=== PATIENT | female | born 1980 ===

== ENCOUNTER 2018-02-05 11:28 | Emergency (ER) | payer OTHER ==
[~2018-02-05] VITALS: Ht 170.2 cm; Wt 129.3 kg
[~2018-02-05 11:28] MED LIST: AMOX500 PO; Advil200 M1 PO; Augmentin 875-1 EACH PO; BACL10 PO; Bactrim Ds Tab1 EACH PO; CEPH500 PO; DOCU100 PO; FAMO20 PO; GABA100 PO; GABA300 PO; GLIP2.5ER PO; HEARTBURN RELI150 M1 PO; HYDR1TAB94 PO; Humalog100 UNIT/1 SC; IBUP800; IBUP800 PO; INSLI100I; INSUASPI SC; INSULANPEN SC; LORA.5 PO; Lantus100 UNIT/1 SC; METF500C PO; MORP60ER PO; NICO14TP TOP; NITR100 PO; NYSTATIN1 EAC1 TOP; OXYC5 PO; PAROEX473 ML MM; PRAV20 PO; ROXICODONE5 MG PO; SULTRIDS PO; TRAM50 PO; TYLECOD3 PO; Tylenol325 MG PO
[2018-02-05] MEDS ORDERED: ELIQUIS5 MG PO (12:13)
== END 2018-02-05 12:43 | disposition home or self-care (01) ==
LOC: ER 11:28
DX: I10 Essential (primary) hypertension (principal); Z86.73 Personal history of transient ischemic attack (TIA), and cerebral infarction without residual deficits; Z91.018 Allergy to other foods; Z79.899 Other long term (current) drug therapy; Z79.84 Long term (current) use of oral hypoglycemic drugs; Z79.4 Long term (current) use of insulin; E11.9 Type 2 diabetes mellitus without complications; K21.9 Gastro-esophageal reflux disease without esophagitis
CPT/HCPCS: 99283

== ENCOUNTER 2018-02-11 14:29 | Emergency (ER) | payer OTHER ==
[~2018-02-11] VITALS: Ht 167.6 cm; Wt 136.1 kg
[~2018-02-11 14:29] MED LIST changes: +ELIQUIS5 MG PO
[2018-02-11 15:47] LABS: BASOPHILS ABSOLUTE AUTO 0.03 K/mm3 (0.00-0.23); BASOPHILS PERCENT AUTO 0 % (0-2); EOSINOPHILS ABSOLUTE AUTO 0.18 K/mm3 (0.00-0.68); EOSINOPHILS PERCENT AUTO 2 % (0-6); Hematocrit 40.5 % (33.0-51.0); Hemoglobin 13.9 g/dL (11.5-16.0); IMMATURE GRAN ABSOLUTE AUTO 0.01 K/mm3 (0.00-0.10); IMMATURE GRAN PERCENT AUTO 0 % (0-1); LYMPHOCYTES ABSOLUTE AUTO 3.16 K/mm3 (0.84-5.20); LYMPHOCYTES PERCENT AUTO 39 % (21-46); MONOCYTES ABSOLUTE AUTO 0.48 K/mm3 (0.16-1.47); MONOCYTES PERCENT AUTO 6 % (4-13); Mean Corpuscular HGB 31.2 pg (26.0-34.0); Mean Corpuscular HGB Conc 34.3 g/dL (31.5-36.5); Mean Corpuscular Volume 91 fL (80-100); Mean Platelet Volume 11.1 fL (9.1-12.4); NEUTROPHILS ABSOLUTE AUTO 4.23 K/mm3 (1.96-9.15); NEUTROPHILS PERCENT AUTO 52 % (41-73); Platelet Count 276 K/mm3 (150-400); RDW Standard Deviation 39.5 fL (35.1-46.3); Red Blood Cell Count 4.45 M/mm3 (3.80-5.20); White Blood Cell Count 8.09 K/mm3 (4.00-11.30)
[2018-02-11 16:00] LABS: International Normalized Ratio 0.95; Prothrombin Time Results 9.8 Sec (9.7-11.5)
[2018-02-11 16:06] LABS: Alanine Aminotransfer (ALT/SGP 66 U/L (12-78); Albumin, Blood 3.2 g/dL (3.4-5.0); Albumin/Globulin Ratio 0.7 (0.8-1.8); Alk Phos 165 U/L (50-136); Anion Gap 8 mmol/L (6-16); Aspartate Aminotrans (AST/SGOT 44 U/L (12-37); Bilirubin, Total 0.3 mg/dL (0.1-1.0); Blood Urea Nitrogen 21 mg/dL (8-24); Bun/Creatinine Ratio 37.2 (12.0-20.0); CO2, Blood 27 mmol/L (21-32); Calcium, Blood 8.6 mg/dL (8.5-10.1); Chloride, Blood 101 mmol/L (98-108); Creatinine, Blood 0.57 mg/dL (0.40-1.00); Globulin, Blood 4.6 g/dL (2.2-4.0); Glomerular Filtration Rate >60 (60-); Glucose, Blood 278 mg/dL (70-99); Potassium, Blood 4.4 mmol/L (3.5-5.5); Sodium, Blood 136 mmol/L (136-145); Total Protein, Blood 7.8 g/dL (6.4-8.2)
== END 2018-02-11 17:28 | disposition home or self-care (01) ==
LOC: ER 14:29
PROVIDERS: Physician Assistant
DX: H53.9 Unspecified visual disturbance (principal); E11.9 Type 2 diabetes mellitus without complications; K21.9 Gastro-esophageal reflux disease without esophagitis; Z91.018 Allergy to other foods; Z79.899 Other long term (current) drug therapy; Z79.4 Long term (current) use of insulin; Z79.01 Long term (current) use of anticoagulants; Z87.891 Personal history of nicotine dependence; Z86.73 Personal history of transient ischemic attack (TIA), and cerebral infarction without residual deficits
CPT/HCPCS: 70450; 80053; 82947; 85025; 85610; 93005; 93010; 99284-25

== ENCOUNTER 2018-02-21 22:11 | Inpatient (IN) | payer OTHER ==
[~2018-02-21] VITALS: Ht 167.6 cm; Wt 136.1 kg
[2018-02-21 22:49] LABS: BASOPHILS ABSOLUTE AUTO 0.02 K/mm3 (0.00-0.23); BASOPHILS PERCENT AUTO 0 % (0-2); EOSINOPHILS ABSOLUTE AUTO 0.19 K/mm3 (0.00-0.68); EOSINOPHILS PERCENT AUTO 2 % (0-6); Hematocrit 43.5 % (33.0-51.0); Hemoglobin 14.4 g/dL (11.5-16.0); IMMATURE GRAN ABSOLUTE AUTO 0.02 K/mm3 (0.00-0.10); IMMATURE GRAN PERCENT AUTO 0 % (0-1); LYMPHOCYTES ABSOLUTE AUTO 3.05 K/mm3 (0.84-5.20); LYMPHOCYTES PERCENT AUTO 32 % (21-46); MONOCYTES ABSOLUTE AUTO 0.56 K/mm3 (0.16-1.47); MONOCYTES PERCENT AUTO 6 % (4-13); Mean Corpuscular HGB 31.2 pg (26.0-34.0); Mean Corpuscular HGB Conc 33.1 g/dL (31.5-36.5); Mean Platelet Volume 10.5 fL (9.1-12.4); NEUTROPHILS ABSOLUTE AUTO 5.81 K/mm3 (1.96-9.15); NEUTROPHILS PERCENT AUTO 60 % (41-73); Platelet Count 211 K/mm3 (150-400); RDW Coefficient Variation 12.2 % (11.7-14.2); RDW Standard Deviation 42.2 fL (35.1-46.3); Red Blood Cell Count 4.62 M/mm3 (3.80-5.20); White Blood Cell Count 9.65 K/mm3 (4.00-11.30)
[2018-02-21 22:50] LABS: Mean Corpuscular Volume 94 fL (80-100)
[2018-02-21 23:06] LABS: Alanine Aminotransfer (ALT/SGP 46 U/L (12-78); Albumin, Blood 3.1 g/dL (3.4-5.0); Albumin/Globulin Ratio 0.7 (0.8-1.8); Alk Phos 141 U/L (50-136); Anion Gap 8 mmol/L (6-16); Aspartate Aminotrans (AST/SGOT 26 U/L (12-37); Bilirubin, Total 0.3 mg/dL (0.1-1.0); Blood Urea Nitrogen 18 mg/dL (8-24); Bun/Creatinine Ratio 14.4 (12.0-20.0); CO2, Blood 26 mmol/L (21-32); Calcium, Blood 8.5 mg/dL (8.5-10.1); Chloride, Blood 102 mmol/L (98-108); Creatinine, Blood 1.25 mg/dL (0.40-1.00); Globulin, Blood 4.5 g/dL (2.2-4.0); Glomerular Filtration Rate 51 (60-); Glucose, Blood 198 mg/dL (70-99); Potassium, Blood 4.2 mmol/L (3.5-5.5); Sodium, Blood 136 mmol/L (136-145); Total Protein, Blood 7.6 g/dL (6.4-8.2); Troponin I <0.015 ng/mL (0.000-0.040)
[2018-02-21 23:14] LABS: Source, Urine Catheter
[2018-02-21 23:21] LABS: Bilirubin, Urine Neg (Neg); Blood, Urine Neg (Neg); Glucose Qualitative, Urine 2+ (Neg); Ketones, Urine Neg (Neg); Leukocyte Esterase, Urine 2+ (Neg); Nitrite, Urine Pos (Neg); Protein, Urine 1+ (Neg); Urobilinogen, Urine NORM (Normal)
[2018-02-21 23:21] LABS: International Normalized Ratio 0.92; Prothrombin Time Results 9.5 Sec (9.7-11.5)
[2018-02-21 23:26] LABS: Appearance, Urine Hazy (Clear); Color, Urine Yellow (P-Yellow)
[2018-02-21 23:27] LABS: Bacteria Many /hpf; Red Blood Cells, Urine Not Seen /hpf (0-2); Squamous Epithelial Cells Rare /hpf (Few)
[2018-02-21 23:36] LABS: U Amphetamine Screen Not Detected; U Barbituate Screen Not Detected; U Benzodiazapine Screen Not Detected; U Buprenorphine Screen Not Detected; U Cannabinoids Screen DETECTED; U Cocaine Screen Not Detected; U Methadone Screen Not Detected; U Methamphetamine Screen Not Detected; U Opiates Screen Not Detected; U Oxycodone Screen Not Detected; U Phencyclidine Screen Not Detected; U Propoxyphene Screen Not Detected
[2018-02-23] MEDS ORDERED: CEPH500 PO (12:33)
[2018-02-23] MEDS ORDERED: LEVE500 PO (12:35)
[2018-02-23] MEDS ORDERED: Prinivil10 MG PO (12:44)
[2018-02-23] MEDS ORDERED: METF500C PO (12:45)
[2018-02-25] MEDS ORDERED: GUAI600T33 PO (14:01)
[2018-02-25] MEDS ORDERED: FLONASE ALLERG9.9 ML (14:03)
[2018-02-25] MEDS ORDERED: NYSTATIN1 EAC1 TOP (14:04)
[2018-02-25] MEDS ORDERED: BISA10S PR (14:07)
[2018-02-25] MEDS ORDERED: DOCU100 PO (14:09)
[2018-03-02] MEDS ORDERED: ASPI325 PO (16:07)
[2018-03-02] MEDS ORDERED: INSULANPEN SC (16:08)
== END 2018-02-25 17:23 | disposition home or self-care (01) | DRG 690 ==
LOC: ER 22:11 → MEDS 22:12 → ICUE 02-22 09:51 → MEDS 02-23 14:59 → ENPENDDIS 02-25 13:30 → MEDS 02-25 17:23
PROVIDERS: Emergency Medicine
DX: N39.0 Urinary tract infection, site not specified (principal); G82.20 Paraplegia, unspecified; I69.354 Hemiplegia and hemiparesis following cerebral infarction affecting left non-dominant side; Z68.42 Body mass index [BMI] 45.0-49.9, adult; I11.9 Hypertensive heart disease without heart failure; Z79.01 Long term (current) use of anticoagulants; Z79.4 Long term (current) use of insulin; E66.01 Morbid (severe) obesity due to excess calories; I10 Essential (primary) hypertension; F15.10 Other stimulant abuse, uncomplicated; G40.909 Epilepsy, unspecified, not intractable, without status epilepticus; F31.9 Bipolar disorder, unspecified; B95.2 Enterococcus as the cause of diseases classified elsewhere; Z87.891 Personal history of nicotine dependence
CPT/HCPCS: 36415; 70450; 70496; 70498; 70551; 80053; 81001; 82947; 83036; 84484; 85025; 85610; 85730; 87077; 87086; 87186; 92610; 93005; 93010; 96361; 96365; 99285-25; G0378; G8996; G8997; G8998; J0696; J1815; J7030; J7050; P9612; Q9967

== ENCOUNTER 2018-03-27 12:56 | Emergency (ER) | payer OTHER ==
[~2018-03-27] VITALS: Ht 170.2 cm; Wt 143.3 kg
[~2018-03-27 12:56] MED LIST changes: +ALBU90OI6 INH; +ASPI325 PO; +BASAGLAR K100 UNIT/1 SC; +BISA10S PR; +Cyclobenzaprine5 MG PO; +FLONASE ALLERG9.9 ML; +GUAI600T33 PO; +LEVE500 PO; +Prinivil10 MG PO
[2018-03-27 14:38] LABS: BASOPHILS ABSOLUTE AUTO 0.02 K/mm3 (0.00-0.23); BASOPHILS PERCENT AUTO 0 % (0-2); EOSINOPHILS ABSOLUTE AUTO 0.11 K/mm3 (0.00-0.68); EOSINOPHILS PERCENT AUTO 1 % (0-6); Hematocrit 47.1 % (33.0-51.0); Hemoglobin 15.8 g/dL (11.5-16.0); IMMATURE GRAN ABSOLUTE AUTO 0.02 K/mm3 (0.00-0.10); IMMATURE GRAN PERCENT AUTO 0 % (0-1); LYMPHOCYTES ABSOLUTE AUTO 2.54 K/mm3 (0.84-5.20); LYMPHOCYTES PERCENT AUTO 26 % (21-46); MONOCYTES ABSOLUTE AUTO 0.52 K/mm3 (0.16-1.47); MONOCYTES PERCENT AUTO 5 % (4-13); Mean Corpuscular HGB 30.6 pg (26.0-34.0); Mean Corpuscular HGB Conc 33.5 g/dL (31.5-36.5); Mean Corpuscular Volume 91 fL (80-100); Mean Platelet Volume 10.8 fL (9.1-12.4); NEUTROPHILS ABSOLUTE AUTO 6.76 K/mm3 (1.96-9.15); NEUTROPHILS PERCENT AUTO 68 % (41-73); Platelet Count 253 K/mm3 (150-400); RDW Coefficient Variation 11.3 % (11.7-14.2); RDW Standard Deviation 38.2 fL (35.1-46.3); Red Blood Cell Count 5.16 M/mm3 (3.80-5.20); White Blood Cell Count 9.97 K/mm3 (4.00-11.30)
[2018-03-27 14:52] LABS: Alanine Aminotransfer (ALT/SGP 33 U/L (12-78); Albumin, Blood 3.5 g/dL (3.4-5.0); Albumin/Globulin Ratio 0.7 (0.8-1.8); Alk Phos 143 U/L (50-136); Anion Gap 9 mmol/L (6-16); Aspartate Aminotrans (AST/SGOT 21 U/L (12-37); Bilirubin, Total 0.4 mg/dL (0.1-1.0); Blood Urea Nitrogen 20 mg/dL (8-24); Bun/Creatinine Ratio 30.4 (12.0-20.0); CO2, Blood 26 mmol/L (21-32); Calcium, Blood 9.3 mg/dL (8.5-10.1); Chloride, Blood 100 mmol/L (98-108); Creatinine, Blood 0.66 mg/dL (0.40-1.00); Glomerular Filtration Rate >60 (60-); Glucose, Blood 246 mg/dL (70-99); Potassium, Blood 4.4 mmol/L (3.5-5.5); Sodium, Blood 135 mmol/L (136-145); Total Protein, Blood 8.5 g/dL (6.4-8.2)
[2018-03-27] MEDS ORDERED: Doxycycline Hy100 MG PO (16:59)
[2018-03-29] MEDS ORDERED: HYDR1TAB94 PO (15:48)
== END 2018-03-27 18:49 | disposition home or self-care (01) ==
LOC: ER 12:56
PROVIDERS: Emergency Medicine
DX: L03.115 Cellulitis of right lower limb (principal); Z91.018 Allergy to other foods; Z79.899 Other long term (current) drug therapy; Z88.8 Allergy status to other drugs, medicaments and biological substances; Z79.4 Long term (current) use of insulin; Z79.82 Long term (current) use of aspirin; E11.9 Type 2 diabetes mellitus without complications; K21.9 Gastro-esophageal reflux disease without esophagitis; Z87.891 Personal history of nicotine dependence
CPT/HCPCS: 36415; 73701; 80053; 85025; 96361; 96374; 99284-25; J2270; J7030; Q9967

== ENCOUNTER 2018-03-28 11:37 | Emergency (ER) | payer OTHER ==
[~2018-03-28] VITALS: Ht 170.2 cm; Wt 143.3 kg
[~2018-03-28 11:37] MED LIST changes: +Doxycycline Hy100 MG PO
[2018-03-29] MEDS ORDERED: HYDR1TAB94 PO (15:48)
== END 2018-03-28 13:25 | disposition home or self-care (01) ==
LOC: ER 11:37
DX: L03.115 Cellulitis of right lower limb (principal); E11.9 Type 2 diabetes mellitus without complications; K21.9 Gastro-esophageal reflux disease without esophagitis; Z91.018 Allergy to other foods; Z88.6 Allergy status to analgesic agent; Z79.899 Other long term (current) drug therapy; Z79.4 Long term (current) use of insulin; Z79.01 Long term (current) use of anticoagulants; Z79.82 Long term (current) use of aspirin; Z87.891 Personal history of nicotine dependence
CPT/HCPCS: 99282

== ENCOUNTER 2018-05-13 09:12 | Emergency (ER) | payer OTHER ==
[~2018-05-13] VITALS: Ht 167.6 cm; Wt 136.1 kg
[2018-05-13] MEDS ORDERED: INSULANPEN (09:24)
[2018-05-13] MEDS ORDERED: FAMO20 PO (09:25)
[2018-05-13] MEDS ORDERED: ADMELOG SO100 UNIT/1 SQ (09:26)
[2018-05-13 09:53] LABS: BASOPHILS ABSOLUTE AUTO 0.02 K/mm3 (0.00-0.23); BASOPHILS PERCENT AUTO 0 % (0-2); EOSINOPHILS PERCENT AUTO 1 % (0-6); Hematocrit 43.2 % (33.0-51.0); Hemoglobin 14.8 g/dL (11.5-16.0); IMMATURE GRAN ABSOLUTE AUTO 0.04 K/mm3 (0.00-0.10); IMMATURE GRAN PERCENT AUTO 1 % (0-1); LYMPHOCYTES ABSOLUTE AUTO 3.07 K/mm3 (0.84-5.20); LYMPHOCYTES PERCENT AUTO 40 % (21-46); MONOCYTES ABSOLUTE AUTO 0.59 K/mm3 (0.16-1.47); MONOCYTES PERCENT AUTO 8 % (4-13); Mean Corpuscular HGB 30.5 pg (26.0-34.0); Mean Corpuscular HGB Conc 34.3 g/dL (31.5-36.5); Mean Corpuscular Volume 89 fL (80-100); Mean Platelet Volume 10.5 fL (9.1-12.4); NEUTROPHILS ABSOLUTE AUTO 3.92 K/mm3 (1.96-9.15); NEUTROPHILS PERCENT AUTO 51 % (41-73); Platelet Count 223 K/mm3 (150-400); RDW Coefficient Variation 11.5 % (11.7-14.2); RDW Standard Deviation 36.8 fL (35.1-46.3); Red Blood Cell Count 4.86 M/mm3 (3.80-5.20); White Blood Cell Count 7.74 K/mm3 (4.00-11.30)
[2018-05-13 10:09] LABS: Alanine Aminotransfer (ALT/SGP 30 U/L (12-78); Albumin, Blood 3.3 g/dL (3.4-5.0); Albumin/Globulin Ratio 0.8 (0.8-1.8); Alk Phos 157 U/L (50-136); Anion Gap 7 mmol/L (6-16); Aspartate Aminotrans (AST/SGOT 16 U/L (12-37); Bilirubin, Total 0.3 mg/dL (0.1-1.0); Blood Urea Nitrogen 21 mg/dL (8-24); Bun/Creatinine Ratio 38.5 (12.0-20.0); CO2, Blood 24 mmol/L (21-32); Calcium, Blood 8.4 mg/dL (8.5-10.1); Chloride, Blood 104 mmol/L (98-108); Creatinine, Blood 0.55 mg/dL (0.40-1.00); Globulin, Blood 4.3 g/dL (2.2-4.0); Glomerular Filtration Rate >60 (60-); Glucose, Blood 278 mg/dL (70-99); Potassium, Blood 4.1 mmol/L (3.5-5.5); Sodium, Blood 135 mmol/L (136-145); Total Protein, Blood 7.6 g/dL (6.4-8.2); Troponin I <0.015 ng/mL (0.000-0.040)
== END 2018-05-13 14:43 | disposition home or self-care (01) ==
LOC: ER 09:12
PROVIDERS: Emergency Medicine
DX: R51 Headache (principal); R07.9 Chest pain, unspecified; E11.9 Type 2 diabetes mellitus without complications; K21.9 Gastro-esophageal reflux disease without esophagitis; Z91.018 Allergy to other foods; Z88.6 Allergy status to analgesic agent; Z79.899 Other long term (current) drug therapy; Z79.01 Long term (current) use of anticoagulants; Z79.4 Long term (current) use of insulin; Z79.82 Long term (current) use of aspirin
CPT/HCPCS: 36415; 70450; 80053; 84484; 85025; 93005; 93010; 96361; 96374; 96375; 99284-25; J1200; J1630; J2765; J7030

== ENCOUNTER 2018-06-03 16:55 | Observation (INO) | payer OTHER ==
[~2018-06-03] VITALS: Ht 170.2 cm; Wt 150.2 kg
[~2018-06-03 16:55] MED LIST changes: +ADMELOG SO100 UNIT/1 SQ; +INSULANPEN
[2018-06-03 17:55] LABS: BASOPHILS ABSOLUTE AUTO 0.02 K/mm3 (0.00-0.23); BASOPHILS PERCENT AUTO 0 % (0-2); EOSINOPHILS ABSOLUTE AUTO 0.12 K/mm3 (0.00-0.68); EOSINOPHILS PERCENT AUTO 1 % (0-6); Hematocrit 44.6 % (33.0-51.0); Hemoglobin 15.1 g/dL (11.5-16.0); IMMATURE GRAN ABSOLUTE AUTO 0.03 K/mm3 (0.00-0.10); IMMATURE GRAN PERCENT AUTO 0 % (0-1); LYMPHOCYTES ABSOLUTE AUTO 3.08 K/mm3 (0.84-5.20); LYMPHOCYTES PERCENT AUTO 32 % (21-46); MONOCYTES ABSOLUTE AUTO 0.58 K/mm3 (0.16-1.47); MONOCYTES PERCENT AUTO 6 % (4-13); Mean Corpuscular HGB 30.3 pg (26.0-34.0); Mean Corpuscular HGB Conc 33.9 g/dL (31.5-36.5); Mean Corpuscular Volume 89 fL (80-100); Mean Platelet Volume 10.4 fL (9.1-12.4); NEUTROPHILS ABSOLUTE AUTO 5.92 K/mm3 (1.96-9.15); NEUTROPHILS PERCENT AUTO 61 % (41-73); Platelet Count 278 K/mm3 (150-400); RDW Coefficient Variation 11.6 % (11.7-14.2); RDW Standard Deviation 37.5 fL (35.1-46.3); Red Blood Cell Count 4.99 M/mm3 (3.80-5.20); White Blood Cell Count 9.75 K/mm3 (4.00-11.30)
[2018-06-03 18:15] LABS: Alanine Aminotransfer (ALT/SGP 40 U/L (12-78); Albumin, Blood 3.5 g/dL (3.4-5.0); Albumin/Globulin Ratio 0.7 (0.8-1.8); Alk Phos 144 U/L (50-136); Anion Gap 6 mmol/L (6-16); Aspartate Aminotrans (AST/SGOT 14 U/L (12-37); Bilirubin, Total 0.4 mg/dL (0.1-1.0); Blood Urea Nitrogen 14 mg/dL (8-24); Bun/Creatinine Ratio 20.3 (12.0-20.0); CO2, Blood 26 mmol/L (21-32); Calcium, Blood 8.8 mg/dL (8.5-10.1); Chloride, Blood 103 mmol/L (98-108); Creatinine, Blood 0.69 mg/dL (0.40-1.00); Globulin, Blood 4.9 g/dL (2.2-4.0); Glomerular Filtration Rate >60 (60-); Glucose, Blood 233 mg/dL (70-99); Sodium, Blood 135 mmol/L (136-145); Total Protein, Blood 8.4 g/dL (6.4-8.2)
--- NOTE | 2018-06-04 04:11 | NUR ---
SHIFT SUMMARY 8991 RECEIVED PT TO 355 VIA W/C FROM ER. A&O, ABLE TO PIVOT TX SELF TO BED. RECEIVED REPORT FROM TANA NEGRETE, PT SENT TO ER FROM PODIATRY FOR I&D ON LATERAL R FOOT. PER REPORT, U/S DONE NOT SHOWING NEED FOR I&D AT THIS TIME. PT ADMITTED FOR CELLULITIS. IV ABX STARTED. PLACED IN CONTACT ISO FOR HX OF MRSA AND ESBL. PT RECEIVED IV DILAUDID IN ER. PER REPORT, PT SOON VOMITED AFTERWARD. ZOFRAN ADMIN AFTER COMING TO . PT WITH HX PARAPLEGIC, SEIZURES, TIAS, AND IDDM. CONSULT ORDERED FOR DR BARRERA. ATTEMPTED TO CALL, BUT DR BARRERA DOES NOT USE ANS. DAY RN WILL NEED TO COMPLETE CONSULT WHEN OFFICE IS OPEN. SCD'S ORDERED; PT REFUSED. INCONTINENT OF BOWEL AND BLADDER, PT REPORTED THAT SHE IS UNAWARE OF WHEN SHE VOIDS OR HAS BM. PT CLEANED AND CHANGED. MEDICATED FOR C/O PAIN IN R FOOT; PER EMAR. DENIED FURTHER NEEDS. CALL LT IN REACH.
[2018-06-04 04:48] LABS: Hematocrit 39.7 % (33.0-51.0); Hemoglobin 13.2 g/dL (11.5-16.0); Mean Corpuscular HGB 30.2 pg (26.0-34.0); Mean Corpuscular HGB Conc 33.2 g/dL (31.5-36.5); Mean Corpuscular Volume 91 fL (80-100); Mean Platelet Volume 10.3 fL (9.1-12.4); Platelet Count 234 K/mm3 (150-400); RDW Coefficient Variation 11.6 % (11.7-14.2); RDW Standard Deviation 38.6 fL (35.1-46.3); Red Blood Cell Count 4.37 M/mm3 (3.80-5.20); White Blood Cell Count 11.74 K/mm3 (4.00-11.30)
[2018-06-04 05:11] LABS: International Normalized Ratio 0.97
--- NOTE | 2018-06-04 15:29 | NUR ---
SUMMARY PT IS A/O X4, PLEASANT AFFECT. SHE STATE NO FEELING BACK OF LEGS FROM TAILBONE DOWN R/T HX SPINAL CORD FX. STATE SHE DOES HAVE SOME FEELING FRONT OF LEGS & HAS BEEN HAVING ACUTE R FOOT PAIN & SPASMS. PODIATRY CONSULT CALLED THIS AM TO DR MARQUEZ, IN TO ASSESS R FOOT, NO OPEN AREAS, FOOT IS SOMEWHAT SWOLLEN. ORDER MRI & STATE NON WT BRG R FOOT UNTIL HE SEE RESULTS. IV ANTIBX CONTINUE. HER PERIPHERAL IV FAIL THIS AM, EMERGENCY DEPARTMENT AIDE PLACE RACIEL POWERGLIDE. BLOOD SUGARS 200'S, DR LUNA AWARE. PT STATE @ BASELINE SHE IS ABLE TO STAND-PIVOT TO W/C. STATE NO CONTORL OF URINE/BOWELS, INCONT. VSS.
[2018-06-04 22:34] LABS: Vancomycin, Trough 14.7 ug/mL (5.0-10.0)
--- NOTE | 2018-06-05 04:51 | NUR ---
SHIFT SUMMARY A/O X4, ABLE TO MAKE NEEDS KNOWN. COOPERATIVE WITH CARE. CALLS AND ANSWERS QUESTIONS APPROPRIATELY. C/O PAIN/DISCOMFORT T/O SHIFT RATED 8/10 TO RLE; MEDICATED PER EMAR. HYPERTENSIVE THIS AM; WILL RE-CHECK; AFEBRILE. DID NOT APPEAR TO REST MUCH OF SHIFT. IV ABX INFUSED WITHOUT COMPLICATION TO RACIEL POWERGLIDE. BLOOD GLUCOSE 284; COVERAGE PER EMAR. NO ACUTE CHANGES NOTED OVERNIGHT. BED IN LOWEST POSITION. CALL LIGHT AND BELONGINGS WITHIN REACH. WCTM. REPORT TO ONCOMING RN.
[2018-06-05] MEDS ORDERED: CEPH250A PO (13:58)
--- NOTE | 2018-06-05 15:41 | NUR ---
SHIFT SUMMARY. PT DISCHARGED HOME VIA [facility] VIA PERSONAL W/C. POWERGLIDE IV REMOVED. NEW RX FAXED TO [facility] PER PT REQUEST. D/C PAPERWORK REVIEWED WITH PT AND COPY PROVIDED. PT HAD NO C/O N/V, PAIN, SOB THIS SHIFT. RLE WITHOUT S/SX OF CELLULITIS. NO NEW CHANGES.
== END 2018-06-05 15:32 | disposition home or self-care (01) ==
LOC: DELPENDDIS → ER 16:55 → MEDS 16:56 → ENPENDDIS 06-04 14:31 → MEDS 06-05 15:32
PROVIDERS: Nurse Practitioner Acute Care; Physician Assistant; ADMIT Family Medicine
DX: L03.115 Cellulitis of right lower limb (principal); I10 Essential (primary) hypertension; E11.9 Type 2 diabetes mellitus without complications; I69.351 Hemiplegia and hemiparesis following cerebral infarction affecting right dominant side; E66.01 Morbid (severe) obesity due to excess calories; Z79.899 Other long term (current) drug therapy; Z88.8 Allergy status to other drugs, medicaments and biological substances; Z79.82 Long term (current) use of aspirin; Z87.891 Personal history of nicotine dependence; Z79.4 Long term (current) use of insulin; Z98.890 Other specified postprocedural states; Z68.43 Body mass index [BMI] 50.0-59.9, adult
CPT/HCPCS: 36415; 73630; 73720; 76882; 80053; 80202; 82947; 83605; 85025; 85027; 85610; 86140; 87040; 94760; 96360; 96361; 96365; 96366; 96367; 96375; 96376; 99285-25; A9577; G0378; J0690; J1170; J2405; J2543; J3370; J7050

== ENCOUNTER 2018-08-24 10:24 | Emergency (ER) | payer OTHER ==
[~2018-08-24] VITALS: Ht 167.6 cm; Wt 142.9 kg
[~2018-08-24 10:24] MED LIST changes: +CEPH250A PO
[2018-08-24 12:53] LABS: BASOPHILS ABSOLUTE AUTO 0.02 K/mm3 (0.00-0.23); BASOPHILS PERCENT AUTO 0 % (0-2); EOSINOPHILS ABSOLUTE AUTO 0.11 K/mm3 (0.00-0.68); EOSINOPHILS PERCENT AUTO 1 % (0-6); Hematocrit 45.5 % (33.0-51.0); IMMATURE GRAN ABSOLUTE AUTO 0.03 K/mm3 (0.00-0.10); IMMATURE GRAN PERCENT AUTO 0 % (0-1); LYMPHOCYTES ABSOLUTE AUTO 2.63 K/mm3 (0.84-5.20); LYMPHOCYTES PERCENT AUTO 34 % (21-46); MONOCYTES PERCENT AUTO 5 % (4-13); Mean Corpuscular HGB 30.8 pg (26.0-34.0); Mean Corpuscular HGB Conc 35.2 g/dL (31.5-36.5); Mean Corpuscular Volume 88 fL (80-100); Mean Platelet Volume 11.7 fL (9.1-12.4); NEUTROPHILS ABSOLUTE AUTO 4.59 K/mm3 (1.96-9.15); NEUTROPHILS PERCENT AUTO 59 % (41-73); Platelet Count 220 K/mm3 (150-400); RDW Coefficient Variation 11.5 % (11.7-14.2); RDW Standard Deviation 36.7 fL (35.1-46.3); White Blood Cell Count 7.78 K/mm3 (4.00-11.30)
[2018-08-24 13:07] LABS: International Normalized Ratio 0.94
== END 2018-08-24 11:34 | disposition home or self-care (01) ==
LOC: ER 10:24
PROVIDERS: Physician Assistant
DX: T80.89XA Other complications following infusion, transfusion and therapeutic injection, initial encounter (principal); S30.1XXA Contusion of abdominal wall, initial encounter; X58.XXXA Exposure to other specified factors, initial encounter; Z88.8 Allergy status to other drugs, medicaments and biological substances; Z91.018 Allergy to other foods; Z79.899 Other long term (current) drug therapy; Z79.82 Long term (current) use of aspirin; Z79.4 Long term (current) use of insulin; E11.9 Type 2 diabetes mellitus without complications; K21.9 Gastro-esophageal reflux disease without esophagitis; Z86.73 Personal history of transient ischemic attack (TIA), and cerebral infarction without residual deficits; Z87.891 Personal history of nicotine dependence
CPT/HCPCS: 36415; 85025; 85610; 85730; 99283

== ENCOUNTER 2018-12-12 19:16 | Observation (INO) | payer OTHER ==
[~2018-12-12] VITALS: Ht 162.5 cm; Wt 142.9 kg
[~2018-12-12 19:16] MED LIST changes: +ADMELOG SO100 UNIT/1 SC; -ADMELOG SO100 UNIT/1 SQ; -FLONASE ALLERG9.9 ML; +Flonase 0.05% N16 GM; -INSULANPEN
[2018-12-12 20:12] LABS: BASOPHILS ABSOLUTE AUTO 0.02 K/mm3 (0.00-0.23); BASOPHILS PERCENT AUTO 0 % (0-2); EOSINOPHILS ABSOLUTE AUTO 0.09 K/mm3 (0.00-0.68); EOSINOPHILS PERCENT AUTO 1 % (0-6); Hemoglobin 16.3 g/dL (11.5-16.0); IMMATURE GRAN ABSOLUTE AUTO 0.03 K/mm3 (0.00-0.10); IMMATURE GRAN PERCENT AUTO 0 % (0-1); LYMPHOCYTES ABSOLUTE AUTO 2.02 K/mm3 (0.84-5.20); LYMPHOCYTES PERCENT AUTO 25 % (21-46); MONOCYTES ABSOLUTE AUTO 0.41 K/mm3 (0.16-1.47); MONOCYTES PERCENT AUTO 5 % (4-13); Mean Corpuscular HGB 31.3 pg (26.0-34.0); Mean Corpuscular HGB Conc 34.7 g/dL (31.5-36.5); Mean Corpuscular Volume 90 fL (80-100); Mean Platelet Volume 10.9 fL (9.1-12.4); NEUTROPHILS ABSOLUTE AUTO 5.44 K/mm3 (1.96-9.15); NEUTROPHILS PERCENT AUTO 68 % (41-73); Platelet Count 248 K/mm3 (150-400); RDW Coefficient Variation 11.8 % (11.7-14.2); RDW Standard Deviation 38.8 fL (35.1-46.3); White Blood Cell Count 8.01 K/mm3 (4.00-11.30)
[2018-12-12 20:35] LABS: Alanine Aminotransfer (ALT/SGP 116 U/L (12-78); Albumin, Blood 3.5 g/dL (3.4-5.0); Albumin/Globulin Ratio 0.7 (0.8-1.8); Alk Phos 241 U/L (50-136); Anion Gap 10 mmol/L (6-16); Aspartate Aminotrans (AST/SGOT 65 U/L (12-37); Bilirubin, Total 0.6 mg/dL (0.1-1.0); Blood Urea Nitrogen 13 mg/dL (8-24); Bun/Creatinine Ratio 22.3 (12.0-20.0); CO2, Blood 25 mmol/L (21-32); Calcium, Blood 8.7 mg/dL (8.5-10.1); Chloride, Blood 100 mmol/L (98-108); Creatinine, Blood 0.58 mg/dL (0.40-1.00); Globulin, Blood 4.9 g/dL (2.2-4.0); Glomerular Filtration Rate >60 (60-); Glucose, Blood 367 mg/dL (70-99); Sodium, Blood 135 mmol/L (136-145); Total Protein, Blood 8.4 g/dL (6.4-8.2)
--- NOTE | 2018-12-12 23:31 | NUR ---
too report on this patient from DELORES Flores RN
[2018-12-13 05:02] LABS: Hematocrit 43.6 % (33.0-51.0); Hemoglobin 14.8 g/dL (11.5-16.0); Mean Corpuscular HGB Conc 33.9 g/dL (31.5-36.5); Mean Corpuscular Volume 91 fL (80-100); Mean Platelet Volume 10.8 fL (9.1-12.4); Platelet Count 221 K/mm3 (150-400); RDW Coefficient Variation 11.8 % (11.7-14.2); RDW Standard Deviation 39.6 fL (35.1-46.3); Red Blood Cell Count 4.77 M/mm3 (3.80-5.20); White Blood Cell Count 6.95 K/mm3 (4.00-11.30)
[2018-12-13 05:42] LABS: Alanine Aminotransfer (ALT/SGP 91 U/L (12-78); Albumin, Blood 3.1 g/dL (3.4-5.0); Albumin/Globulin Ratio 0.7 (0.8-1.8); Alk Phos 188 U/L (50-136); Anion Gap 8 mmol/L (6-16); Aspartate Aminotrans (AST/SGOT 43 U/L (12-37); Bilirubin, Total 0.5 mg/dL (0.1-1.0); Blood Urea Nitrogen 14 mg/dL (8-24); Bun/Creatinine Ratio 21.6 (12.0-20.0); CO2, Blood 25 mmol/L (21-32); Calcium, Blood 8.2 mg/dL (8.5-10.1); Chloride, Blood 103 mmol/L (98-108); Creatinine, Blood 0.65 mg/dL (0.40-1.00); Globulin, Blood 4.2 g/dL (2.2-4.0); Glomerular Filtration Rate >60 (60-); Glucose, Blood 378 mg/dL (70-99); Potassium, Blood 4.1 mmol/L (3.5-5.5); Sodium, Blood 136 mmol/L (136-145); Total Protein, Blood 7.3 g/dL (6.4-8.2)
--- NOTE | 2018-12-13 19:42 | NUR ---
SHIFT SUMMARY: NO ACUTE CHANGES TO REPORT THIS SHIFT. PT A&O; CALM AND COOPERATIVE WITH CARE. MEDICATED FOR R FOOT PAIN PER EMAR; PODIATRY CONSULT REQUESTED c DR MORRIS THIS SHIFT. PT WHEELCHAIR BOUND AT HOME; INCONTINENT OF BOWEL & BLADDER; ATTENDS IN PLACE. REPORT GIVEN TO ONCOMING RN.
--- NOTE | 2018-12-14 04:14 | NUR ---
12/14/18 0410 WATCHING TV AND C/O RT FOOT PAIN AT LEVEL "10". MEDICATED PER JUL.TAKING ORAL FLUIDS WELL. VITALS STABLE. NO OTHER S/S OR COMPLAINTS. INCONT. OF URINE AND CHANGED REGULARLY BY SENIOR REGULATORY AFFAIRS SPECIALIST.
[2018-12-14 04:43] LABS: BASOPHILS ABSOLUTE AUTO 0.02 K/mm3 (0.00-0.23); BASOPHILS PERCENT AUTO 0 % (0-2); EOSINOPHILS PERCENT AUTO 1 % (0-6); Hematocrit 41.3 % (33.0-51.0); Hemoglobin 13.8 g/dL (11.5-16.0); IMMATURE GRAN ABSOLUTE AUTO 0.03 K/mm3 (0.00-0.10); IMMATURE GRAN PERCENT AUTO 0 % (0-1); LYMPHOCYTES ABSOLUTE AUTO 2.24 K/mm3 (0.84-5.20); LYMPHOCYTES PERCENT AUTO 31 % (21-46); MONOCYTES PERCENT AUTO 7 % (4-13); Mean Corpuscular HGB 30.1 pg (26.0-34.0); Mean Corpuscular HGB Conc 33.4 g/dL (31.5-36.5); Mean Corpuscular Volume 90 fL (80-100); Mean Platelet Volume 10.9 fL (9.1-12.4); NEUTROPHILS ABSOLUTE AUTO 4.28 K/mm3 (1.96-9.15); NEUTROPHILS PERCENT AUTO 60 % (41-73); Platelet Count 202 K/mm3 (150-400); RDW Coefficient Variation 11.9 % (11.7-14.2); RDW Standard Deviation 38.5 fL (35.1-46.3); Red Blood Cell Count 4.59 M/mm3 (3.80-5.20); White Blood Cell Count 7.17 K/mm3 (4.00-11.30)
[2018-12-14 05:01] LABS: Alanine Aminotransfer (ALT/SGP 93 U/L (12-78); Albumin, Blood 3.1 g/dL (3.4-5.0); Albumin/Globulin Ratio 0.8 (0.8-1.8); Alk Phos 126 U/L (50-136); Anion Gap 6 mmol/L (6-16); Aspartate Aminotrans (AST/SGOT 47 U/L (12-37); Bilirubin, Total 0.6 mg/dL (0.1-1.0); Blood Urea Nitrogen 15 mg/dL (8-24); Bun/Creatinine Ratio 22.1 (12.0-20.0); CO2, Blood 28 mmol/L (21-32); Calcium, Blood 8.6 mg/dL (8.5-10.1); Chloride, Blood 102 mmol/L (98-108); Creatinine, Blood 0.68 mg/dL (0.40-1.00); Globulin, Blood 3.8 g/dL (2.2-4.0); Glomerular Filtration Rate >60 (60-); Glucose, Blood 308 mg/dL (70-99); Potassium, Blood 4.1 mmol/L (3.5-5.5); Sodium, Blood 136 mmol/L (136-145); Total Protein, Blood 6.9 g/dL (6.4-8.2)
--- NOTE | 2018-12-14 19:34 | NUR ---
SHIFT SUMMARY: NO ACUTE CHANGES TO REPORT THIS SHIFT. PT A&O; CALM AND COOPERATIVE WITH CARE. MEDICATED FOR R FOOT PAIN PER EMAR. PODIATRY (DR MORRIS) CONSULTED THIS SHIFT - AWAITING ASSESSMENT. IV ABX CONTINUING. REPORT GIVEN TO ONCOMING RN.
[2018-12-15 04:54] LABS: BASOPHILS ABSOLUTE AUTO 0.02 K/mm3 (0.00-0.23); BASOPHILS PERCENT AUTO 0 % (0-2); EOSINOPHILS ABSOLUTE AUTO 0.09 K/mm3 (0.00-0.68); EOSINOPHILS PERCENT AUTO 1 % (0-6); Hematocrit 44.5 % (33.0-51.0); IMMATURE GRAN ABSOLUTE AUTO 0.04 K/mm3 (0.00-0.10); IMMATURE GRAN PERCENT AUTO 1 % (0-1); LYMPHOCYTES ABSOLUTE AUTO 2.46 K/mm3 (0.84-5.20); LYMPHOCYTES PERCENT AUTO 36 % (21-46); MONOCYTES ABSOLUTE AUTO 0.48 K/mm3 (0.16-1.47); MONOCYTES PERCENT AUTO 7 % (4-13); Mean Corpuscular HGB 30.7 pg (26.0-34.0); Mean Corpuscular HGB Conc 33.7 g/dL (31.5-36.5); Mean Corpuscular Volume 91 fL (80-100); Mean Platelet Volume 10.8 fL (9.1-12.4); NEUTROPHILS ABSOLUTE AUTO 3.68 K/mm3 (1.96-9.15); NEUTROPHILS PERCENT AUTO 54 % (41-73); Platelet Count 201 K/mm3 (150-400); RDW Coefficient Variation 11.6 % (11.7-14.2); RDW Standard Deviation 38.7 fL (35.1-46.3); Red Blood Cell Count 4.89 M/mm3 (3.80-5.20); White Blood Cell Count 6.77 K/mm3 (4.00-11.30)
--- NOTE | 2018-12-15 06:55 | NUR ---
SHIFT SUMMARY PATEINT BEDFAST AND INCONTINENT. CHANGED MULTIPLE TIMES THROUGHOUT THE NIGHT. PATEINT REPEATEDLY REQUESTING PAIN MEDICATIONS FOR RIGHT FOOT PAIN. NO ACUTE EVENTS OVERNIGHT.
[2018-12-15] MEDS ORDERED: BASAGLAR K100 UNIT/1 SC (12:50)
[2018-12-15] MEDS ORDERED: ACET325 PO (12:52)
[2018-12-15] MEDS ORDERED: CLIN300 PO (12:58)
[2018-12-15] MEDS ORDERED: HYDR1TAB94 PO (12:59)
[2018-12-15] MEDS ORDERED: Florastor250 MG PO (13:01)
[2018-12-15] MEDS ORDERED: ONDA4ODT MM (13:01)
[2018-12-15] MEDS ORDERED: HYDR10 PO (13:01)
--- NOTE | 2018-12-15 13:35 | NUR ---
D/C INSTRUCTIONS PROVIDED AND EXPLAINED TO PT. MEDS FAXED TO [facility] ON [address] WRITTEN SCRIPT PROVIDED TO PT. IV REMOVED. PT D/C VIA WHEELCHAIR WITH FILM DEVELOPING MACHINE OPERATOR AND FAMILY AT 1330.
[2019-03-14] MEDS ORDERED: Prednisone20 MG PO (20:45)
== END 2018-12-15 13:33 | disposition home or self-care (01) ==
LOC: ER 19:16 → MEDS 19:18 → ER 22:36 → MEDS 23:50 → ER 12-13 00:06 → MEDS 12-13 00:06 → ENPENDDIS 12-15 11:58 → MEDS 12-15 13:33
PROVIDERS: Family Medicine; Physician Assistant; ADMIT Internal Medicine
DX: L03.115 Cellulitis of right lower limb (principal); R53.81 Other malaise; E66.01 Morbid (severe) obesity due to excess calories; K21.9 Gastro-esophageal reflux disease without esophagitis; F31.9 Bipolar disorder, unspecified; I10 Essential (primary) hypertension; E11.65 Type 2 diabetes mellitus with hyperglycemia; G40.909 Epilepsy, unspecified, not intractable, without status epilepticus; E78.5 Hyperlipidemia, unspecified; M62.838 Other muscle spasm; Z86.73 Personal history of transient ischemic attack (TIA), and cerebral infarction without residual deficits; Z88.6 Allergy status to analgesic agent; Z79.84 Long term (current) use of oral hypoglycemic drugs; Z68.43 Body mass index [BMI] 50.0-59.9, adult
CPT/HCPCS: 36415; 73700; 80053; 82947; 83036; 85025; 85027; 86140; 96365; 96366; 96372; 96375; 96376; 97165; 97530; 99284-25; G0378; J0360; J1650; J1815; J2270; J3010; J7050

== ENCOUNTER 2019-01-21 10:40 | Emergency (ER) | payer OTHER ==
[~2019-01-21] VITALS: Ht 167.6 cm; Wt 181.4 kg
[~2019-01-21 10:40] MED LIST changes: +ACET325 PO; +CLIN300 PO; +Florastor250 MG PO; +HYDR10 PO; +ONDA4ODT MM
[2019-01-21] MEDS ORDERED: INSULANPEN SC (11:49)
[2019-01-21 11:58] LABS: BASOPHILS ABSOLUTE AUTO 0.02 K/mm3 (0.00-0.23); BASOPHILS PERCENT AUTO 0 % (0-2); EOSINOPHILS ABSOLUTE AUTO 0.09 K/mm3 (0.00-0.68); EOSINOPHILS PERCENT AUTO 1 % (0-6); Hematocrit 44.2 % (33.0-51.0); Hemoglobin 14.9 g/dL (11.5-16.0); IMMATURE GRAN ABSOLUTE AUTO 0.03 K/mm3 (0.00-0.10); IMMATURE GRAN PERCENT AUTO 0 % (0-1); LYMPHOCYTES ABSOLUTE AUTO 1.88 K/mm3 (0.84-5.20); LYMPHOCYTES PERCENT AUTO 27 % (21-46); MONOCYTES ABSOLUTE AUTO 0.48 K/mm3 (0.16-1.47); MONOCYTES PERCENT AUTO 7 % (4-13); Mean Corpuscular HGB 30.7 pg (26.0-34.0); Mean Corpuscular HGB Conc 33.7 g/dL (31.5-36.5); Mean Corpuscular Volume 91 fL (80-100); Mean Platelet Volume 10.9 fL (9.1-12.4); NEUTROPHILS ABSOLUTE AUTO 4.37 K/mm3 (1.96-9.15); NEUTROPHILS PERCENT AUTO 64 % (41-73); Platelet Count 199 K/mm3 (150-400); RDW Coefficient Variation 11.5 % (11.7-14.2); RDW Standard Deviation 38.3 fL (35.1-46.3); Red Blood Cell Count 4.85 M/mm3 (3.80-5.20); White Blood Cell Count 6.87 K/mm3 (4.00-11.30)
[2019-01-21 12:14] LABS: Alanine Aminotransfer (ALT/SGP 109 U/L (12-78); Albumin, Blood 3.2 g/dL (3.4-5.0); Albumin/Globulin Ratio 0.7 (0.8-1.8); Alk Phos 199 U/L (50-136); Anion Gap 9 mmol/L (6-16); Aspartate Aminotrans (AST/SGOT 52 U/L (12-37); Bilirubin, Total 0.5 mg/dL (0.1-1.0); Blood Urea Nitrogen 14 mg/dL (8-24); Bun/Creatinine Ratio 28.7 (12.0-20.0); CO2, Blood 25 mmol/L (21-32); Chloride, Blood 103 mmol/L (98-108); Creatinine, Blood 0.49 mg/dL (0.40-1.00); Globulin, Blood 4.4 g/dL (2.2-4.0); Glomerular Filtration Rate >60 (60-); Glucose, Blood 345 mg/dL (70-99); Potassium, Blood 4.3 mmol/L (3.5-5.5); Sodium, Blood 137 mmol/L (136-145); Total Protein, Blood 7.6 g/dL (6.4-8.2)
[2019-01-21] MEDS ORDERED: Cleocin HCl300 MG PO (13:13)
[2019-03-14] MEDS ORDERED: Prednisone20 MG PO (20:45)
== END 2019-01-21 14:11 | disposition home or self-care (01) ==
LOC: ER 10:40
PROVIDERS: Physician Assistant
DX: M62.838 Other muscle spasm (principal); Z88.8 Allergy status to other drugs, medicaments and biological substances; Z91.018 Allergy to other foods; Z79.899 Other long term (current) drug therapy; Z79.4 Long term (current) use of insulin; E11.9 Type 2 diabetes mellitus without complications; K21.9 Gastro-esophageal reflux disease without esophagitis; Z86.73 Personal history of transient ischemic attack (TIA), and cerebral infarction without residual deficits; Z87.891 Personal history of nicotine dependence
CPT/HCPCS: 36415; 73620; 76882; 80053; 85025; 96365; 99284-25

== ENCOUNTER 2019-05-15 11:03 | Emergency (ER) | payer OTHER ==
[~2019-05-15] VITALS: Ht 167.6 cm; Wt 181.4 kg
[~2019-05-15 11:03] MED LIST changes: +Cleocin HCl300 MG PO; +Prednisone20 MG PO
[2019-05-15 13:55] LABS: Calcium, Ionized (POC) 1.12 mmol/L (1.10-1.46); Chloride (POC) 103 mmol/L (98-108); Creatinine (POC) 0.5 mg/dL (0.6-1.0); Glucose (ISTAT POC) 342 mg/dL (70-99); Hemoglobin (POC) 15.3 g/dL (12.0-16.0); Potassium (POC) 4.4 mmol/L (3.5-5.5); Sodium (POC) 135 mmol/L (135-148); Total CO2 (POC) 23 mmol/L (21-32)
== END 2019-05-15 14:25 | disposition home or self-care (01) ==
LOC: ER 11:03
PROVIDERS: Physician Assistant
DX: E11.42 Type 2 diabetes mellitus with diabetic polyneuropathy (principal); Z91.018 Allergy to other foods; Z88.8 Allergy status to other drugs, medicaments and biological substances; Z79.899 Other long term (current) drug therapy; Z79.4 Long term (current) use of insulin; Z79.52 Long term (current) use of systemic steroids; K21.9 Gastro-esophageal reflux disease without esophagitis; Z86.73 Personal history of transient ischemic attack (TIA), and cerebral infarction without residual deficits; Z87.891 Personal history of nicotine dependence
CPT/HCPCS: 36415; 80047; 85014; 93971; 99284-25

== ENCOUNTER 2019-07-18 19:31 | Observation (INO) | payer OTHER ==
[~2019-07-18] VITALS: Ht 167.6 cm; Wt 163.3 kg
[~2019-07-18 19:31] MED LIST changes: +BASAGLAR K100 UNIT/2 SC
[2019-07-18 23:38] LABS: BASOPHILS ABSOLUTE AUTO 0.01 K/mm3 (0.00-0.23); BASOPHILS PERCENT AUTO 0 % (0-2); EOSINOPHILS ABSOLUTE AUTO 0.03 K/mm3 (0.00-0.68); EOSINOPHILS PERCENT AUTO 1 % (0-6); Hematocrit 47.9 % (33.0-51.0); IMMATURE GRAN ABSOLUTE AUTO 0.01 K/mm3 (0.00-0.10); IMMATURE GRAN PERCENT AUTO 0 % (0-1); LYMPHOCYTES ABSOLUTE AUTO 1.53 K/mm3 (0.84-5.20); LYMPHOCYTES PERCENT AUTO 33 % (21-46); MONOCYTES ABSOLUTE AUTO 0.39 K/mm3 (0.16-1.47); MONOCYTES PERCENT AUTO 8 % (4-13); Mean Corpuscular HGB 30.1 pg (26.0-34.0); Mean Corpuscular HGB Conc 33.4 g/dL (31.5-36.5); Mean Corpuscular Volume 90 fL (80-100); Mean Platelet Volume 10.9 fL (9.1-12.4); NEUTROPHILS ABSOLUTE AUTO 2.66 K/mm3 (1.96-9.15); NEUTROPHILS PERCENT AUTO 58 % (41-73); Platelet Count 191 K/mm3 (150-400); RDW Coefficient Variation 11.7 % (11.7-14.2); RDW Standard Deviation 38.6 fL (35.1-46.3); Red Blood Cell Count 5.31 M/mm3 (3.80-5.20); White Blood Cell Count 4.63 K/mm3 (4.00-11.30)
[2019-07-19 00:02] LABS: Alanine Aminotransfer (ALT/SGP 218 U/L (12-78); Albumin, Blood 3.6 g/dL (3.4-5.0); Albumin/Globulin Ratio 0.7 (0.8-1.8); Alk Phos 202 U/L (50-136); Anion Gap 8 mmol/L (6-16); Aspartate Aminotrans (AST/SGOT 98 U/L (12-37); Bilirubin, Total 0.6 mg/dL (0.1-1.0); Blood Urea Nitrogen 21 mg/dL (8-24); Bun/Creatinine Ratio 27.7 (12.0-20.0); CO2, Blood 28 mmol/L (21-32); Calcium, Blood 9.4 mg/dL (8.5-10.1); Chloride, Blood 97 mmol/L (98-108); Creatinine, Blood 0.76 mg/dL (0.40-1.00); Globulin, Blood 4.9 g/dL (2.2-4.0); Glomerular Filtration Rate >60 (60-); Glucose, Blood 433 mg/dL (70-99); Potassium, Blood 4.2 mmol/L (3.5-5.5); Sodium, Blood 133 mmol/L (136-145); Total Protein, Blood 8.5 g/dL (6.4-8.2)
--- NOTE | 2019-07-19 05:16 | NUR ---
SHIFT SUMMARY: JUAN WAS ADMITTED TO THE FLOOR LAST NIGHT AROUND 3 AM FOR PNEUMONIA AND TACHYCARDIA. SHE ARRIVED TO THE ROOM VIA GURNEY, AND TRANSFERRED TO THE BED WITH 2 PERSON ASSIST. HAS HISTORY OF CVA WITH LEFT SIDED WEAKNESS, SOMETIMES USES WHEELCHAIR AT HOME, BUT HAS BEEN WORKING WITH PT TO REGAIN HER ABILITY TO WALK. SHE IS AOX3, BUT IS HAS A SLIGHT DELAY IN COGNITION. LUNG SOUNDS ARE DIMINISHED WITH EXPIRTORY WHEEZES. COUGH IS PRODUCTIVE WITH SMALL AMOUNT OF MABRY SECREATIONS. NO OXYGEN INDICATED. SATS IN THE 90'S. HR IS TACHYCARDIC RUNNING IN THE 110'S. BLOOD PRESSURE IS ELEVATED WELL WITH DIASTOLIC IN THE 110'S. MILD PAIN NOTED TO RIB CAGE AREA. IV TO THE RIGHT AC INFUSING NS AT 100ML/HR. NO SKIN BREAKDOWN, OTHER THEN DRY FLACKY SKIN TO BILATERAL FEET AREA. SETTLED PATIENT IN ROOM, GAVE HER A SNACK. SHE WATCHED TV FOR A SHORT PERIOD OF TIME THEN WENT TO SLEEP. WILL REPORT TO DAY SHIFT OF ANY CHANGES.
--- NOTE | 2019-07-19 06:30 | NUR ---
Patient gave this nursing informatics clinical analyst permission to take care of her today 07/19/2019.
--- NOTE | 2019-07-19 11:50 | NUR ---
NOTIFIED D SUGAR 457. MED SLIDING SCALE SAYS 12 UNITS FOR UP TO 400 AND CALL MD. NO NEW ORDERS.
[2019-07-19 12:49] LABS: Hematocrit 45.1 % (33.0-51.0); Hemoglobin 15.2 g/dL (11.5-16.0); Mean Corpuscular HGB 30.3 pg (26.0-34.0); Mean Corpuscular HGB Conc 33.7 g/dL (31.5-36.5); Mean Corpuscular Volume 90 fL (80-100); Mean Platelet Volume 10.9 fL (9.1-12.4); Platelet Count 187 K/mm3 (150-400); RDW Coefficient Variation 11.5 % (11.7-14.2); RDW Standard Deviation 37.2 fL (35.1-46.3); Red Blood Cell Count 5.02 M/mm3 (3.80-5.20); White Blood Cell Count 6.36 K/mm3 (4.00-11.30)
[2019-07-19 13:01] LABS: Alanine Aminotransfer (ALT/SGP 207 U/L (12-78); Albumin, Blood 3.3 g/dL (3.4-5.0); Albumin/Globulin Ratio 0.7 (0.8-1.8); Alk Phos 185 U/L (50-136); Anion Gap 13 mmol/L (6-16); Aspartate Aminotrans (AST/SGOT 92 U/L (12-37); Bilirubin, Total 0.5 mg/dL (0.1-1.0); Blood Urea Nitrogen 22 mg/dL (8-24); Bun/Creatinine Ratio 33.8 (12.0-20.0); CO2, Blood 18 mmol/L (21-32); Calcium, Blood 8.7 mg/dL (8.5-10.1); Chloride, Blood 102 mmol/L (98-108); Creatinine, Blood 0.65 mg/dL (0.40-1.00); Globulin, Blood 4.7 g/dL (2.2-4.0); Glomerular Filtration Rate >60 (60-); Glucose, Blood 462 mg/dL (70-99); Potassium, Blood 4.2 mmol/L (3.5-5.5); Sodium, Blood 133 mmol/L (136-145)
--- NOTE | 2019-07-19 15:16 | NUR ---
AWARE HEART RATE ST ONE TEENS TO ONE 20'S. NO NEW ORDERS.
[2019-07-19] MEDS ORDERED: CLOP75 PO (15:26)
[2019-07-19] MEDS ORDERED: ARIPIPRAZOLE5 MG PO (15:27)
[2019-07-19] MEDS ORDERED: KETO15TC TOP (15:29)
[2019-07-19] MEDS ORDERED: Clotrimazole15 GM TOP (15:32)
[2019-07-19] MEDS ORDERED: Humalog100 UNIT/1 SC (15:33)
[2019-07-19 15:59] LABS: Adenovirus Not Detected (NOT DETECT); Bordetella pertussis Not Detected (NOT DETECT); Chlamydophila pneumoniae Not Detected (NOT DETECT); Coronavirus 229E Not Detected (NOT DETECT); Coronavirus HKU1 Not Detected (NOT DETECT); Coronavirus NL63 Not Detected (NOT DETECT); Coronavirus OC43 Not Detected (NOT DETECT); Human Metapneumovirus Not Detected (NOT DETECT); Human Rhinovirus/Enterovirus Not Detected (NOT DETECT); Influenza A Not Detected (NOT DETECT); Influenza A/2009-H1 Not Detected (NOT DETECT); Influenza A/H1 Not Detected (NOT DETECT); Influenza A/H3 Not Detected (NOT DETECT); Influenza B Not Detected (NOT DETECT); Mycoplasma pneumoniae Not Detected (NOT DETECT); Parainfluenza Virus 1 Not Detected (NOT DETECT); Parainfluenza Virus 2 Not Detected (NOT DETECT); Parainfluenza Virus 3 Not Detected (NOT DETECT); Parainfluenza Virus 4 Not Detected (NOT DETECT); Respiratory Syncytial Virus Not Detected (NOT DETECT)
--- NOTE | 2019-07-19 16:42 | NUR ---
FAXED [facility] TWICE TO GET MED LIST. NOTIFIED MED LIST UPDATED. ADVISED TO CHECK. WILL WATCH FOR CHANGES.
--- NOTE | 2019-07-19 18:36 | NUR ---
ALERT. ORIENTED. APPEARS DELAYED COGNITION. PATIENT DOES STATE SHE CAN NOT READ OR WRITE. HEART RATE ST UP TO 120'S WITH MD AWARE. INDEPENDENT IN ROOM. AT TIMES INCONTINENT OF URINE. COOPERATIVE. IV PATENT. C/O PAIN TO RIB AREA DUE TO COUGHING. HAS NOT BEEN COUGHING THIS SHIFT, BUT MEDICATED FOR W/GOOD RESULTS. WCTM
--- NOTE | 2019-07-19 22:16 | NUR ---
BLOOD GLUCOSE BLOOD GLUCOSE THIS EVENING WAS 437. 62 UNITS OF LANTUS GIVEN AND 12 UNITS OF HUMALOG GIVEN PER ORDERS. AFTER INSULIN GIVEN NOTIFIED KAPIL FRENCH. NO FURTHER ORDERS AT THIS TIME.
[2019-07-20 05:05] LABS: Hematocrit 44.3 % (33.0-51.0); Hemoglobin 14.4 g/dL (11.5-16.0); Mean Corpuscular HGB 29.8 pg (26.0-34.0); Mean Corpuscular HGB Conc 32.5 g/dL (31.5-36.5); Mean Corpuscular Volume 92 fL (80-100); Mean Platelet Volume 11.1 fL (9.1-12.4); Platelet Count 198 K/mm3 (150-400); RDW Coefficient Variation 11.5 % (11.7-14.2); RDW Standard Deviation 38.7 fL (35.1-46.3); Red Blood Cell Count 4.84 M/mm3 (3.80-5.20); White Blood Cell Count 8.71 K/mm3 (4.00-11.30)
--- NOTE | 2019-07-20 05:06 | NUR ---
SHIFT SUMMARY PT PLEASANT AND COOPERATIVE THIS EVENING. PT HAS HX OF A STROKE WITH LEFT SIDED DEFICITS. PT STATES THAT PREVIOUSLY SHE WAS WHEELCHAIR OVIEDO DUE TO THIS. PT IS CURRENTLY WEAKER ON THE LEFT SIDE BUT AMBULATES WELL INDEPENDENTLY TO THE RESTROOM. PT DOES COMPLAIN OF RIB PAIN FROM COUGHING. 5 MG FLEXERIL GIVEN WITH GOOD EFFECT. HOWEVER, PT WAS RARELY HEARD COUGHING. CBG 437 AT BEDTIME. COVERED WITH 62 UNITS LANTUS AND 12 UNITS HUMALOG PER ORDERS. LABORER PULLET FARM HOSPITALIST KAPIL FRENCH NOTIFIED WHO DID NOT WISH TO ORDER ANY ADDITIONAL INSULIN THIS EVENING. PT DID CONTINUE TO BE TACHYCARDIC THIS EVENING BUT HAD IMPROVED FROM 120 TO 109 THROUGHOUT THE NIGHT. BLOOD PRESSURE IMPROVED SLIGHTLY THIS AM WELL TO 144/74. OTHERWISE, NO ACUTE CHANGES. PT SLEPT OFF AND ON THROUGHOUT THE NIGHT. WILL CONTINUE TO MONITOR. OTHERWISE NO ACUTE CHANGES.
[2019-07-20 05:47] LABS: Alanine Aminotransfer (ALT/SGP 171 U/L (12-78); Albumin, Blood 3.2 g/dL (3.4-5.0); Albumin/Globulin Ratio 0.7 (0.8-1.8); Alk Phos 123 U/L (50-136); Anion Gap 14 mmol/L (6-16); Aspartate Aminotrans (AST/SGOT 55 U/L (12-37); Bilirubin, Total 0.6 mg/dL (0.1-1.0); Blood Urea Nitrogen 21 mg/dL (8-24); Bun/Creatinine Ratio 32.7 (12.0-20.0); CO2, Blood 14 mmol/L (21-32); Calcium, Blood 8.5 mg/dL (8.5-10.1); Chloride, Blood 106 mmol/L (98-108); Creatinine, Blood 0.64 mg/dL (0.40-1.00); Globulin, Blood 4.5 g/dL (2.2-4.0); Glomerular Filtration Rate >60 (60-); Glucose, Blood 356 mg/dL (70-99); Potassium, Blood 4.9 mmol/L (3.5-5.5); Sodium, Blood 134 mmol/L (136-145); Total Protein, Blood 7.7 g/dL (6.4-8.2)
--- NOTE | 2019-07-20 14:58 | NUR ---
Pt. is in bed resting offered prayers for pt.
--- NOTE | 2019-07-20 18:46 | NUR ---
alert. oriented. cognition impaired. denies any pain or sob. independent in room. incontinent of urine at times. heart rate has been slightly tachy just over 100. poor control of diabetes and blood pressure per patient. wctm
[2019-07-21 05:25] LABS: Alanine Aminotransfer (ALT/SGP 137 U/L (12-78); Albumin, Blood 3.1 g/dL (3.4-5.0); Albumin/Globulin Ratio 0.8 (0.8-1.8); Alk Phos 133 U/L (50-136); Anion Gap 10 mmol/L (6-16); Aspartate Aminotrans (AST/SGOT 49 U/L (12-37); Bilirubin, Total 0.6 mg/dL (0.1-1.0); Blood Urea Nitrogen 19 mg/dL (8-24); Bun/Creatinine Ratio 31.7 (12.0-20.0); CO2, Blood 20 mmol/L (21-32); Calcium, Blood 8.4 mg/dL (8.5-10.1); Chloride, Blood 106 mmol/L (98-108); Globulin, Blood 4.1 g/dL (2.2-4.0); Glomerular Filtration Rate >60 (60-); Glucose, Blood 247 mg/dL (70-99); Phosphorus, Blood 2.9 mg/dL (2.5-4.9); Potassium, Blood 3.8 mmol/L (3.5-5.5); Sodium, Blood 136 mmol/L (136-145); Total Protein, Blood 7.2 g/dL (6.4-8.2)
--- NOTE | 2019-07-21 05:59 | NUR ---
SHIFT SUMMARY PT PLEASANT AND COOPERATIVE WITH CARE. AAO, RESP E/U ON RA, DENIES PAIN OR DISCOMFORT. HAS SLEPT MOST OF THE NIGHT. VSS. APPEARS IN NO ACUTE DISTRESS. WILL CONTINUE TO MONITOR.
[2019-07-21] MEDS ORDERED: Prednisone10 MG (10:14)
[2019-07-21] MEDS ORDERED: LEVOFLOXACIN750 MG PO (10:16)
[2019-07-21] MEDS ORDERED: HUMALOG KW200 UNIT/1 (10:16)
--- NOTE | 2019-07-21 11:03 | NUR ---
dc paperwork completed by cn, reviewed with pt, iv removed with no issues, pt is sitting on bedside waiting transport, indpendant in , will continue to monitor until escort arrives with wc to take her to exit.
--- NOTE | 2019-07-21 14:44 | NUR ---
PT. is doing well and may go home today prayed for pt.
== END 2019-07-21 11:07 | disposition home or self-care (01) ==
LOC: ER 19:31 → MEDS 19:32 → ENPENDDIS 07-21 08:30 → MEDS 07-21 11:07
PROVIDERS: Emergency Medicine; Internal Medicine; ADMIT Internal Medicine
DX: J20.9 Acute bronchitis, unspecified (principal); J44.0 Chronic obstructive pulmonary disease with (acute) lower respiratory infection; J44.1 Chronic obstructive pulmonary disease with (acute) exacerbation; E86.0 Dehydration; E11.65 Type 2 diabetes mellitus with hyperglycemia; F31.9 Bipolar disorder, unspecified; Z86.73 Personal history of transient ischemic attack (TIA), and cerebral infarction without residual deficits; Z79.4 Long term (current) use of insulin; Z79.02 Long term (current) use of antithrombotics/antiplatelets; Z87.891 Personal history of nicotine dependence; Z91.018 Allergy to other foods; Z79.899 Other long term (current) drug therapy
CPT/HCPCS: 0099U; 36415; 71046; 80053; 82947; 84100; 84145; 84443; 85025; 85027; 93005; 93010; 96361; 96365; 96366; 96367; 96372; 96375; 96376; 99285-25; A9270; A9270-GY; G0378; J0456; J0696; J1100; J1200; J1650; J1885; J1956; J2765; J2930; J7030; J7050; J7512

== ENCOUNTER 2020-02-23 13:50 | Emergency (ER) | payer OTHER | END 2020-02-23 20:12 | disposition home or self-care (01) | LOC: ER 13:50 | DX: E11.42 Type 2 diabetes mellitus with diabetic polyneuropathy (principal); E11.65 Type 2 diabetes mellitus with hyperglycemia; G40.909 Epilepsy, unspecified, not intractable, without status epilepticus; F31.9 Bipolar disorder, unspecified; I10 Essential (primary) hypertension; K21.9 Gastro-esophageal reflux disease without esophagitis; Z91.018 Allergy to other foods; Z79.899 Other long term (current) drug therapy; Z79.02 Long term (current) use of antithrombotics/antiplatelets; Z79.4 Long term (current) use of insulin; Z86.73 Personal history of transient ischemic attack (TIA), and cerebral infarction without residual deficits; Z87.891 Personal history of nicotine dependence ==

== ENCOUNTER 2020-12-16 12:47 | Emergency (ER) | payer OTHER ==
[~2020-12-16] VITALS: Ht 167.6 cm; Wt 167.8 kg
[~2020-12-16 12:47] MED LIST changes: +ARIPIPRAZOLE5 MG PO; +CLOP75 PO; +Clotrimazole15 GM TOP; +HUMALOG KW200 UNIT/1; +HUMALOG100 UNIT/1 SC; +KETO15TC TOP; +Keppra750 MG PO; -LEVE500 PO; +LEVOFLOXACIN750 MG PO; -PRAV20 PO; +Pravachol40 MG PO; +Prednisone10 MG
[2020-12-16 15:50] LABS: BASOPHILS ABSOLUTE AUTO 0.03 K/mm3 (0.00-0.23); BASOPHILS PERCENT AUTO 0 % (0-2); EOSINOPHILS ABSOLUTE AUTO 0.12 K/mm3 (0.00-0.68); EOSINOPHILS PERCENT AUTO 2 % (0-6); Hematocrit 37.3 % (33.0-51.0); Hemoglobin 11.7 g/dL (11.5-16.0); IMMATURE GRAN ABSOLUTE AUTO 0.02 K/mm3 (0.00-0.10); IMMATURE GRAN PERCENT AUTO 0 % (0-1); LYMPHOCYTES ABSOLUTE AUTO 1.92 K/mm3 (0.84-5.20); LYMPHOCYTES PERCENT AUTO 25 % (21-46); MONOCYTES ABSOLUTE AUTO 0.49 K/mm3 (0.16-1.47); MONOCYTES PERCENT AUTO 6 % (4-13); Mean Corpuscular HGB 25.3 pg (26.0-34.0); Mean Corpuscular HGB Conc 31.4 g/dL (31.5-36.5); Mean Corpuscular Volume 81 fL (80-100); Mean Platelet Volume 10.1 fL (9.1-12.4); NEUTROPHILS ABSOLUTE AUTO 5.23 K/mm3 (1.96-9.15); NEUTROPHILS PERCENT AUTO 67 % (41-73); Platelet Count 298 K/mm3 (150-400); RDW Coefficient Variation 14.2 % (11.7-14.2); RDW Standard Deviation 41.1 fL (35.1-46.3); Red Blood Cell Count 4.63 M/mm3 (3.80-5.20); White Blood Cell Count 7.81 K/mm3 (4.00-11.30)
[2020-12-16 16:05] LABS: Anion Gap 6 mmol/L (6-16); Blood Urea Nitrogen 14 mg/dL (8-24); Bun/Creatinine Ratio 24.5 (12.0-20.0); CO2, Blood 25 mmol/L (21-32); Calcium, Blood 8.6 mg/dL (8.5-10.1); Chloride, Blood 104 mmol/L (98-108); Creatinine, Blood 0.57 mg/dL (0.40-1.00); Glomerular Filtration Rate >60 (60-); Glucose, Blood 277 mg/dL (70-99); Potassium, Blood 4.3 mmol/L (3.5-5.5); Sodium, Blood 135 mmol/L (136-145)
== END 2020-12-16 18:30 | disposition home or self-care (01) ==
LOC: ER 12:47
PROVIDERS: Student in an Organized Health Care Education/Training Program
DX: M62.838 Other muscle spasm (principal); E11.9 Type 2 diabetes mellitus without complications; I10 Essential (primary) hypertension; K21.9 Gastro-esophageal reflux disease without esophagitis; E11.40 Type 2 diabetes mellitus with diabetic neuropathy, unspecified; Z91.018 Allergy to other foods; Z79.899 Other long term (current) drug therapy; Z79.4 Long term (current) use of insulin; Z87.891 Personal history of nicotine dependence
CPT/HCPCS: 36415; 80048; 83735; 85025; 96372; 99283-25; A9270; J1885

== ENCOUNTER 2021-01-01 10:50 | Emergency (ER) | payer OTHER ==
[~2021-01-01] VITALS: Ht 167.6 cm; Wt 172.4 kg
[2021-01-01 12:38] LABS: BASOPHILS ABSOLUTE AUTO 0.03 K/mm3 (0.00-0.23); BASOPHILS PERCENT AUTO 0 % (0-2); EOSINOPHILS ABSOLUTE AUTO 0.16 K/mm3 (0.00-0.68); EOSINOPHILS PERCENT AUTO 2 % (0-6); Hematocrit 30.2 % (33.0-51.0); Hemoglobin 9.1 g/dL (11.5-16.0); IMMATURE GRAN ABSOLUTE AUTO 0.04 K/mm3 (0.00-0.10); IMMATURE GRAN PERCENT AUTO 1 % (0-1); LYMPHOCYTES ABSOLUTE AUTO 2.73 K/mm3 (0.84-5.20); LYMPHOCYTES PERCENT AUTO 32 % (21-46); MONOCYTES ABSOLUTE AUTO 0.62 K/mm3 (0.16-1.47); MONOCYTES PERCENT AUTO 7 % (4-13); Mean Corpuscular HGB 23.9 pg (26.0-34.0); Mean Corpuscular HGB Conc 30.1 g/dL (31.5-36.5); Mean Corpuscular Volume 80 fL (80-100); Mean Platelet Volume 10.7 fL (9.1-12.4); NEUTROPHILS ABSOLUTE AUTO 5.05 K/mm3 (1.96-9.15); NEUTROPHILS PERCENT AUTO 59 % (41-73); Platelet Count 374 K/mm3 (150-400); RDW Coefficient Variation 15.1 % (11.7-14.2); RDW Standard Deviation 43.7 fL (35.1-46.3); White Blood Cell Count 8.63 K/mm3 (4.00-11.30)
[2021-01-01 13:23] LABS: Alanine Aminotransfer (ALT/SGP 242 U/L (12-78); Albumin, Blood 3.1 g/dL (3.4-5.0); Albumin/Globulin Ratio 0.6 (0.8-1.8); Alk Phos 246 U/L (50-136); Anion Gap 7 mmol/L (6-16); Aspartate Aminotrans (AST/SGOT 132 U/L (12-37); Bilirubin, Total 0.6 mg/dL (0.1-1.0); Blood Urea Nitrogen 13 mg/dL (8-24); Bun/Creatinine Ratio 20.2 (12.0-20.0); CO2, Blood 24 mmol/L (21-32); Calcium, Blood 8.6 mg/dL (8.5-10.1); Chloride, Blood 100 mmol/L (98-108); Creatinine, Blood 0.65 mg/dL (0.40-1.00); Globulin, Blood 5.2 g/dL (2.2-4.0); Glomerular Filtration Rate >60 (60-); Glucose, Blood 405 mg/dL (70-99); Sodium, Blood 131 mmol/L (136-145); Total Protein, Blood 8.3 g/dL (6.4-8.2)
[2021-01-01] MEDS ORDERED: CEPH500 PO ×2 (16:12→16:15)
[2021-01-01] MEDS ORDERED: NITR100CA PO (16:22)
== END 2021-01-01 16:44 | disposition home or self-care (01) ==
LOC: ER 10:50
PROVIDERS: Physician Assistant
DX: J02.0 Streptococcal pharyngitis (principal); L02.01 Cutaneous abscess of face; E87.1 Hypo-osmolality and hyponatremia; N39.0 Urinary tract infection, site not specified; E11.9 Type 2 diabetes mellitus without complications; G40.909 Epilepsy, unspecified, not intractable, without status epilepticus; K21.9 Gastro-esophageal reflux disease without esophagitis; G82.20 Paraplegia, unspecified; T14.8XXS Other injury of unspecified body region, sequela; I10 Essential (primary) hypertension; F17.210 Nicotine dependence, cigarettes, uncomplicated; Z79.4 Long term (current) use of insulin; Z79.02 Long term (current) use of antithrombotics/antiplatelets; Z79.899 Other long term (current) drug therapy
CPT/HCPCS: 36415; 70491; 80053; 81025; 84703; 85025; 87430; 96374-59; 99284-25; A9270; J1885; Q9967

== ENCOUNTER → 2021-02-06 | Outpatient (CLI) | payer OTHER ==
[~2021-02-06] MED LIST changes: +NITR100CA PO
[2021-02-06 20:23] LABS: Magnesium, Blood 2.4 mg/dL (1.6-2.4); Thyroid Stimulating Hormone 2.19 uIU/mL (0.360-4.800)
== END ==
LOC: LAB 19:01 → LAB SHORT 19:01
PROVIDERS: Nurse Practitioner
DX: G25.81 Restless legs syndrome (principal); E11.65 Type 2 diabetes mellitus with hyperglycemia
CPT/HCPCS: 82607; 82728; 82746; 83036; 83735; 84443

== ENCOUNTER 2021-06-18 14:20 | Inpatient (IN) | payer OTHER ==
[~2021-06-18] VITALS: Ht 167.6 cm; Wt 153.0 kg
[2021-06-18 15:30] LABS: BASOPHILS ABSOLUTE AUTO 0.01 K/mm3 (0.00-0.23); BASOPHILS PERCENT AUTO 0 % (0-2); EOSINOPHILS PERCENT AUTO 0 % (0-6); Hematocrit 44.3 % (33.0-51.0); Hemoglobin 14.4 g/dL (11.5-16.0); IMMATURE GRAN ABSOLUTE AUTO 0.02 K/mm3 (0.00-0.10); IMMATURE GRAN PERCENT AUTO 0 % (0-1); LYMPHOCYTES ABSOLUTE AUTO 1.17 K/mm3 (0.84-5.20); LYMPHOCYTES PERCENT AUTO 22 % (21-46); MONOCYTES ABSOLUTE AUTO 0.44 K/mm3 (0.16-1.47); MONOCYTES PERCENT AUTO 8 % (4-13); Mean Corpuscular HGB 27.5 pg (26.0-34.0); Mean Corpuscular HGB Conc 32.5 g/dL (31.5-36.5); Mean Corpuscular Volume 85 fL (80-100); Mean Platelet Volume 11.2 fL (9.1-12.4); NEUTROPHILS ABSOLUTE AUTO 3.79 K/mm3 (1.96-9.15); NEUTROPHILS PERCENT AUTO 70 % (41-73); Platelet Count 193 K/mm3 (150-400); RDW Coefficient Variation 15.1 % (11.7-14.2); RDW Standard Deviation 46.8 fL (35.1-46.3); Red Blood Cell Count 5.23 M/mm3 (3.80-5.20); White Blood Cell Count 5.43 K/mm3 (4.00-11.30)
[2021-06-18 15:44] LABS: Albumin/Globulin Ratio 0.6 (0.8-1.8); Bilirubin, Total 0.5 mg/dL (0.1-1.0); Bun/Creatinine Ratio 20.4 (12.0-20.0); Calcium, Blood 8.3 mg/dL (8.5-10.1); Creatinine, Blood 1.13 mg/dL (0.40-1.00); Globulin, Blood 4.9 g/dL (2.2-4.0); Potassium, Blood 4.7 mmol/L (3.5-5.5); Total Protein, Blood 7.9 g/dL (6.4-8.2)
[2021-06-18 23:21] LABS: Glucose, Blood 573 mg/dL (70-99)
--- NOTE | 2021-06-19 00:48 | NUR ---
BLOOD GLUCOSE PT BLOOD GLUCOSE ELEVATED, CBG SHOWED HIGH. LAB IN ROOM TO TAKE LAB GLUCOSE WHICH RESULTED IN 573. INSULIN GIVEN PER EMAR, LONG AND SHORT ACTING. CBG RECHECKED, STILL CONTINUED TO SHOW HIGH. CALL PLACED TO MD FLANNERY. MD FLANNERY WITH ORDERS FOR 1L LR BOLUS AND 14 UNITS SHORT ACTING.
[2021-06-19 01:32] LABS: Glucose, Blood 622 mg/dL (70-99)
--- NOTE | 2021-06-19 02:36 | NUR ---
BLOOD GLUCOSE INSULIN AND LR BOLUS GIVEN, SEE PREVIOUS NOTE. BLOOD SUGAR RECHECKED, RESULTED >500. CALL PLACED TO MD FLANNERY. MD FLANNERY WITH ORDERS TO TRANSFER PATIENT TO ICU FOR INSULIN DRIP, STATING SUGARS CONTINUE TO INCREASE DESPITE INTERVENTIONS AND WILL TAKE TIME TO REGULATE.
[2021-06-19 03:14] LABS: BASOPHILS PERCENT AUTO 0 % (0-2); EOSINOPHILS PERCENT AUTO 0 % (0-6); Hematocrit 39.4 % (33.0-51.0); Hemoglobin 12.6 g/dL (11.5-16.0); IMMATURE GRAN ABSOLUTE AUTO 0.02 K/mm3 (0.00-0.10); IMMATURE GRAN PERCENT AUTO 0 % (0-1); LYMPHOCYTES ABSOLUTE AUTO 0.68 K/mm3 (0.84-5.20); LYMPHOCYTES PERCENT AUTO 14 % (21-46); MONOCYTES ABSOLUTE AUTO 0.11 K/mm3 (0.16-1.47); MONOCYTES PERCENT AUTO 2 % (4-13); Mean Corpuscular HGB 27.6 pg (26.0-34.0); Mean Corpuscular Volume 86 fL (80-100); Mean Platelet Volume 11.3 fL (9.1-12.4); NEUTROPHILS ABSOLUTE AUTO 3.97 K/mm3 (1.96-9.15); NEUTROPHILS PERCENT AUTO 83 % (41-73); Platelet Count 176 K/mm3 (150-400); RDW Coefficient Variation 15.3 % (11.7-14.2); RDW Standard Deviation 48.4 fL (35.1-46.3); Red Blood Cell Count 4.57 M/mm3 (3.80-5.20); White Blood Cell Count 4.78 K/mm3 (4.00-11.30)
[2021-06-19 03:33] LABS: Albumin, Blood 2.4 g/dL (3.4-5.0); Albumin/Globulin Ratio 0.5 (0.8-1.8); Bilirubin, Total 0.5 mg/dL (0.1-1.0); Bun/Creatinine Ratio 24.8 (12.0-20.0); Calcium, Blood 7.5 mg/dL (8.5-10.1); Creatinine, Blood 1.29 mg/dL (0.40-1.00); Globulin, Blood 4.6 g/dL (2.2-4.0); Potassium, Blood 5.2 mmol/L (3.5-5.5)
--- NOTE | 2021-06-19 04:18 | NUR ---
ARRIVED TO ICU FROM PCU12 PATIENT ARRIVED ON 2LPM NC WITH SPO2 IN LOW 90'S. A&O X 4, ABLE TO STAND AND PIVOT TRANSFER TO BED. 20G IN RT FA PATENT. NO MEDICATIONS INF AT THIS TIME. PATIENT BELONGINGS PLACED IN CUBBY IN ROOM. REPORT COMPLETED WITH PCU NURSE.
[2021-06-19 04:24] LABS: Glucose, Blood 636 mg/dL (70-99)
[2021-06-19 06:13] LABS: Glucose, Blood 624 mg/dL (70-99)
--- NOTE | 2021-06-19 06:20 | NUR ---
SHIFT SUMMARY PATIENT ON INSULIN GTT; INCREAED TO 10UNITS/HR. CBG OVER 600 AT THIS TIME. PG PLACED DURING SHIFT AND LR STARTED AT 150ML/HR. NO CHANGES TO ASSESSMENT FROM ARRIVAL TO ICU; A&O X 4, FOLLOWS COMMANDS, STAND AND PIVOT TRANSFER. SR TO ST WITH RATE 90'S-100'S, STRONG EDWIN RADIAL PULSES/FAINT EDWIN PEDAL PULSES. LUNG SOUNDS CLEAR T/O, 4LPM VIA OXIMIZER WITH SPO2 LOW 90'S, GOAL TO KEEP SPO2 GREATER THAN 92%. HYPERACTIVE BT X 4, NAUSEA IMPROVING. SKIN HAS SCATTERED BRUISING, DRY FLAKING ON EDWIN FEET, OLD SURGICAL SCAR ON LOW BACK. NO OTHER MAJOR CHANGES DURING SHIFT.
[2021-06-19 06:34] LABS: Glucose, Blood 567 mg/dL (70-99)
--- NOTE | 2021-06-19 07:18 | NUR ---
ASSUME CARE: I assumed care of pt at 0700 after receiving report from scene shifter RN.
[2021-06-19 07:42] LABS: Glucose, Blood 554 mg/dL (70-99)
[2021-06-19 08:15] LABS: Glucose, Blood 533 mg/dL (70-99)
[2021-06-19 09:15] LABS: Glucose, Blood 493 mg/dL (70-99)
[2021-06-19 13:17] LABS: Adenovirus F 40/41 Not Detected (NOT DETECT); Astrovirus Not Detected (NOT DETECT); Campylobacter Sp Not Detected (NOT DETECT); Cryptosporidium Not Detected (NOT DETECT); Cyclospora Cayetanensis Not Detected (NOT DETECT); E. Coli O157 Not Detected (NOT DETECT); Entamoeba Histolytica Not Detected (NOT DETECT); Enteroaggregative E. coli-EAEC Not Detected (NOT DETECT); Enteropathogenic E. coli-EPEC Not Detected (NOT DETECT); Enterotoxigenic E. coli-ETEC Not Detected (NOT DETECT); Giardia Lamblia Not Detected (NOT DETECT); Norovirus GI/GII Not Detected (NOT DETECT); Plesiomonas Shigelloides Not Detected (NOT DETECT); Rotavirus A Not Detected (NOT DETECT); Salmonella Sp Not Detected (NOT DETECT); Sapovirus Not Detected (NOT DETECT); Shiga Toxin-prod E. coli-STEC Not Detected (NOT DETECT); Shigella/Enteroin E. coli-EIEC Not Detected (NOT DETECT); Vibrio Cholerae Not Detected (NOT DETECT); Vibrio Sp Not Detected (NOT DETECT); Yersinia Enterocolitica Not Detected (NOT DETECT)
--- NOTE | 2021-06-19 18:08 | NUR ---
SHIFT SUMMARY: Insulin at 12; pt currently eating dinner per orders. Pt is incontinent of urine. She states this is due to a childhood back injury. She has also had several liquid stools today. Attends changed as needed. Stool sample sent. Redness developing in piyush area; baby powder applied liberally and pt encouraged to turn Q2 hrs. PRN hydralazine given for elevated systolic. Pt continues on 4L oxymizer. Left hand tremor from prior right sided CVA.
--- NOTE | 2021-06-19 21:41 | NUR ---
ASSUMED CARE RECEIVED REPORT FROM PENELOPE RUSSELL AT 1900. PT IS ALERT AND ORIENTED X4, ABLE TO FOLLOW COMMANDS, ANSWERS QUESTIONS AND EXPRESSES NEEDS APPROPRIATELY. SHE IS ABLE TO ASSIST WITH ATTENDS CHANGES AND TURNS. 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 SHE IS CURRENTLY ON 4L VIA OXYMIZER, AND SPO2 >92%. LUNGS ARE CLEAR IN UPPERS, AND DIMINISHED IN BASES. HR IS SINUS TACH WITH RATE IN 100-110'S, BP HYPERTENSIVE WITH SBP IN 140'S. PRN HYDRALAZINE AVAILABLE. SHE REPORT INCONTINENCE OF URINE THAT SHE HAS HAD SINCE SHE WAS A CHILD R/T BACK INJURY. SHE IS INCONTINENT OF SMALL AMOUNTS OF LIQUID STOOL THAT OCCURS WITH COUGHING. SKIN IN HER MAC AREA AND ABDOMINAL PANNUS IS REDDENED AND THERE IS SOME EXCORIATIONS IN HER VAGINAL FOLDS AND BETWEEN HER BUTTOCKS. POWDER APPLIED. INSULIN GTT IS CURRENTLY AT 14UNITS/HR, WITH GOAL CBG'S IN 100'S. 90 UNITS OF LA INSULIN GIVEN PER EMAR. ORDERS REVIEWED AND WILL TREAT PRESCRIBED.
[2021-06-20 04:53] LABS: BASOPHILS ABSOLUTE AUTO 0.01 K/mm3 (0.00-0.23); BASOPHILS PERCENT AUTO 0 % (0-2); EOSINOPHILS PERCENT AUTO 0 % (0-6); Hematocrit 37.4 % (33.0-51.0); Hemoglobin 12.2 g/dL (11.5-16.0); IMMATURE GRAN ABSOLUTE AUTO 0.03 K/mm3 (0.00-0.10); IMMATURE GRAN PERCENT AUTO 0 % (0-1); LYMPHOCYTES ABSOLUTE AUTO 1.12 K/mm3 (0.84-5.20); LYMPHOCYTES PERCENT AUTO 12 % (21-46); MONOCYTES ABSOLUTE AUTO 0.27 K/mm3 (0.16-1.47); MONOCYTES PERCENT AUTO 3 % (4-13); Mean Corpuscular HGB 27.6 pg (26.0-34.0); Mean Corpuscular HGB Conc 32.6 g/dL (31.5-36.5); Mean Corpuscular Volume 85 fL (80-100); NEUTROPHILS ABSOLUTE AUTO 8.27 K/mm3 (1.96-9.15); NEUTROPHILS PERCENT AUTO 85 % (41-73); Platelet Count 193 K/mm3 (150-400); RDW Coefficient Variation 15.1 % (11.7-14.2); RDW Standard Deviation 46.4 fL (35.1-46.3); Red Blood Cell Count 4.42 M/mm3 (3.80-5.20)
[2021-06-20 05:55] LABS: Ferritin, Serum 337 ng/mL (8-252); Lactate Dehydrogenase (Ld),Bld 216 U/L (100-240); Magnesium, Blood 2.2 mg/dL (1.6-2.4)
[2021-06-20 06:06] LABS: Alanine Aminotransfer (ALT/SGP 158 U/L (12-78); Albumin, Blood 2.3 g/dL (3.4-5.0); Albumin/Globulin Ratio 0.5 (0.8-1.8); Alk Phos 77 U/L (50-136); Anion Gap 7 mmol/L (6-16); Aspartate Aminotrans (AST/SGOT 52 U/L (12-37); Bilirubin, Total 0.3 mg/dL (0.1-1.0); Blood Urea Nitrogen 20 mg/dL (8-24); Bun/Creatinine Ratio 31.3 (12.0-20.0); CO2, Blood 22 mmol/L (21-32); Chloride, Blood 110 mmol/L (98-108); Creatinine, Blood 0.64 mg/dL (0.40-1.00); Globulin, Blood 4.4 g/dL (2.2-4.0); Glomerular Filtration Rate >60 (60-); Glucose, Blood 225 mg/dL (70-99); Phosphorus, Blood 2.7 mg/dL (2.5-4.9); Sodium, Blood 139 mmol/L (136-145); Total Protein, Blood 6.7 g/dL (6.4-8.2)
--- NOTE | 2021-06-20 06:16 | NUR ---
SHIFT SUMMARY PT REMAINS ON INSULIN GTT AT 14 UNITS/HR, CBG'S ARE REMAINING IN 200'S. LR CONTINUES AT 150ML/HR. SHE REMAINED A/O X4, ABLE TO COMMUNICATE NEEDS WELL. HR REMAINED SINUS TACH, WITH OCCASIONAL RATE IN THE 90'S WHILE SLEEPING. 20MG PRN HYDRALAZINE GIVEN X1 FOR SBP IN 160'S, MINIMAL RESPONSE. LUNGS ARE CLEAR AND DIMINISHED, 4L OXYMIZER REMAINS ON, SPO2 92%, RR IN 30'S. SKIN IN MAC AREA IS STARTING TO BECOME VERY EXCORIATED AND RED. BARRIER CREAM APPLIED. PG IN RACIEL REMAINS INFUSING, PERIPHERAL IV IN R FOREARM REMOVED D/T LEAKING. WILL REPORT TO ONCOMING SHIFT WHEN AVAILABLE.
--- NOTE | 2021-06-20 07:39 | NUR ---
ASSUMED CARE OF PATIENT: PT RESTING IN BED PRONE, VSS SOME HTN 140S, LUNGS CLEAR/DIM ON 4L OXIMIZER, CBG 258 ON 15UNITS/HR, WILL CONTINUE TO MONITOR CBG HOURLY, L5 150ML/HR.
--- NOTE | 2021-06-20 17:31 | NUR ---
AOX4, COMPLAINS OF GENERALIZED BODY PAIN 10/10, GIVEN 650 TYLENOL WITH MINIMAL REPORTED HELP, NONVERBAL INDICATORS OF PAIN 0, INSULIN GTT DC AT 1730, NOC LANTUS GIVEN 1730, HOLD INSULIN GTT, ALONG WITH GIVING MEDIUM SLIDING SCALE INSULIN, FOOD TRAY PER MD ISTRATE, 4 HOURS OF CBG CHECKS, IF LESS THAN 300 DC INSULIN GTT, ST 100S, BP HTN 130-150S, LISINOPRIL 2.5MG ORDER PLACED, +2 PULSES, +2 BLE EDEMA, LUNGS CLEAR DIM, UP TO 6L OXIMIZER, RR INCREASED, 50RR ALARM ALLOWED PER MD, ABDOMEN OBESE ROUNDED AUDIBLE BOWELS, BOURNE PLACED FOR SKIN INTEGRITY/URINE INCONTINENECE, POWDER TO GROIN/PANNUS EXCORTIATION/MOISTURE DAMAGE.
--- NOTE | 2021-06-21 | NUR ---
CALL TO DR. LEWIS RE: PT'S ONGOING AND INCREASINGLY WORSE COUGH. SHE HAS BEEN COUGHING FORCFULLY, TO THE POINT OF VOMITING. ORDERS FOR PROMETHAZINE/CODEINE COUGH SYRUP GIVEN. ALSO MENTIONED PT'S CBG'S IN THE [address] LEWIS UPDATED PT'S INSULIN ORDERS PER EMAR. CALL TO DR. FLANNERY RE: ONGOING COUGHING, DESPITE GIVING THE PROMETHAZINE/CODEINE COUGH SYRUP. ORDERS GIVEN FOR ATIVAN 0.5-2MG Q4H PRN.
[2021-06-21 03:31] LABS: BASOPHILS ABSOLUTE AUTO 0.01 K/mm3 (0.00-0.23); BASOPHILS PERCENT AUTO 0 % (0-2); EOSINOPHILS PERCENT AUTO 0 % (0-6); Hematocrit 37.1 % (33.0-51.0); Hemoglobin 12.2 g/dL (11.5-16.0); IMMATURE GRAN ABSOLUTE AUTO 0.04 K/mm3 (0.00-0.10); IMMATURE GRAN PERCENT AUTO 0 % (0-1); LYMPHOCYTES ABSOLUTE AUTO 1.02 K/mm3 (0.84-5.20); LYMPHOCYTES PERCENT AUTO 9 % (21-46); MONOCYTES PERCENT AUTO 3 % (4-13); Mean Corpuscular HGB 27.8 pg (26.0-34.0); Mean Corpuscular HGB Conc 32.9 g/dL (31.5-36.5); Mean Corpuscular Volume 85 fL (80-100); Mean Platelet Volume 10.5 fL (9.1-12.4); NEUTROPHILS ABSOLUTE AUTO 9.74 K/mm3 (1.96-9.15); NEUTROPHILS PERCENT AUTO 88 % (41-73); Platelet Count 215 K/mm3 (150-400); RDW Coefficient Variation 15.7 % (11.7-14.2); RDW Standard Deviation 49.1 fL (35.1-46.3); Red Blood Cell Count 4.39 M/mm3 (3.80-5.20); White Blood Cell Count 11.11 K/mm3 (4.00-11.30)
[2021-06-21 03:52] LABS: Magnesium, Blood 2.1 mg/dL (1.6-2.4)
[2021-06-21 03:53] LABS: Alanine Aminotransfer (ALT/SGP 126 U/L (12-78); Albumin, Blood 2.3 g/dL (3.4-5.0); Albumin/Globulin Ratio 0.5 (0.8-1.8); Alk Phos 82 U/L (50-136); Anion Gap 8 mmol/L (6-16); Aspartate Aminotrans (AST/SGOT 42 U/L (12-37); Bilirubin, Total 0.3 mg/dL (0.1-1.0); Blood Urea Nitrogen 21 mg/dL (8-24); Bun/Creatinine Ratio 33.3 (12.0-20.0); CO2, Blood 24 mmol/L (21-32); Calcium, Blood 7.7 mg/dL (8.5-10.1); Chloride, Blood 106 mmol/L (98-108); Creatinine, Blood 0.63 mg/dL (0.40-1.00); Globulin, Blood 4.4 g/dL (2.2-4.0); Glomerular Filtration Rate >60 (60-); Glucose, Blood 361 mg/dL (70-99); Phosphorus, Blood 3.2 mg/dL (2.5-4.9); Potassium, Blood 4.1 mmol/L (3.5-5.5); Sodium, Blood 138 mmol/L (136-145); Total Protein, Blood 6.7 g/dL (6.4-8.2)
--- NOTE | 2021-06-21 06:03 | NUR ---
SHIFT SUMMARY PT STARTED SHIFT ALERT AND ORIENTED X4, ABLE TO COMMUNICATE NEEDS WELL AND FOLLOWED COMMANDS. SHE IS ABLE TO REPOSITION SELF IN BED FREQUENTLY AND INDEPENDENTLY. SHE REMAINS ON THE OXYMIZER AT 9L AND HAD INCREASINGLY HARSH COUGH, SO MUCH TO WHERE SHE WOULD VOMIT D/T COUGHING. ORDERS FOR PROMETHAZINE/CODEINE COUGH SYRUP GIVEN AND PT SHOWED MINIMAL RESPONSE TO MEDICATION. AFTER RECEIVING ORDERS FOR ATIVAN, PT RESPONDED POORLY AND BECAME INCREASINGLY CONFUSED. SHE WOULD PULL ALL MONITOR LEADS OFF AND OXYMIZER OFF. WHEN REPLACING LEADS, SHE WOULD REORIENT AND DIDN'T REMEMBER BEING CONFUSED. DURING THIS TIME, BP WAS HYPERTENSIVE, HR TACHY IN 120-130'S, RR IN 40-50'S, AND SPO2 WOULD DESAT TO MID 80'S. AFTER MULTIPLE ATTEMPTS OF REPOSITIONING/REORIENTING AND REPLACING LEADS, AND PROMETHAZINE/CODEINE GIVEN AGAIN, PT FINALLY SLEEPING. BP STILL REMAINS HYPERTENSIVE, SBP IN 150'S. HR ST IN 10'S, SPO2 91%, RR IN 30'S. SHE HAD MULTIPLE LINEN CHANGES T/O SHIFT D/T LEAKING OF CATHETER AND MENSES. PG IN RACIEL OCCLUDES FREQUENTLY D/T POSITION, BUT ABLE TO DRAW LABS WELL. WILL REPORT TO ONCOMING SHIFT.
--- NOTE | 2021-06-21 09:30 | NUR ---
ASSUMED CARE OF PATIENT: AOX4, ANXIOUS PULLING AT OXIMIZER, OXIMIZER UP TO 12 LPM, HARSH COUGH INTERUPTING OXIMIZER FLOW, CODEINE/PHENERGEN GIVEN FOR COUGH, DESATS FREQUENTLY, LUNGS COARSE THROUGHOUT, RR INCREASED 40S SHALLOW RAPID, RT AND MD CONSULTED, AIRVO INITIATED 50L/75% SATS 93%, DEX GTT INITIATED CURRENTLY 0.4, LASIX 20MG GIVEN, ST 100S, +2 PULSES, BP HTN 150S, ASKED PATIENT IF SHE WANTED TO LIVE SHE NEEDS TO LISTEN TO NURSES/DOCTORS REGARDING OXYGEN NEEDS AND TO STOP PULLING OFF OXYGEN AND IT COULD CAUSE HER TO CODE, PATIENT RESPONDED "I JUST WANT TO EAT." WILL CONTINUE TO MONITOR THROUGH SHIFT.
--- NOTE | 2021-06-21 18:20 | NUR ---
AOX4, INCREASINGLY AGITATED/ANXIOUS THIS AM REQUIRING DEX GTT, CURRENTLY AT 0.4, REQUIRED AIRVO INITIATION CURRENTLY 50L/60% LUNGS COARSE W/ SOME EXP WHEEZE HILARY, HARSH COUGH, RR INCREASED SHALLOW AND RAPID 40S, NSR 80S ON DEX OTHERWISE ST 100S, +2 PULSES, +2 BLE EDEMA, BOURNE OUTPUT ADEQUATE WITH LASIX, CBGS CONTINUE TO BE 300S, HIGH CORRECTION SLIDING SCALE INITIATED, NEW 18G IV RFA, WILL CONTINUE TO MONITOR AND REPORT TO NIGHT RN.
--- NOTE | 2021-06-21 19:41 | NUR ---
Assumed care. Report received from jose NEGRETE. Pt resting in bed, on AIRVO 50 L/min, 59%. Pt has PICC in RACIEL, IV access in R/ac and R/forearm. IV pumps running prececdex 0.4 mcg/kg/hr, NS 10 ml/hr. Vidal catheter in place. VS stable, no acute needs noted at this time. Will continue to monitor.
[2021-06-22 04:06] LABS: BASOPHILS ABSOLUTE AUTO 0.01 K/mm3 (0.00-0.23); BASOPHILS PERCENT AUTO 0 % (0-2); EOSINOPHILS PERCENT AUTO 0 % (0-6); Hematocrit 36.7 % (33.0-51.0); IMMATURE GRAN ABSOLUTE AUTO 0.03 K/mm3 (0.00-0.10); IMMATURE GRAN PERCENT AUTO 1 % (0-1); LYMPHOCYTES ABSOLUTE AUTO 1.16 K/mm3 (0.84-5.20); LYMPHOCYTES PERCENT AUTO 22 % (21-46); MONOCYTES ABSOLUTE AUTO 0.15 K/mm3 (0.16-1.47); MONOCYTES PERCENT AUTO 3 % (4-13); Mean Corpuscular HGB 27.5 pg (26.0-34.0); Mean Corpuscular HGB Conc 32.7 g/dL (31.5-36.5); Mean Corpuscular Volume 84 fL (80-100); Mean Platelet Volume 10.7 fL (9.1-12.4); NEUTROPHILS ABSOLUTE AUTO 3.84 K/mm3 (1.96-9.15); NEUTROPHILS PERCENT AUTO 74 % (41-73); Platelet Count 196 K/mm3 (150-400); RDW Coefficient Variation 15.9 % (11.7-14.2); RDW Standard Deviation 49.2 fL (35.1-46.3); Red Blood Cell Count 4.36 M/mm3 (3.80-5.20); White Blood Cell Count 5.19 K/mm3 (4.00-11.30)
[2021-06-22 04:20] LABS: International Normalized Ratio 1.04; Prothrombin Time Results 10.9 Sec (9.7-11.5)
[2021-06-22 04:37] LABS: Alanine Aminotransfer (ALT/SGP 112 U/L (12-78); Albumin, Blood 2.5 g/dL (3.4-5.0); Albumin/Globulin Ratio 0.6 (0.8-1.8); Alk Phos 81 U/L (50-136); Anion Gap 10 mmol/L (6-16); Aspartate Aminotrans (AST/SGOT 47 U/L (12-37); Bilirubin, Total 0.3 mg/dL (0.1-1.0); Blood Urea Nitrogen 26 mg/dL (8-24); Bun/Creatinine Ratio 36.4 (12.0-20.0); CO2, Blood 22 mmol/L (21-32); Calcium, Blood 7.9 mg/dL (8.5-10.1); Chloride, Blood 105 mmol/L (98-108); Creatinine, Blood 0.72 mg/dL (0.40-1.00); Ferritin, Serum 215 ng/mL (8-252); Globulin, Blood 4.2 g/dL (2.2-4.0); Glomerular Filtration Rate >60 (60-); Glucose, Blood 304 mg/dL (70-99); Lactate Dehydrogenase (Ld),Bld 244 U/L (100-240); Magnesium, Blood 2.1 mg/dL (1.6-2.4); Phosphorus, Blood 3.8 mg/dL (2.5-4.9); Sodium, Blood 137 mmol/L (136-145); Total Protein, Blood 6.7 g/dL (6.4-8.2)
--- NOTE | 2021-06-22 06:30 | NUR ---
Shift summary. Pt continues in bed, on AIRVO, setting unchanged this shift. PG in RACIEL dressing changed, caps replaced. IV in R/ac, R/forearm WNL, IV pumps running precedex 0.4 mcg/kg/hr, NS 10 ml/hr. Vidal catheter in place, 1500 mls out this shift. Pt alert and oriented throughout shift, VS stable. See shift assessment for further details. Will continue to monitor and report off to dayshift RN.
--- NOTE | 2021-06-22 08:00 | NUR ---
PT RESTS QUIETLY WHEN NOT DISTURBED ON PRECEDEX @0.4 MCG/KG/MIN. PT AWAKENS TO VOICE AND IS ORIENTED TO PERSON, PLACE, AND SURROUNDINGS. PT KNEW IT WAS MAY, BUT UNABLE TO RECALL THE DATE AND YEAR. PT IS GENERALLY WEAK L>R FROM OLD CVA. PT SLOW TO RESPOND AT TIMES, BUT ABLE TO COMMUNICATE NEEDS WELL. PT DENIES PAIN. AFEBRILE. ECG SHOWS SR. SBP TRENDING 140-150'S. LOWER EXTREMITIES WITH 2+ EDEMA-PT PULSES FAINT. HEALS FLOATED. LUNGS DIMINISHED T/O. RR 32-40. OCCASIONAL HARSH, NON-PRODUCTIVE COUGH. PT REQUESTED "COUGH MEDICINE" REQUEST GRANTED-SEE EMAR. SATS>90% ON AIRVO 50 LITERS/FIO2 60%. PT DENIES NAUSEA-ABDOMEN OBESE. SKIN WITH SCATTERED BRUISES TO ABDOMEN. SKIN FOLDS SLIGHTLY RED AND EXCORIATED. PT STARTED HER MENSES. MAC CARE COMPLETED AND MAC PAD PLACED. BOURNE WITH MODERATE AMOUNT OF CLOUDY, YELLOW URINE-ROUTINE AM LASIX GIVEN-SEE EMAR.
--- NOTE | 2021-06-22 12:00 | NUR ---
PT SLEEPS MAINLY WHEN NOT DISTURBED. AWAKENS EASILY AND NO NOTED ANXIETY ON PRECEDEX @ 0.4 MCG/KG/MIN. PT DENIES PAIN. PT ABLE TO POSITION HERSELF IN BED. EXERTIONAL DYSPNEA NOTED, BUT PT MAINTAINS SATS 88-92% ON AIRVO 50 LITERS/ FIO2 60% CBG 411 COVERED PER SLIDING SCALE AND PER SCHEDULED-SEE EMAR.
[2021-06-23 03:52] LABS: BASOPHILS ABSOLUTE AUTO 0.01 K/mm3 (0.00-0.23); BASOPHILS PERCENT AUTO 0 % (0-2); EOSINOPHILS PERCENT AUTO 0 % (0-6); Hematocrit 38.5 % (33.0-51.0); Hemoglobin 12.4 g/dL (11.5-16.0); IMMATURE GRAN ABSOLUTE AUTO 0.07 K/mm3 (0.00-0.10); IMMATURE GRAN PERCENT AUTO 1 % (0-1); LYMPHOCYTES ABSOLUTE AUTO 1.24 K/mm3 (0.84-5.20); LYMPHOCYTES PERCENT AUTO 20 % (21-46); MONOCYTES ABSOLUTE AUTO 0.19 K/mm3 (0.16-1.47); MONOCYTES PERCENT AUTO 3 % (4-13); Mean Corpuscular HGB 27.4 pg (26.0-34.0); Mean Corpuscular HGB Conc 32.2 g/dL (31.5-36.5); Mean Corpuscular Volume 85 fL (80-100); Mean Platelet Volume 10.4 fL (9.1-12.4); NEUTROPHILS ABSOLUTE AUTO 4.59 K/mm3 (1.96-9.15); NEUTROPHILS PERCENT AUTO 75 % (41-73); Platelet Count 193 K/mm3 (150-400); RDW Coefficient Variation 15.3 % (11.7-14.2); RDW Standard Deviation 47.9 fL (35.1-46.3); Red Blood Cell Count 4.52 M/mm3 (3.80-5.20)
[2021-06-23 04:14] LABS: Alanine Aminotransfer (ALT/SGP 132 U/L (12-78); Albumin, Blood 2.4 g/dL (3.4-5.0); Albumin/Globulin Ratio 0.6 (0.8-1.8); Alk Phos 81 U/L (50-136); Anion Gap 8 mmol/L (6-16); Aspartate Aminotrans (AST/SGOT 92 U/L (12-37); Bilirubin, Total 0.3 mg/dL (0.1-1.0); Blood Urea Nitrogen 26 mg/dL (8-24); Bun/Creatinine Ratio 40.9 (12.0-20.0); C-REACTIVE PROTEIN, EXT RANGE 0.699 mg/dL (0.000-0.300); CO2, Blood 23 mmol/L (21-32); Calcium, Blood 7.7 mg/dL (8.5-10.1); Chloride, Blood 108 mmol/L (98-108); Creatinine, Blood 0.64 mg/dL (0.40-1.00); Globulin, Blood 4.1 g/dL (2.2-4.0); Glomerular Filtration Rate >60 (60-); Glucose, Blood 195 mg/dL (70-99); Phosphorus, Blood 3.6 mg/dL (2.5-4.9); Potassium, Blood 3.8 mmol/L (3.5-5.5); Sodium, Blood 139 mmol/L (136-145); Total Protein, Blood 6.5 g/dL (6.4-8.2)
--- NOTE | 2021-06-23 06:13 | NUR ---
SHIFT SUMMARY: PATIENT WAS A/O AND PLEASANT MOST OF SHIFT. SO MUCH SO THAT I DIDN'T SEE THE NEED TO KEEP INFUSING PRECEDEX. IT WAS WEANED OFF AROUND 0200. WHILE ON BREAK SHE STARTED YELLING OUT, DESATING, AND WAS "AIR HUNGRY." MORPHINE WAS GIVEN AND PRECEDEX WAS RESTARTED. IT TOOK HER A WHILE TO CALM DOWN AND SHE ALSO RECEIVED A DOSE OF ATIVAN. SHE HAS REMAINED ON AIRVO 80% 50L WITH NO ADJUSTMENTS SINCE DAY SHIFT. SHE COUGHS FREQUENTLY AND CODEINE GIVEN X2 TONIGHT. BATH GIVEN PER PATIENT REQUEST. SKIN LOOKS GOOD SHE CAN MOVE HERSELF WELL AROUND IN BED. GREAT URINE OUTPUT. OVERALL, SHE IS NOT CONNECTING THE DOTS THAT SHE WILL NOT BE LEAVING SOON. SHE HAS ASKED TWICE IF SHE CAN LEAVE AFTER SHE TALKS WITH THE DOCTORS TODAY.
--- NOTE | 2021-06-23 09:00 | NUR ---
SHIFT ASSESSMENT PATIENT ALERT AND ORIENTED X 4, SLOW TO RESPOND. PATIENT CALM, COOPERATIVE. FLAT AFFECT NOTED. PATIENT ANXIOUS AT TIMES. SLIGHT L DEFICIT NOTED; HISTORY OF R CVA. PATIENT AFEBRILE. PATIENT WEAK BUT ABLE TO MOVE ALL EXTREMITIES AND ASSIST WITH REPOSITIONING. PATIENT STATES SHE HAS PAIN IN HER CHEST FROM COUGHING. PATIENT ON AIRVO AT 50 L AND 70% FIO2. PATIENT STATES SHE HAS DRY COUGH. R LUNG LOBES DIMINISHED. CRACKLES NOTED IN L LUNG LOBES. PATIENT IN SR WITH OCCASIONAL PVCS. HR 60S TO 70S. SBP 140S TO 170S. EDEMA NOTED TO BLES. ABDOMEN MODERATELY DISTENDED, SOFT, NORMOACTIVE BOWEL SOUNDS NOTED. LAST BM DOCUMENTED ON 06/21. BOURNE IN PLACE DRAINING YELLOW COLORED URINE. PATIENT RECEIVING SCHEDULED LASIX. PATIENT MENSTRATING. SCATTERED BRUISING NOTED. MAC/ GROIN/ PANNUS FOLDS REDDENED. EXCORATION NOTED TO LABIA MAJORA. PRECEDEX INFUSING AT 0.5 MCG/ KG/ HOUR AND NS TKO. BLOOD SUGAR 204 THIS AM; COVERAGE GIVEN. BED LOW, CALL LIGHT IN REACH. WILL CONTINUE TO MONITOR PATIENT FREQUENTLY THROUGHOUT SHIFT.
--- NOTE | 2021-06-23 11:31 | NUR ---
DR. MONTEMAYOR UPDATED ON PATIENT STATUS. INFORMED THAT CALCIUM 7.7 AND AST AND ALT INCREASED ON AM LABS. INFORMED THAT SBP 140S TO 170S AND THAT PATIENT HAS HX OF R CVA. INFORMED THAT PATIENT ON AIRVO AT 50 L AND 70% FIO2 THIS AM. INFORMED THAT MAC/ GROIN AND PANNUS FOLDS REDDENED AND MOIST. ORDERS RECEIVED.
--- NOTE | 2021-06-23 12:25 | NUR ---
PATIENT AFEBRILE. PRECEDEX AT 0.4 MCG/ KG/ HOUR. HR IN THE 60S. SBP IN THE 170S. LISINOPRIL DOSE INCREASED AND GIVEN. BLOOD SUGAR 276; COVERAGE GIVEN. NO OTHER ACUTE CHANGES TO NOTE ON AT THIS TIME. WILL CONTINUE TO MONITOR.
--- NOTE | 2021-06-23 17:20 | NUR ---
PATIENT AFEBRILE. HR 60S TO 70S. SBP 150S TO 160S. PRN VASOTEC ADDED TO EMAR AND GIVEN TO PATIENT. NO OTHER ACUTE CHANGES TO NOTE ON AT THIS TIME. WILL CONTINUE TO MONITOR.
--- NOTE | 2021-06-23 18:43 | NUR ---
SHIFT SUMMARY PATIENT REMAINED ALERT AND ORIENTED, AFEBRILE. ANXIETY WELL CONTROLLED THIS SHIFT. PRECEDEX DECRESED FROM 0.5 TO 0.3 MCG/ KG/ HOUR. PATIENT REMAINED ABLE TO REPOSITION SELF IN BED WITH REMINDERS AND HELP REPOSITIONING PILLOWS. AIRVO DECREASED FROM 50 L AND 80% FIO2 THIS AM TO 50 L AND 70% FIO2. PATIENT HAS CONTINUED TO HAVE DRY COUGH. PATIENT REQUESTED COUGH MEDICINE SEVERAL TIMES THIS SHIFT. PATIENT REMAINED IN SR WITH OCCASIONAL PVCS. HR 60S TO 70S. SBP LOW 100S TO 180S. SCHEDULED LISINOPRIL INCREASED THIS SHIFT, PRN VASOTEC ORDERED THIS SHIFT. PRN VASOTEC GIVEN ONCE AND HYDRALAZINE GIVEN TWICE THIS SHIFT. NO BM THIS SHIFT. PATIENT HAD GOOD APPETITE. BOURNE DRAINED 2850 MLS OF YELLOW COLORED URINE. PATIENT RECEIVED SCHEDULED LASIX X 2. NO CHANGES TO SKIN NOTED. NYSTATIN ORDERED FOR MOIST AND RED SKIN FOLDS. NS REMAINS TKO. PATIENT HAD COMPLETE BED BATH THIS SHIFT. BLOOD SUGARS RANGED FROM 204 TO 276; COVERAGE GIVEN AT EACH CHECK. PATIENT HAS NO COMPLAINTS AT THIS TIME. BED LOW, CALL LIGHT IN REACH. REPORT WILL BE GIVEN TO ASSUMING PUBLIC AFFAIRS SPECIALIST NURSE SHORTLY.
--- NOTE | 2021-06-23 19:42 | NUR ---
PATIENT RESTING QUIETLY WATCHING TV A&O X3. SOB WITH SLIGHT ACTIVITY AND WITH CONVERSATION. AIRVO 50 L/ FIO2 70% IN PLACE. NONPRODUCTIVE COUGH. ABLE TO REPOSITION SELF WITH ASSISTANCE WITH PILLOWS. PATIENT ASKING FOR SOMETHING TO HELP HER SLEEP. PATIENT VERBALIZED FEELING ANXIOUS AND RESTLESS. PRECEDEX 0.3MCG CONTINUES, WITH ATIVAN PRN.
--- NOTE | 2021-06-23 21:42 | NUR ---
PATIENT ABLE TO BRUSH HER TEETH WITH SUCTION TOOTHBRUSH. ABLE TO ASSIST WITH MAC AND BOURNE CARE BY HOLDING UP PANUS. PATIENT PAINFUL AND RED UNDER PANUS, MEDICATED POWDER PLACED IN FOLDS AND PILLOW CASE PLACED TO HELP KEEP AREA DRY AND WITH AIRFLOW TO AREA.
[2021-06-24 05:21] LABS: BASOPHILS ABSOLUTE AUTO 0.01 K/mm3 (0.00-0.23); BASOPHILS PERCENT AUTO 0 % (0-2); EOSINOPHILS PERCENT AUTO 0 % (0-6); Hematocrit 38.4 % (33.0-51.0); Hemoglobin 12.7 g/dL (11.5-16.0); IMMATURE GRAN PERCENT AUTO 1 % (0-1); LYMPHOCYTES ABSOLUTE AUTO 1.28 K/mm3 (0.84-5.20); LYMPHOCYTES PERCENT AUTO 16 % (21-46); MONOCYTES ABSOLUTE AUTO 0.32 K/mm3 (0.16-1.47); MONOCYTES PERCENT AUTO 4 % (4-13); Mean Corpuscular HGB 27.6 pg (26.0-34.0); Mean Corpuscular HGB Conc 33.1 g/dL (31.5-36.5); Mean Corpuscular Volume 84 fL (80-100); NEUTROPHILS PERCENT AUTO 78 % (41-73); Platelet Count 203 K/mm3 (150-400); RDW Coefficient Variation 15.2 % (11.7-14.2); RDW Standard Deviation 46.3 fL (35.1-46.3); White Blood Cell Count 7.91 K/mm3 (4.00-11.30)
[2021-06-24 05:45] LABS: Alanine Aminotransfer (ALT/SGP 162 U/L (12-78); Albumin, Blood 2.4 g/dL (3.4-5.0); Albumin/Globulin Ratio 0.6 (0.8-1.8); Alk Phos 83 U/L (50-136); Anion Gap 7 mmol/L (6-16); Aspartate Aminotrans (AST/SGOT 103 U/L (12-37); Bilirubin, Total 0.4 mg/dL (0.1-1.0); Blood Urea Nitrogen 25 mg/dL (8-24); Bun/Creatinine Ratio 38.3 (12.0-20.0); C-REACTIVE PROTEIN, EXT RANGE 0.293 mg/dL (0.000-0.300); CO2, Blood 25 mmol/L (21-32); Calcium, Blood 7.9 mg/dL (8.5-10.1); Chloride, Blood 106 mmol/L (98-108); Creatinine, Blood 0.65 mg/dL (0.40-1.00); Glomerular Filtration Rate >60 (60-); Glucose, Blood 157 mg/dL (70-99); Magnesium, Blood 2.4 mg/dL (1.6-2.4); Phosphorus, Blood 3.9 mg/dL (2.5-4.9); Sodium, Blood 138 mmol/L (136-145); Total Protein, Blood 6.4 g/dL (6.4-8.2)
--- NOTE | 2021-06-24 06:12 | NUR ---
SUMMARY PATIENT SLEEPING OFF AND ON T/O NIGHT. ASSISTING WITH REPOSITIONING IN BED, CONTINUES TO BECOME SOB WITH SLIGHT ACTIVITY. AIRVO 50L FIO2 60% REMAINS IN PLACE. PATIENT REQUESTING MEDICATIONS FOR SLEEP, PRECEDEX TITRATED DOWN TO 0.2MCG. ATIVAN IV GIVEN ONCE TO HELP PATIENT RELAX AND SLEEP. PATIENT CONTINUES TO HAVE LIGHT MENSTRUAL FLOW.
--- NOTE | 2021-06-24 07:07 | NUR ---
PATIENT CALLED VERBALIZING THAT HER BOURNE FEELS IF IT IS LEAKING, BOURNE FOUND LAYING IN BED WITH BALLOON FULLY INFLATED. REPLACED WITH 16F BOURNE DRAINING CLEAR YELLOW URINE.
--- NOTE | 2021-06-24 08:30 | NUR ---
SHIFT ASSESSMENT PATIENT ALERT AND ORIENTED X4. FOLLOWS COMMANDS. DYSPNEA NOTED WITH RESONSES. AIRVO AT 50L AND 60% FIO2. SATS >95%. AFEBRILE. SBP 160S-170S. HR 70S-80S. LUNG SOUNDS DIMINISHED IN ALL LOBES. NO ADVENTITIOUS SOUNDS NOTED. BOURNE INTACT AND DRAINING YELLOW URINE WITH SEDIMENT. PATIENT FEEDING SELF FOR MEALS AND ABLE TO PULL SELF UP IN BED. REDNESS NOTED IN SKIN FOLDS; POWDER APPLIED. SR NOTED ON TELEMETRY. GENERALIZED WEAKNESS IN EXTREMETIES. LEFT HAND TREMOR NOTED. PATIENT STATES TREMOR IS DUE TO HX OF CVA. NO OTHER DEFICITS NOTED. PRECEDEX RUNNING AT 0.1 MCG/KG/HR. NS RUNNING AT 10 MLS/HR. PATIENT IS MENSTRUATING; PAD IN PLACE. NO REPORTS OF PAIN AT THIS TIME. RAILS UP AND CALL LIGHT IN REACH. WILL CONTINUE TO MONITOR.
[2021-06-24] MEDS ORDERED: FERSU300 PO (11:24)
[2021-06-24] MEDS ORDERED: [UNRECOGNIZED DRUG - CODE] PO (11:24)
[2021-06-24] MEDS ORDERED: ALBU90OI INH (11:26)
[2021-06-24] MEDS ORDERED: FLUT1DIS5 INH (11:28)
[2021-06-24] MEDS ORDERED: ALOGLIPTIN25 M1 PO (11:28)
[2021-06-24] MEDS ORDERED: HYDRA25 PO (11:31)
[2021-06-24] MEDS ORDERED: METO25 PO (11:34)
[2021-06-24] MEDS ORDERED: AMLO10 PO (11:35)
[2021-06-24] MEDS ORDERED: OMEP20ER PO (11:35)
[2021-06-24] MEDS ORDERED: LANTUS SOL100 UNIT/1 SC (11:48)
--- NOTE | 2021-06-24 12:07 | NUR ---
DR. MONTEMAYOR UPDATED ON PATIENT MED REC AFTER RN WENT OVER WITH [facility]. INFORMED THAT PATIENT'S BLOOD PRESSURE HAS BEEN UP TO 190S. INFORMED THAT PATIENT TAKES MANY OTHER BP MEDS AT HOME PER HOME MED LIST. ORDERS RECEIVED.
--- NOTE | 2021-06-24 13:01 | NUR ---
SHIFT ASSESSMENT PATENT ALERT AND ORIENTED X4. SBP 170S TO 180S. HR 60S-70S. AFEBRILE. AIRVO AT 50L AND 60% FI02. SATS >95%. MED REC DONE. PATIENT STARTED SCHEDULED LISINOPRIL FOR HTN. PRECEDEX DECREASED TO STAND BY. BOURNE CATHETER PATENT AND DRAINING YELLOW URINE WITH SEDIMENT. NO COMPLAINTS OF PAIN. PHONE AND CALL LIGHT IN REACH. BED RAILS UP. WILL CONTINUE TO MONITOR.
--- NOTE | 2021-06-24 16:30 | NUR ---
1600 ASSESSMENT PATIENT ALERT AND ORIENTED X4. CALM AND COOPERATIVE. AIRVO AT 50L AND 60% FI02. SATS >95%. AFEBRILE. SBP 190S-200S. HR 80S-90S. MEDICATED WITH PRN HYDRALAZINE DUE TO HTN. PULSES STRONG. DIMINISHED LUNG SOUNDS IN ALL LOBES. NO COMPLAINTS OF ANXIETY. DYSPNEA NOTED WHEN RESPONDING. BOURNE CATHETER DRAINING YELLOW URINE WITH SEDAMENT. PATIENT USED BEDPAN TO HAVE BM. ABLE TO MOVE SELF IN BED INDEPENDENTLY WITH STAFF ASSISTANCE WITH BED CONTROLS. BILATERAL 2+ EDEMA IN LOWER EXTREMETIES. SCHEDULE LASIX. NO COMPLAINTS OF PAIN. BED IN BED RAILS UP. PATIENT HAS PHONE AND CALL LIGHT. WILL CONTINUE TO MONITOR.
--- NOTE | 2021-06-24 19:10 | NUR ---
SHIFT SUMMARY PATIENT REMAINED ALERT AND ORIENTED X 4, AFEBRILE. PATIENT COMPLAINED OF HEADACHE THIS SHIFT. PATIENT DECREASED ON AIRVO FROM 50 L AND 70% TO 50 AND 60% THIS SHIFT. HR 60S TO 80S. SBP UP TO 220S THIS SHIFT. PRECEDEX PLACED ON SB IN AM. MED REC AND EMAR UPDATED WITH CURRENT HOME BP MEDS. PATIENT GIVEN PRN HYDRALAZINE X 1, VASOTEC X 2, AND METOPROLOL X 3 THIS SHIFT TO HELP DECREASE BP. PATIENT HAD BM THIS SHIFT. PATIENT HAD GOOD APPETITE. BOURNE DRAINED OVER 3200 MLS OF YELLOW URINE. NO CHANGES TO SKIN NOTED. PATIENT CONTINUES TO REPOSITION SELF WITH REMINDERS. NS REMAINS TKO. BEDBATH COMPLETED THIS SHIFT. BLOOD SUGARS RANGED FROM 82 TO 126. BED LOW, CALL LIGHT IN REACH. REPORT HAS BEEN GIVEN TO ASSUMING TRAVEL REGISTERED NURSE PACU NURSE.
--- NOTE | 2021-06-24 19:51 | NUR ---
PATIENT RESTING QUIETLY WATCHING TV. HYPERTENSION CONTINUES PRN HYDRALAZINE GIVEN. PATIENT C/O SLIGHT PAIN TO RIGHT ANKLE, PATIENT ABLE TO MOVE ANKLE EASILY AND ABLE TO ASSIST WITH POSITIONING IN BED. PATIENT CONTINUES TO BE SOB WITH RESP UP TO HIGH 30'S WITH SLIGHT ACTIVITY. AIRVO 50L FIO2 60% REMAINS IN PLACE. DRY NONPRODUCTIVE COUGH CONTINUES COUGH SYRUP GIVEN.
--- NOTE | 2021-06-24 22:42 | NUR ---
PATIENT VERBALIZED FEELING RESTLESS AND ACHING "ALL OVER". HYPERTENSION CONTINUES. ATIVAN IV AND TYLENOL PO GIVEN.
[2021-06-25 03:41] LABS: BASOPHILS ABSOLUTE AUTO 0.01 K/mm3 (0.00-0.23); BASOPHILS PERCENT AUTO 0 % (0-2); EOSINOPHILS PERCENT AUTO 0 % (0-6); Hematocrit 40.1 % (33.0-51.0); Hemoglobin 13.2 g/dL (11.5-16.0); IMMATURE GRAN ABSOLUTE AUTO 0.21 K/mm3 (0.00-0.10); IMMATURE GRAN PERCENT AUTO 2 % (0-1); LYMPHOCYTES ABSOLUTE AUTO 1.36 K/mm3 (0.84-5.20); LYMPHOCYTES PERCENT AUTO 13 % (21-46); MONOCYTES PERCENT AUTO 4 % (4-13); Mean Corpuscular HGB 27.6 pg (26.0-34.0); Mean Corpuscular HGB Conc 32.9 g/dL (31.5-36.5); Mean Corpuscular Volume 84 fL (80-100); Mean Platelet Volume 10.1 fL (9.1-12.4); NEUTROPHILS ABSOLUTE AUTO 8.29 K/mm3 (1.96-9.15); NEUTROPHILS PERCENT AUTO 81 % (41-73); Platelet Count 279 K/mm3 (150-400); RDW Coefficient Variation 14.9 % (11.7-14.2); RDW Standard Deviation 45.4 fL (35.1-46.3); Red Blood Cell Count 4.79 M/mm3 (3.80-5.20); White Blood Cell Count 10.27 K/mm3 (4.00-11.30)
[2021-06-25 04:02] LABS: Alanine Aminotransfer (ALT/SGP 182 U/L (12-78); Albumin, Blood 2.4 g/dL (3.4-5.0); Albumin/Globulin Ratio 0.6 (0.8-1.8); Alk Phos 78 U/L (50-136); Anion Gap 9 mmol/L (6-16); Aspartate Aminotrans (AST/SGOT 110 U/L (12-37); Bilirubin, Total 0.6 mg/dL (0.1-1.0); Blood Urea Nitrogen 22 mg/dL (8-24); Bun/Creatinine Ratio 33.9 (12.0-20.0); C-REACTIVE PROTEIN, EXT RANGE <0.290 mg/dL (0.000-0.300); CO2, Blood 25 mmol/L (21-32); Calcium, Blood 7.8 mg/dL (8.5-10.1); Chloride, Blood 107 mmol/L (98-108); Creatinine, Blood 0.65 mg/dL (0.40-1.00); Ferritin, Serum 265 ng/mL (8-252); Globulin, Blood 3.8 g/dL (2.2-4.0); Glomerular Filtration Rate >60 (60-); Glucose, Blood 106 mg/dL (70-99); Lactate Dehydrogenase (Ld),Bld 307 U/L (100-240); Potassium, Blood 3.4 mmol/L (3.5-5.5); Sodium, Blood 141 mmol/L (136-145); Total Protein, Blood 6.2 g/dL (6.4-8.2)
--- NOTE | 2021-06-25 05:33 | NUR ---
SUMMARY PATIENT AWAKE MOST OF THE NIGHT. MEDICATED TWICE WITH ATIVAN TO HELP HER RELAX. CONTINUES TO HAVE SOB WITH ACTIVITY, APPEARS TO BE ABLE TO HOLD A CONVERSATION WITH LESS FEELING OF SOB COMPARED TO YESTERDAY. AIRVO 40L FIO2 50% CONTINUES. HYPERTENSION CONTINUES T/O NIGHT. APPEARS TO CORRELATE WITH FEELINGS OF ANXIETY. MEDICATED TWICE WITH PRN HYDRALAZINE AND ONCE WITH PRN VASOTEC. PATIENT ASSISTING WITH REPOSITIONING IN BED AND AT TIMES REPOSITIONING SELF IN BED FOR COMFORT.
--- NOTE | 2021-06-25 08:00 | NUR ---
INITIAL ASSESSMENT PATIENT ALERT AND ORIENTED X 4, AFEBRILE. NO COMPLAINTS OF PAIN. 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 NO L SIDE WEAKNESS NOTED. PATIENT ON AIRVO AT 40 L AND 50% FIO2. LUNGS CLEAR IN UPPER LOBES AND DIMINISHED IN LOWER LOBES. OCCASIONAL DRY COUGH NOTED. PATIENT SOB WITH EXERTION. PATIENT IN SR WITH OCCASIONAL PVCS. HR 80S TO 90S. SBP 180S TO 200S. OCCASIONAL INCONTINENCE OF STOOL. PATIENT HAS GOOD APPETITE. BLOOD SUGAR LOW THIS AM AT 63; APPLE JUICE GIVEN. REGULAR INSULIN HELD. BLOOD SUGAR AFTER BREAKFAST 187. BOURNE DRAINING YELLOW COLORED URINE. PATIENT RECEIVING SCHEDULED LASIX. PATIENT AT END OF MENSTRATION. BRUISES SCATTERED TO ABDOMEN. SMALL EXCORIATION TO LABIA MAJORA. MAC/ GROIN/ PANNUS AND GLUTEAL FOLD ALL REDDENED AND MOIST; SCHEDULED YEAST POWDER BEING ADMINISTERED. NS INFUSING TKO. PATIENT RECEIVED 10 MEQ KDUR THIS AM FOR POTASSIUM OF 3.4. BED LOW, CALL LIGHT IN REACH. WILL CONTINUE TO MONITOR PATIENT FREQUENTLY THROUGHOUT SHIFT.
--- NOTE | 2021-06-25 12:34 | NUR ---
DR. TRACY CALLED AND UPDATED ON PATIENT STATUS. INFORMED THAT SBP 180S TO LOW 200S AND THAT PRN HYDRALAZINE AND VASOTEC GIVEN. INFORMED THAT HOME MEDS ADDED TO EMAR YESTERDAY. INFORMED THAT PATIENT'S SBP DOWN TO 130S THIS AM AFTER RECEIVING SEVERAL PO BP MEDS. INFORMED THAT PATIENT IS WANTING SOMETHING TO HELP HER SLEEP. PATIENT STATED THAT MORPHINE MADE HER TIRED AND SHE WAS WONDERING WHEN SHE CAN HAVE IT NEXT. PATIENT INFORMED THAT MORPHINE IS USED FOR PAIN AND NOT FOR SLEEPING. INFORMED THAT AM BLOOD SUGAR 63. ORDERS RECEIVED.
--- NOTE | 2021-06-25 13:12 | NUR ---
DR. TRACY IN ROOM TO SEE PATIENT.
--- NOTE | 2021-06-25 13:59 | NUR ---
Met pt. lying in bed sleeping offered prayers for pt.
--- NOTE | 2021-06-25 16:30 | NUR ---
PATIENT AFEBRILE. HR IN THE 80S. SBP IN THE 150S AFTER PRN HYDRALAZINE. NO OTHER ACUTE CHANGES TO NOTE ON AT THIS TIME. WILL CONTINUE TO MONITOR.
--- NOTE | 2021-06-25 19:14 | NUR ---
SHIFT SUMMARY PATIENT REMAINED ALERT AND ORIENTED X 4, AFEBRILE. PATIENT GIVEN PRN TYLENOL AND MORPHINE OT FOR COMPLAINT OF ALL OVER PAIN. PATIENT UP WITH PHYSICAL THERAPY TODAY AND TOLERATED WELL. PATIENT REMAINED ON AIRVO AT 40 L AND 50% FIO2. PATIENT NO MORE SOB WITH AMBULATING OUT OF BED THAN SHE IS WITH REPOSITIONING HERSELF IN BED. AIRVO CAME OFF PATIENT ONCE DURING SHIFT AND PATIENT FAIRLY QUICKLY DESATTED INTO 60S. PATIENT REMAINED IN SR WITH PVCS. HR 70S TO 90S. SBP 1-TEENS TO 2-TEENS. LOW BPS AT TIMES FROM PATIENT LIFTING ARM TO EAT. LOWEST TRUE SBP RANGED FROM 130S TO 140S. PRN HYDRALAZINE GIVEN TWICE THIS SHIFT AND PRN VASOTEC GIVEN ONCE. NORVASC DOSE AND LISINOPRIL FREQUENCY INCREASED THIS SHIFT. PATIENT HAD INCONTINENT, SMALL, PASTY, BROWN BM THIS SHIFT. GOOD APPETITE. LASIX DRAINED 2350 MLS OF YELLOW COLORED URINE THIS SHIFT. PATIENT CONTINUING TO RECEIVE SCHEDLED LASIX. NO CHANGES TO SKIN NOTED. PATIENT REPOSITIONS SELF WITH REMINDERS. NS INFUSING TKO. PATIENT RECEIVED 10 MEQ KDUR FOR AM POTASSIUM OF 3.4. MEDICATIONS ORDERED TO HELP PATIENT WITH SLEEP AT PATIENT REQUEST. BED BATH COMPLETED THIS SHIFT. BLOOD SUGARS RANGED FROM [address] TRACY CHANGED SS INSULIN FROM ACHS TO AC ALONE. BED LOW, CALL LIGHT IN REACH. REPORT HAS BEEN GIVEN TO ASSUMING MANAGER MARKETING SALES NURSE.
--- NOTE | 2021-06-25 20:00 | NUR ---
ASSUMED CARE. AOX3, FLAT AFFECT. FOLLOWS DIRECTIONS. USES CALL LIGHT APPROPRIATLY. REPORTS PAIN IN JOINTS 03/03. WANTED TO GET UP TO RECLEINER. USED WALKER AND WAS A SBA TO GET UP OUT OF BED, WALK AROUND THE BED TO THE CHAIR. HAD AIRVO OFF DUE TO SHORT LINE. SATS DROPPED DOWN TO 87%, ONCE BACK ON SHE WAS BACK TO 96%. INFORMED RT OF THIS. SNACK GIVEN. BLOOD SUGARIN THE 200'S. WILL CONTINUE TO MONITOR. CALL LIGHT IN REACH.
[2021-06-26 04:10] LABS: BASOPHILS ABSOLUTE AUTO 0.02 K/mm3 (0.00-0.23); BASOPHILS PERCENT AUTO 0 % (0-2); EOSINOPHILS PERCENT AUTO 0 % (0-6); Hematocrit 39.2 % (33.0-51.0); Hemoglobin 12.7 g/dL (11.5-16.0); IMMATURE GRAN ABSOLUTE AUTO 0.18 K/mm3 (0.00-0.10); IMMATURE GRAN PERCENT AUTO 2 % (0-1); LYMPHOCYTES ABSOLUTE AUTO 1.24 K/mm3 (0.84-5.20); LYMPHOCYTES PERCENT AUTO 14 % (21-46); MONOCYTES ABSOLUTE AUTO 0.45 K/mm3 (0.16-1.47); MONOCYTES PERCENT AUTO 5 % (4-13); Mean Corpuscular HGB 27.4 pg (26.0-34.0); Mean Corpuscular HGB Conc 32.4 g/dL (31.5-36.5); Mean Corpuscular Volume 85 fL (80-100); Mean Platelet Volume 10.6 fL (9.1-12.4); NEUTROPHILS ABSOLUTE AUTO 6.77 K/mm3 (1.96-9.15); NEUTROPHILS PERCENT AUTO 78 % (41-73); Platelet Count 269 K/mm3 (150-400); RDW Coefficient Variation 14.9 % (11.7-14.2); RDW Standard Deviation 45.8 fL (35.1-46.3); Red Blood Cell Count 4.63 M/mm3 (3.80-5.20); White Blood Cell Count 8.66 K/mm3 (4.00-11.30)
[2021-06-26 04:57] LABS: Alanine Aminotransfer (ALT/SGP 177 U/L (12-78); Albumin, Blood 2.2 g/dL (3.4-5.0); Albumin/Globulin Ratio 0.6 (0.8-1.8); Alk Phos 109 U/L (50-136); Anion Gap 5 mmol/L (6-16); Aspartate Aminotrans (AST/SGOT 119 U/L (12-37); Bilirubin, Total 0.8 mg/dL (0.1-1.0); Blood Urea Nitrogen 23 mg/dL (8-24); Bun/Creatinine Ratio 39.7 (12.0-20.0); CO2, Blood 28 mmol/L (21-32); Chloride, Blood 104 mmol/L (98-108); Creatinine, Blood 0.58 mg/dL (0.40-1.00); Globulin, Blood 3.7 g/dL (2.2-4.0); Glomerular Filtration Rate >60 (60-); Glucose, Blood 164 mg/dL (70-99); Potassium, Blood 5.1 mmol/L (3.5-5.5); Sodium, Blood 137 mmol/L (136-145); Total Protein, Blood 5.9 g/dL (6.4-8.2)
--- NOTE | 2021-06-26 05:55 | NUR ---
SHIFT SUMMARY: AOX3, FLAT AFFECT, OCCATIONAL BOUTS OF ANXIETY BUT HAS DONE WELL WITH MANAGING. PAIN NOTED IN JOINTS, MORPHINE USED X1. CONTINUES TO HAVE LEFT HAND TREMORS NORMAL FOR HER. SLOW TO RESPOND. LS DIMINISHED BASES. AIRVO CURRENTLY 45L/35%. TOLERATED UP TO CHAIR, WALKED FROM ONE SIDE OF BED TO THE OTHER WITH USE OF WALKER, NO AIRVO, DESATED TO 87% BEFORE RT TURNED AIRVO DOWN. ONCE AIRVO BACK ON SHE RECOVERED LESS THAN MIN TO 96%. ABLE TO POSITION IN BED WITH NO DYSPNEA. STILL HTN RUNNING AVERATE 160-180'S. HAS BEEN GIVEN HYDRALAZINE AND VASOTEC TONIGHT. HAS HAD SEVERAL SHORT RUNS OF V-TACH, MULTIFORM PVC'S. STRIPS SENT TO CHART. BOURNE OUTPUT 1999. APPETITE IMPROVING. EDEMA TO BLE. USES CALL LIGHT APPROPRIATLY. WILL REPORT TO DAYSMAFT.
--- NOTE | 2021-06-26 08:00 | NUR ---
PT A&OX4. PT DENIES PAIN OR SOB AT REST. MILD LEFT SIDED WEAKNESS FROM OLD CVA. PT IS AFEBRILE. ECG SHOWS SR. SBP TRENDING 160-190'S-ROUTINE AM ANTI-HYPERTENSIVE MEDICATIONS GIVEN. 2+ LOWER EXTREMITY EDEMA, PT PULSES FAINT. LUNGS DIMINISHED IN THE BASES. OCCASIONAL, NONPRODUCTIVE COUGH. PT STANDBY ASSIST OOB TO CHAIR. NO NOTED SOB AND PT MAINTAINED SATS IN THE UPPER 90'S ON 4 LITERS HIGH FLOW/HUMIDIFIED O2. ABDOMEN IS OBESE AND SCATTERED BRUISES FROM LOVENOX AND INSULIN INJECTIONS. CBG 132-COVERAGE HELD, BUT PT DID RECEIVE HER LONG ACTING INSULIN AND STEROID DOSE THIS AM-SEE EMAR. PT DENIES GI DISTRESS. PT SKIN FOLDS RED AND EXCORIATED-MAC CARE DONE AND ANTIFUNGAL POWDER APPLIED. BOURNE DRAINING ADEQUATE AMOUNT OF CLEAR, YELLOW URINE-ROUTINE AM LASIX GIVEN. ANTICIPATE STATUS CHANGE IF PT CONTINUES TO MAINTAIN SATS>90% ON 4 LITERS HIGH FLOW/HUMIDIFIED O2. PT TO WORK WITH PT AND OT TODAY AND WILL ENCOURAGE PT TO BE OOB TO CHAIR TOLERATED. CALL LIGHT WITHIN REACH AND PT WILL CALL FOR ASSIST PRN.
--- NOTE | 2021-06-26 08:43 | NUR ---
PT ATE 100% OF BREAKFAST. PT REQUESTS TO REMAIN SITTING UP IN THE CHAIR FOR NOW. SATS STILL IN UPPER 90'S AND NO NOTED SOB. PT WILL CALL FOR ASSIST PRN-CALL LIGHT WITHIN REACH.
--- NOTE | 2021-06-26 11:55 | NUR ---
PT HAS BEEN SLEEPING SINCE APROXIMATELY 1000. PT AWAKENS EASILY TO VOICE AND REMAINS A&OX4. VS WDL FOR PT. NO NOTED SOB. SATS>90% ON 3 LITERS HIGH FLOW/HUMIDIFIED O2.
--- NOTE | 2021-06-26 13:01 | NUR ---
DR. MILLER GIVEN FULL UPDATE AND PT MADE MED-TELE STATUS. AWARE THAT HUMALOG 17 UNITS-SCHEDULED DOSAGE HAS BEEN HELD X 2 TODAY. TO REVIEW CBG SCHEDULED FOR 1629 TO EVALUATE WHETHER OR NOT PT IS STILL REQUIRING THE SCHEDULED DOSES OF INSULIN IN ADDITION TO THE SLIDING SCALE COVERAGE.
--- NOTE | 2021-06-26 15:17 | NUR ---
PT HAS BEEN NAPPING FOR MOST OF THE AFTERNOON. SHE CONTINUES TO AWAKEN EASILY AND IS A&OX4. PT CONTINUES TO DENY PAIN OR SOB. MAINTAINS SATS>90% ON 3 LITERS HIGH FLOW/HUMIDIFIED O2. BP 181/95-SCHEDULED HYDRALAZINE PO GIVEN. PT REQUESTING A "YOGURT." TN REQUEST SENT TO DIETARY.
--- NOTE | 2021-06-26 17:33 | NUR ---
PT SITTING UP IN RECLINER WATCHING TV WITHOUT NOTED DISTRESS. SATS IN THE UPPER 90'S ON 3 LITERS HIGH FLOW/HUMIDIFIED O2. CBG 257 COVERED PER SLIDING SCALE-SEE EMAR. INTAKE 630 VS. 2550 OUT THIS SHIFT. PT GIVEN SCHEDULED LASIX AFTER THIS TOTAL. PT REQUESTS TO LEAVE BOURNE CATH IN OVER NIGHT SHE IS PUTTING OUT SO MUCH URINE AND DOESN'T WANT TO BE AWAKE ALL NIGHT.
--- NOTE | 2021-06-26 21:57 | NUR ---
SHIFT ASSESSMENT PT ALERT AND ORIENTED, SITTING UPRIGHT IN BED WATCHING TV. C/O 10/10 BONE/ JOINT PAIN, MEDICATED c PRN PAIN MEDS. MOVES ALL EXTREMITIES, SMALL TREMORS TO LEFT HAND FROM PRIOR CVA. DENIES SHORTNESS OF BREATH AT REST, ON 3LPM O2 VIA HIFLOW NC, SATS >92%. BOURNE CATH PATENT, DRAINING LIGHT YELLOW URINE. PT SLIGHTLY HYPERTENSIVE, EVENING MEDICATIONS GIVEN. PT MEDICAL STATUS, ABLE TO SHIFT/ TURN SELF IN BED. CALL LIGHT IN REACH, WILL CONTINUE TO MONITOR.
--- NOTE | 2021-06-27 05:45 | NUR ---
SHIFT SUMMARY PT ALERT AND ORIENTED. MOVING SELF IN BED. DENIES SOB AT REST, O2 SATS REMAIN >90% ON 3LPM HUMIDIFIED NC. BOURNE CATH c 3300ML OUT THIS SHIFT. NO ACUTE CHANGES T/O THE NIGHT, WILL CONTINUE TO MONITOR.
--- NOTE | 2021-06-27 08:00 | NUR ---
PT REPORTS THAT SHE DID NOT SLEEP VERY WELL LAST NIGHT. SHE IS REFUSING TO GET OOB TO CHAIR FOR BREAKFAST SHE STATES THAT SHE IS TOO TIRED. PT ALSO REQUESTS THAT HER BOURNE BE LEFT IN FOR NOW. REQUEST GRANTED, BUT DISCUSSED WITH PT THAT WE HAVE TO TAKE IT OUT IN ORDER TO PREPARE HER FOR DISCHARGE TO HOME. PT AGREES TO HAVE BOURNE DISCONTINUED AND GET OOB TO CHAIR AT 1100. PT REMAINS AFEBRILE. ECG SHOWS SR. BP 189/93-DR. MILLER AWARE. LISINOPRIL INCREASED TO PT HOME DOSE OF 40 MG BY MOUTH DAILY-SEE EMAR. LOWER EXTREMITIY EDEMA HAS IMPROVED- 1+ AND DP/PT PULSES ARE STRONG. LUNGS DIMINISHED IN THE BASES. NO NOTED SOB OR COUGH. PT MAINTAINING SATS IN THE UPPER 90'S ON 2 LITERS NASAL CANULA. PT DENIES GI DISTRESS. CBG 74-PT GIVEN 50 UNITS OF GLARGINE INSTEAD OF 100 UNITS-SEE EMAR. DR. MILLER AWARE. BOURNE DRAINING ADEQUATE AMOUNTS OF CLEAR, YELLOW URINE-ROUTINE AM LASIX GIVEN. PT MAC AREA, PANUS, AND SKIN FOLDS REMAIN EXCORIATED-ANTIFUNGAL POWDER APPLIED.
[2021-06-27 08:38] LABS: Alanine Aminotransfer (ALT/SGP 235 U/L (12-78); Albumin, Blood 2.9 g/dL (3.4-5.0); Albumin/Globulin Ratio 0.7 (0.8-1.8); Alk Phos 114 U/L (50-136); Anion Gap 6 mmol/L (6-16); Aspartate Aminotrans (AST/SGOT 99 U/L (12-37); Blood Urea Nitrogen 25 mg/dL (8-24); CO2, Blood 33 mmol/L (21-32); Calcium, Blood 8.6 mg/dL (8.5-10.1); Chloride, Blood 100 mmol/L (98-108); Glomerular Filtration Rate >60 (60-); Glucose, Blood 79 mg/dL (70-99); Potassium, Blood 4.2 mmol/L (3.5-5.5); Sodium, Blood 139 mmol/L (136-145); Total Protein, Blood 6.9 g/dL (6.4-8.2)
--- NOTE | 2021-06-27 11:13 | NUR ---
STEFFEN DISCONTINUED-2100 CC OUT. HOME O2 EVAL DONE-PT MAINTAINED SATS>90% ON RA AND NO NOTED SOB. CBG 194 COVERED PER SLIDING SCALE-SEE EMAR. ANTICIPATE DISCHARGE TO HOME LATER TODA. PT IS VERY EXCITED TO GO HOME BP 173/107-PT STATES "IT'S JUST BECAUSE I WANT TO GO HOME."
[2021-06-27] MEDS ORDERED: ACET325 (11:48)
[2021-06-27] MEDS ORDERED: ATOR10 PO (11:49)
[2021-06-27] MEDS ORDERED: ASPI81CH PO (11:49)
[2021-06-27] MEDS ORDERED: FAMO20 PO (11:50)
[2021-06-27] MEDS ORDERED: DECADRON6 M1 PO (11:51)
[2021-06-27] MEDS ORDERED: ANTIFUNGAL POWD71 GM TOP (11:52)
--- NOTE | 2021-06-27 12:30 | NUR ---
RX SENT TO [facility]. REVIEWED DISCHARGE INSTRUCTIONS WITH PT-PT VERBALIZES UNDERSTANDING. BELONGINGS RETURNED TO PT. PT DISCHARGED TO HOME VIA WHEELCHAIR VAN.OUT VIA WHEELCHAIR WITH DISCHARGE INSTRUCTIONS AND BELONGINGS ON HAND.
--- NOTE | 2021-06-28 16:32 | NUR ---
Received referral from nurse manager progressive care (Sonja Orr) on 06/27/2021 at 1242. Patient was admitted to [facility] on 06/18/2021 for pneumonia due to COVID-19. Patient discharged 06/27/2021 with orders for home health and elected [facility]. Attempted to reach patient on 06/27/2021 at 1522. Unfortunately line was busy and this leader writer was unable to leave a message. Second attempted to reach patient on 06/28/2021 at 1032. Again, line was busy and this leader writer was unable to leave a message. Third and final attempted to reach patient on 06/28/2021 at 1624. Again, line was busy and this leader writer was unable to leave a message. As such no home health will be able to be initiated for patient as she is unreachable. No further interventions required. Laura Shaw Referral Liaison
== END 2021-06-27 12:40 | disposition home or self-care (01) | DRG 871 ==
LOC: ER 14:20 → ICUW 20:05 → PCU 20:05 → ICUW 20:45 → PCU 20:52 → ICUW 06-19 02:50
PROVIDERS: Family Medicine; Internal Medicine; Physician Assistant; ADMIT Internal Medicine
PROC: 8E0ZXY6 Isolation (ICD-10-PCS; principal; 2021-06-18)
PROC: XW033E5 Introduction of Remdesivir Anti-infective into Peripheral Vein, Percutaneous Approach, New Technology Group 5 (ICD-10-PCS; 2021-06-18)
PROC: XW0DXM6 Introduction of Baricitinib into Mouth and Pharynx, External Approach, New Technology Group 6 (ICD-10-PCS; 2021-06-18)
PROC: 3E0333Z Introduction of Anti-inflammatory into Peripheral Vein, Percutaneous Approach (ICD-10-PCS; 2021-06-18)
PROC: 3E03329 Introduction of Other Anti-infective into Peripheral Vein, Percutaneous Approach (ICD-10-PCS; 2021-06-18)
PROC: 5A0955A Assistance with Respiratory Ventilation, Greater than 96 Consecutive Hours, High Flow/Velocity Cannula (ICD-10-PCS; 2021-06-21)
DX: A41.9 Sepsis, unspecified organism (principal); U07.1 COVID-19; J12.82 Pneumonia due to coronavirus disease 2019; J96.01 Acute respiratory failure with hypoxia; J18.9 Pneumonia, unspecified organism; G82.20 Paraplegia, unspecified; N17.9 Acute kidney failure, unspecified; Z68.42 Body mass index [BMI] 45.0-49.9, adult; R65.20 Severe sepsis without septic shock; G40.909 Epilepsy, unspecified, not intractable, without status epilepticus; K21.9 Gastro-esophageal reflux disease without esophagitis; E11.40 Type 2 diabetes mellitus with diabetic neuropathy, unspecified; F31.9 Bipolar disorder, unspecified; E11.65 Type 2 diabetes mellitus with hyperglycemia; E87.6 Hypokalemia; E66.01 Morbid (severe) obesity due to excess calories; I10 Essential (primary) hypertension; R94.5 Abnormal results of liver function studies; T14.8XXS Other injury of unspecified body region, sequela; Z86.73 Personal history of transient ischemic attack (TIA), and cerebral infarction without residual deficits; Z98.890 Other specified postprocedural states; Z87.891 Personal history of nicotine dependence; Z79.4 Long term (current) use of insulin; Z79.899 Other long term (current) drug therapy; F15.10 Other stimulant abuse, uncomplicated; W18.39XD Other fall on same level, subsequent encounter
CPT/HCPCS: 0097U; 36415; 51702; 71260; 74177; 80053; 82728; 82947; 83615; 83690; 83735; 84100; 84145; 85025; 85379; 85610; 86140; 86141; 93005; 93010; 94640; 94664; 94761; 96374; 96375; 97110; 97116; 97162; 99285-25; A9270; C1751; C9399; J0248; J0360; J0696; J1650; J1815; J1940; J2060; J2270; J2405; J2930; J7030; J7050; J7120; Q9967

== ENCOUNTER → 2021-08-13 | Outpatient (CLI) | payer OTHER ==
[~2021-08-13] MED LIST changes: +ACET325; +ALBU90OI INH; +ALOGLIPTIN25 M1 PO; +AMLO10 PO; +ANTIFUNGAL POWD71 GM TOP; +ASPI81CH PO; +ATOR10 PO; +DECADRON6 M1 PO; +FERSU300 PO; +FLUT1DIS5 INH; +HYDRA25 PO; +LANTUS SOL100 UNIT/1 SC; +METO25 PO; +OMEP20ER PO; +[UNRECOGNIZED DRUG - CODE] PO
== END ==
LOC: LAB SHORT 18:39 → LAB 18:39
DX: E11.65 Type 2 diabetes mellitus with hyperglycemia (principal); E11.40 Type 2 diabetes mellitus with diabetic neuropathy, unspecified
CPT/HCPCS: 82043

== ENCOUNTER 2022-03-02 18:12 | Emergency (ER) | payer OTHER ==
[~2022-03-02] VITALS: Ht 167.6 cm; Wt 156.5 kg
[2022-03-02 18:55] LABS: BASOPHILS ABSOLUTE AUTO 0.04 K/mm3 (0.00-0.23); BASOPHILS PERCENT AUTO 1 % (0-2); EOSINOPHILS ABSOLUTE AUTO 0.12 K/mm3 (0.00-0.68); EOSINOPHILS PERCENT AUTO 1 % (0-6); Hematocrit 46.3 % (33.0-51.0); Hemoglobin 15.6 g/dL (11.5-16.0); IMMATURE GRAN ABSOLUTE AUTO 0.05 K/mm3 (0.00-0.10); IMMATURE GRAN PERCENT AUTO 1 % (0-1); LYMPHOCYTES ABSOLUTE AUTO 2.83 K/mm3 (0.84-5.20); LYMPHOCYTES PERCENT AUTO 34 % (21-46); MONOCYTES ABSOLUTE AUTO 0.55 K/mm3 (0.16-1.47); MONOCYTES PERCENT AUTO 7 % (4-13); Mean Corpuscular HGB 30.5 pg (26.0-34.0); Mean Corpuscular HGB Conc 33.7 g/dL (31.5-36.5); Mean Corpuscular Volume 91 fL (80-100); NEUTROPHILS ABSOLUTE AUTO 4.83 K/mm3 (1.96-9.15); NEUTROPHILS PERCENT AUTO 57 % (41-73); RDW Coefficient Variation 11.8 % (11.7-14.2); RDW Standard Deviation 38.9 fL (35.1-46.3); Red Blood Cell Count 5.11 M/mm3 (3.80-5.20); White Blood Cell Count 8.42 K/mm3 (4.00-11.30)
[2022-03-02 19:05] LABS: Albumin, Blood 3.5 g/dL (3.4-5.0); Albumin/Globulin Ratio 0.8 (0.8-1.8); Bilirubin, Total 0.5 mg/dL (0.1-1.0); Bun/Creatinine Ratio 20.6 (12.0-20.0); Calcium, Blood 9.8 mg/dL (8.5-10.1); Creatinine, Blood 0.78 mg/dL (0.40-1.00); Globulin, Blood 4.6 g/dL (2.2-4.0); Potassium, Blood 4.6 mmol/L (3.5-5.5); Total Protein, Blood 8.1 g/dL (6.4-8.2)
[2022-03-02 19:21] LABS: Mean Platelet Volume 10.6 fL (9.1-12.4); Platelet Count 192 K/mm3 (150-400)
== END 2022-03-02 22:47 | disposition home or self-care (01) ==
LOC: ER 18:12
PROVIDERS: Student in an Organized Health Care Education/Training Program
DX: E11.42 Type 2 diabetes mellitus with diabetic polyneuropathy (principal); E11.9 Type 2 diabetes mellitus without complications; K21.9 Gastro-esophageal reflux disease without esophagitis; I10 Essential (primary) hypertension; Z91.018 Allergy to other foods; Z79.4 Long term (current) use of insulin; Z79.899 Other long term (current) drug therapy; Z87.891 Personal history of nicotine dependence
CPT/HCPCS: 80053; 85025; 99283

== ENCOUNTER → 2022-03-24 | Outpatient (CLI) | payer OTHER | LOC: LAB 17:10 → LAB SHORT 17:10 | DX: R35.0 Frequency of micturition (principal) | CPT/HCPCS: 87077; 87086; 87186 ==

== ENCOUNTER 2022-04-03 09:35 | Inpatient (IN) | payer OTHER ==
[~2022-04-03] VITALS: Ht 172.7 cm; Wt 162.3 kg
[2022-04-03 10:30] LABS: BASOPHILS ABSOLUTE AUTO 0.02 K/mm3 (0.00-0.23); BASOPHILS PERCENT AUTO 0 % (0-2); EOSINOPHILS ABSOLUTE AUTO 0.03 K/mm3 (0.00-0.68); EOSINOPHILS PERCENT AUTO 0 % (0-6); Hematocrit 46.7 % (33.0-51.0); Hemoglobin 15.2 g/dL (11.5-16.0); IMMATURE GRAN ABSOLUTE AUTO 0.04 K/mm3 (0.00-0.10); IMMATURE GRAN PERCENT AUTO 0 % (0-1); LYMPHOCYTES ABSOLUTE AUTO 0.78 K/mm3 (0.84-5.20); LYMPHOCYTES PERCENT AUTO 7 % (21-46); MONOCYTES ABSOLUTE AUTO 0.46 K/mm3 (0.16-1.47); MONOCYTES PERCENT AUTO 4 % (4-13); Mean Corpuscular HGB 30.3 pg (26.0-34.0); Mean Corpuscular HGB Conc 32.5 g/dL (31.5-36.5); Mean Corpuscular Volume 93 fL (80-100); Mean Platelet Volume 10.5 fL (9.1-12.4); NEUTROPHILS ABSOLUTE AUTO 10.35 K/mm3 (1.96-9.15); NEUTROPHILS PERCENT AUTO 89 % (41-73); Platelet Count 194 K/mm3 (150-400); RDW Coefficient Variation 12.2 % (11.7-14.2); RDW Standard Deviation 41.3 fL (35.1-46.3); Red Blood Cell Count 5.02 M/mm3 (3.80-5.20); White Blood Cell Count 11.68 K/mm3 (4.00-11.30)
[2022-04-03 10:55] LABS: International Normalized Ratio 0.98; Prothrombin Time Results 10.3 Sec (9.7-11.5)
[2022-04-03 10:55] LABS: Source, Urine Straight Cath
[2022-04-03 10:58] LABS: Appearance, Urine Clear (Clear); Bilirubin, Urine Neg (Neg); Blood, Urine Neg (Neg); Color, Urine Yellow (P-Yellow); Glucose Qualitative, Urine 4+ (Neg); Ketones, Urine 1+ (Neg); Leukocyte Esterase, Urine Neg (Neg); Nitrite, Urine Pos (Neg); Protein, Urine Neg (Neg); Specific Gravity, Urine 1.015 (1.003-1.022); Urobilinogen, Urine NORM (Normal)
[2022-04-03 11:03] LABS: Albumin, Blood 3.4 g/dL (3.4-5.0); Albumin/Globulin Ratio 0.7 (0.8-1.8); Bilirubin, Direct 0.4 mg/dL (0.0-0.3); Bilirubin, Indirect 0.5 mg/dL (0.1-0.7); Bilirubin, Total 0.9 mg/dL (0.1-1.0); Bun/Creatinine Ratio 20.8 (12.0-20.0); Calcium, Blood 9.2 mg/dL (8.5-10.1); Creatinine, Blood 0.92 mg/dL (0.40-1.00); Globulin, Blood 4.7 g/dL (2.2-4.0); Magnesium, Blood 1.9 mg/dL (1.6-2.4); Phosphorus, Blood 1.8 mg/dL (2.5-4.9); Potassium, Blood 4.4 mmol/L (3.5-5.5); Total Protein, Blood 8.1 g/dL (6.4-8.2)
[2022-04-03 11:18] LABS: Bacteria Many /hpf; Red Blood Cells, Urine 0-2 /hpf (0-2); Squamous Epithelial Cells Few /hpf (Few); White Blood Cells, Urine 0-2 /hpf (0-5)
[2022-04-03 11:47] LABS: Influenza A, PCR NEGATIVE (NEGATIVE); Influenza B, PCR NEGATIVE (NEGATIVE); Resp Syncytial Virus, PCR NEGATIVE (NEGATIVE); SARS-Cov-2 (COVID-19) PCR, MMC NEGATIVE (NEGATIVE)
[2022-04-03 18:09] LABS: U Amphetamine Screen Not Detected; U Barbituate Screen Not Detected; U Benzodiazapine Screen Not Detected; U Buprenorphine Screen Not Detected; U Cannabinoids Screen Not Detected; U Cocaine Screen Not Detected; U Methadone Screen Not Detected; U Methamphetamine Screen Not Detected; U Opiates Screen Not Detected; U Oxycodone Screen DETECTED; U Phencyclidine Screen Not Detected; U Propoxyphene Screen Not Detected
--- NOTE | 2022-04-04 02:11 | NUR ---
PT ARRIVAL TO PCU AT 1999. PT FEBRILE ON ARRIVAL, 103.0 TEMP. SOME RELIEF WITH Q6 TYLENOL AND ICE PACKS, LOW 101'S. TEMP CURRENTLY UP TO 104.1. COOLING K-PAD AND ICE PACKS IN PLACE. PT SYSTOLIC 120-160'S ON ARRIVAL BUT BLOOD PRESSRUE INCREASES THROUGHOUT THE NIGHT. 202/[address] MCCAULEY AWARE, HOME BP MEDICATIONS RESTARTED AND LOPRESSOR PUSH ORDERED.
[2022-04-04 03:51] LABS: BASOPHILS ABSOLUTE AUTO 0.03 K/mm3 (0.00-0.23); BASOPHILS PERCENT AUTO 0 % (0-2); EOSINOPHILS PERCENT AUTO 0 % (0-6); IMMATURE GRAN ABSOLUTE AUTO 0.04 K/mm3 (0.00-0.10); IMMATURE GRAN PERCENT AUTO 0 % (0-1); LYMPHOCYTES ABSOLUTE AUTO 0.64 K/mm3 (0.84-5.20); LYMPHOCYTES PERCENT AUTO 5 % (21-46); MONOCYTES ABSOLUTE AUTO 0.44 K/mm3 (0.16-1.47); MONOCYTES PERCENT AUTO 4 % (4-13); Mean Corpuscular HGB 29.8 pg (26.0-34.0); Mean Corpuscular HGB Conc 31.7 g/dL (31.5-36.5); Mean Corpuscular Volume 94 fL (80-100); Mean Platelet Volume 10.9 fL (9.1-12.4); NEUTROPHILS ABSOLUTE AUTO 11.16 K/mm3 (1.96-9.15); NEUTROPHILS PERCENT AUTO 91 % (41-73); Platelet Count 144 K/mm3 (150-400); RDW Coefficient Variation 12.4 % (11.7-14.2); RDW Standard Deviation 42.6 fL (35.1-46.3); Red Blood Cell Count 4.36 M/mm3 (3.80-5.20); White Blood Cell Count 12.31 K/mm3 (4.00-11.30)
[2022-04-04 04:04] LABS: Albumin, Blood 2.6 g/dL (3.4-5.0); Albumin/Globulin Ratio 0.6 (0.8-1.8); Bilirubin, Total 1.2 mg/dL (0.1-1.0); Bun/Creatinine Ratio 19.1 (12.0-20.0); Calcium, Blood 7.4 mg/dL (8.5-10.1); Creatinine, Blood 0.73 mg/dL (0.40-1.00); Globulin, Blood 4.3 g/dL (2.2-4.0); Phosphorus, Blood 2.1 mg/dL (2.5-4.9); Potassium, Blood 3.8 mmol/L (3.5-5.5); Total Protein, Blood 6.9 g/dL (6.4-8.2)
--- NOTE | 2022-04-04 07:33 | NUR ---
SHIFT SUMMARY ER ADMIT. PT ARRIVAL TO PCU AT 1999. PT FEBRILE ON ARRIVAL, TEMP OF 102-103. ST 120'S. BP 130-160'S SYSTOLIC. C/O 10/10 THROBBING PAIN IN BACK. PT PUT ON TYLENOL Q6 AND ICE PACKS. PT MENTATION LABILE. INITIALLY MUMBLING BUT CONVERSATIONS BECOMING CLEARER NIGHT GOES ON. TYLENOL AND ICEPACKS INITIALLY PROVIDE SOME RELIEF OF TEMP BUT TEMPS RISE HIGH 104.2 THROUGHOUT THE NIGHT. PATIENT FEELING CHILLS AND DOES NOT TOLERATE KEEPING COOLING MEASURES ON FOR EXTENDED PERIODS OF TIME. W/ TEMPERATURE AT 104 PT PUT ON COOLING BLANKET W/ ADDITIONAL TYLENOL. TEMPERATURE DROPPED TO 102 UNTIL SPIKED BACK UP TO 104. PT ALSO HYPERTENSIVE THROUGHOUT THE NIGHT, BP INCREASED FROM INITIAL 130-160'S TO HIGH 210'S SYSTOLIC. DR MCCAULEY AND VINCE AWARE. HOME PO MEDICATIONS RESTARTED AND PRN LOPRESSOR AND HYDRALIZINE ORDERED. LOPRESSOR X2 5MG AND HYDRALIZINE 10MG X1 GIVEN, W/ BP'S STILL HYPERTENSIVE. BOURNE IN PLACE DRAINING YELLOW URINE TO GRAVITY. Q2 TURNS. REDNESS IN MAC AREA. X1 EPISODE OF INCONTINENT HARD STOOL ON ARRIVAL. CONTINUES TO HAVE PAIN W/ Q4 FENTANYL. IN BED W/ COOLING BLANKET ON AND CALL ALARM AT SIDE, REPORT GIVEN TO ONCOMING PENELOPE
--- NOTE | 2022-04-04 09:00 | NUR ---
Care Assumed 0700 A/O to location, event, and states year as 2001. Unable to state month/date. Ferbrile upon care assumption, temp ~104. On cooling blanket and ice packs in place. Hypertensive, see VSS. On 2 L via NC, SPO2 > 90%. Wheezing T/O. RLE increased warmth and redness. Pt able to move her toes but unable to lift leg. States having no sensation in lower extremity since spinal cord damage. Pain of 10/10, lower back. Crying out in pain occasionally. Removing cooling blankets due to discomfort. Will speak to provider about start home meds and treat fever per emar.
--- NOTE | 2022-04-04 10:15 | NUR ---
Provider visit Dr. Adair and team Updated on patients pain, temp, and BP. New orders recieved to start patient on home pain medication. Stop NS fluids. Replacement of Phos.
--- NOTE | 2022-04-04 11:56 | NUR ---
Update - Nausea/vomiting 50 ML of emesis, yellow, treated per emar with Zofran. Pt states improvement. States pain of 10/10 (chronic lower back pain) but appears to be more comfortable. No longer crying and able to fall asleep. States having abd LUQ pain (10/10) that started yesterday. Cooling blanket moved to patient back to prevent continuous removal. Temp decreased to 102.6. No changes in neuro status. On 2 L via NC, SPO2 decreased to 86 when O2 removed. Pt states she does not use oxygen at home. LS wheezing t/o. No cough. Hypertensive occasionally, will treat per emar.
--- NOTE | 2022-04-04 12:50 | NUR ---
Provider Call, Dr. Frausto Updated on patient vomiting/nausea. Treated with Zofran with little improvement. Provider to put in new medication orders.
[2022-04-04 16:47] LABS: Vancomycin, Trough 13.5 ug/mL (5.0-10.0)
--- NOTE | 2022-04-04 17:41 | NUR ---
Shift summary Pt remains on 2 L via NC, LS wheezing T/O. SPO2 > 90%. A/O to location, event, but unable to state correct year/date. Temp reduced to 101.7 and BP stable. Pt has improved N/V with Phenergan. Eating dinner currently, was unable to have lunch due to N/V. TKO to right AC IV. Continous to report pain of 10/10 (lower back). Calm/coopertive and on phone with partner currently. Sinus tach. Will report to oncoming nurse.
--- NOTE | 2022-04-04 19:10 | NUR ---
TOOK OVER CARE OF PT AT 1900. PT RESTING ON 2L NC
--- NOTE | 2022-04-05 04:02 | NUR ---
SUMMARY NEURO: PT A/O X3, UNSURE OF DATE. AT BASELINE, GROSS MOTOR MOVMENT BLE. HX [place]. CARDIAC: SINUS TACH. NORMOTENSIVE. LUNGS: DIMINISHED, PT ON 2LNC. GI: ACTIVE BOWEL SOUNDS, PT STATES UNABLE TO FEEL SENSATION TO VOID. : BOURNE IN PLACE. SKIN: REDNESS/ +3/4 SWELLING ON LLE. FOOT ELEVATED AND ICED APPLIED.
[2022-04-05 05:33] LABS: BASOPHILS ABSOLUTE AUTO 0.03 K/mm3 (0.00-0.23); BASOPHILS PERCENT AUTO 0 % (0-2); EOSINOPHILS PERCENT AUTO 0 % (0-6); Hematocrit 40.5 % (33.0-51.0); Hemoglobin 13.2 g/dL (11.5-16.0); IMMATURE GRAN ABSOLUTE AUTO 0.15 K/mm3 (0.00-0.10); IMMATURE GRAN PERCENT AUTO 1 % (0-1); LYMPHOCYTES ABSOLUTE AUTO 1.01 K/mm3 (0.84-5.20); LYMPHOCYTES PERCENT AUTO 7 % (21-46); MONOCYTES ABSOLUTE AUTO 0.58 K/mm3 (0.16-1.47); MONOCYTES PERCENT AUTO 4 % (4-13); Mean Corpuscular HGB 30.8 pg (26.0-34.0); Mean Corpuscular HGB Conc 32.6 g/dL (31.5-36.5); Mean Corpuscular Volume 94 fL (80-100); Mean Platelet Volume 10.7 fL (9.1-12.4); NEUTROPHILS ABSOLUTE AUTO 13.42 K/mm3 (1.96-9.15); NEUTROPHILS PERCENT AUTO 88 % (41-73); Platelet Count 145 K/mm3 (150-400); RDW Coefficient Variation 12.9 % (11.7-14.2); RDW Standard Deviation 44.2 fL (35.1-46.3); Red Blood Cell Count 4.29 M/mm3 (3.80-5.20); White Blood Cell Count 15.19 K/mm3 (4.00-11.30)
[2022-04-05 05:55] LABS: Bun/Creatinine Ratio 20.2 (12.0-20.0); Calcium, Blood 8.1 mg/dL (8.5-10.1); Creatinine, Blood 0.79 mg/dL (0.40-1.00); Phosphorus, Blood 2.1 mg/dL (2.5-4.9); Potassium, Blood 4.5 mmol/L (3.5-5.5)
--- NOTE | 2022-04-05 16:54 | NUR ---
SHIFT SUMMARY PT REMAINS ALERT AND ORIENTED. BP STABLE. O2 SATS REMAIN ABOVE 90% ON 2L NC. HR SINUS TACH AND TELEMETRY HAS BEEN DISCONTINUED. PT COMPLAINS OF PAIN IN HER BACK THROUGHOUT SHIFT AND TO HER RIGHT LEG. PT MEDICATED PER EMAR FOR PAIN. REDNESS TO RIGHT LEG HAS GONE BEYOND THE BORDER THAT WAS DRAWN, AND NEW LINES HAVE BEEN DRAWN AND DATED. TEMP BOURNE PATENT AND DRAINING CLEAR YELLOW URINE. PT ABLE TO REPOSITION HERSELF IN THE BED. TEMPERATURE HAS NOT GONE BELOW 100.1 THIS SHIFT. PT MEDICATED WITH TYLENOL FOR TEMPERATURE PER EMAR. WILL CONTINUE TO MONITOR AND REPORT TO VIVI NEGRETE
[2022-04-06 03:46] LABS: BASOPHILS ABSOLUTE AUTO 0.02 K/mm3 (0.00-0.23); BASOPHILS PERCENT AUTO 0 % (0-2); EOSINOPHILS ABSOLUTE AUTO 0.08 K/mm3 (0.00-0.68); EOSINOPHILS PERCENT AUTO 1 % (0-6); Hematocrit 35.3 % (33.0-51.0); Hemoglobin 11.8 g/dL (11.5-16.0); IMMATURE GRAN ABSOLUTE AUTO 0.05 K/mm3 (0.00-0.10); IMMATURE GRAN PERCENT AUTO 1 % (0-1); LYMPHOCYTES ABSOLUTE AUTO 1.13 K/mm3 (0.84-5.20); LYMPHOCYTES PERCENT AUTO 11 % (21-46); MONOCYTES ABSOLUTE AUTO 0.66 K/mm3 (0.16-1.47); MONOCYTES PERCENT AUTO 6 % (4-13); Mean Corpuscular HGB 30.9 pg (26.0-34.0); Mean Corpuscular HGB Conc 33.4 g/dL (31.5-36.5); Mean Corpuscular Volume 92 fL (80-100); Mean Platelet Volume 10.6 fL (9.1-12.4); NEUTROPHILS ABSOLUTE AUTO 8.47 K/mm3 (1.96-9.15); NEUTROPHILS PERCENT AUTO 81 % (41-73); Platelet Count 138 K/mm3 (150-400); RDW Coefficient Variation 12.6 % (11.7-14.2); RDW Standard Deviation 42.8 fL (35.1-46.3); Red Blood Cell Count 3.82 M/mm3 (3.80-5.20); White Blood Cell Count 10.41 K/mm3 (4.00-11.30)
[2022-04-06 04:00] LABS: Bun/Creatinine Ratio 22.1 (12.0-20.0); Calcium, Blood 8.2 mg/dL (8.5-10.1); Creatinine, Blood 0.68 mg/dL (0.40-1.00); Phosphorus, Blood 1.4 mg/dL (2.5-4.9); Potassium, Blood 4.4 mmol/L (3.5-5.5)
--- NOTE | 2022-04-06 04:54 | NUR ---
SHIFT SUMMARY: PT REMAINS ALERT AND ORIENTED X3, ORIENTED TO PLACE, PERSON, AND SURROUNDINGS. NOT ABLE TO REMEBER DATE/YEAR. BP AND HR STABLE. TEMPERATURE VIA TEMP BOURNE RANGED FROM 99.8-101.0 THIS SHIFT, MEDICATED PER EMAR. PT COMPLAINED OF BURNING PAIN IN RLE, REPOS, AND MEDICATED PER EMAR. REDNESS TO RIGHT LEFT HAS INCREASED, NEW LINES HAVE BEEN DRAWN AND DATED. RESPIRATIONS EVEN AND UNLABORED, REMAINED ON 2L NC SATING >95%. NS TKO IN RACIEL. BED IN LOW, CALL LIGHT IN REACH, WILL REPORT TO ONCOMING RN.
--- NOTE | 2022-04-06 17:43 | NUR ---
SHIFT SUMMARY PT REMAINS ALERT AND ORIENTED. BP STABLE. O2 SATS REMAIN ABOVE 90% ON 2L NC. UNABLE TO TOLERATE TITRATING TO ROOM AIR. TEMP BOURNE IN PLACE AND TEMPERATURE RANGED FROM 99.7-101.8. PT COMPLAINED OF PAIN TO RLE AND MEDICATED PER EMAR. PT REPOSITIONED NEEDED, BUT ABLE TO REPOSITION HERSELF INDEPENDENTLY WELL. REDNESS TO RLE HAS INCREASED AND SO HAS THE SWELLING. ULTRASOUND AT BEDSIDE. WILL CONTINUE TO MONITOR CLOSELY AND REPORT TO ONCOMING RN
--- NOTE | 2022-04-07 04:02 | NUR ---
SHIFT SUMMARY: PT ALERT AND ORIENTED X4, ABLE TO FOLLOW COMMANDS AND MAKE NEEDS KNOWN. TEMP RANGED FROM 101.0-102.2 THIS SHIFT, MEDICATED WITH TYLENOL PER EMAR. REMAINED ON 2L NC SATING >95%. BP AND HR STABLE. NO COMPLAINTS OF CP/PRESSURE. PT COMPLAINED OF 10/10 R LEG PAIN THIS SHIFT, MEDICATED PER EMAR. BLE FLOATING, PT ABLE TO RESPOS IND BED. NO BM. TEMP BOURNE CATH IN PLACE DRAINING YELLOW URINE TO GRAVITY, APPROX 2100 OF OUTPUT. NS TKO IN RACIEL. BED IN LOW, CALL LIGHT IN REACH, WILL REPORT TO ONCOMING RN.
--- NOTE | 2022-04-07 16:42 | NUR ---
UPDATE PT REMAINS ALERT AND ORIENTED. VS STABLE. PT AFEBRILE THIS SHIFT. PT ABLE TO REPOSITION HERSELF IN THE BED. PT CONTINUES TO COMNPLAIN OF RLE PAIN AND MEDICATED PER EMAR. REPORT GIVEN TO MEDICAL FLOOR RN TO ASSUME CARE. PT TO BE TAKEN UP BY BED
--- NOTE | 2022-04-08 04:33 | NUR ---
SHIFT SUMMARY 41 YR F ADMITTED ON 04/03/22 FOR CELLULITIS OF RLE. FULL CODE. NO ACUTE CHANGES THIS SHIFT. PT C/O 03/03 PAIN IN RLE. PAIN MEDS GIVEN PER EMAR. PT STATED THAT SHE WAS NOT HAPPY THE DILAUDID WAS DC'D. SHE WAS ABLE TO GET SOME SLEEP THIS SHIFT. SHE IS A&O X 4 AND IS ABLE TO LET HER NEEDS BE KNOWN. REDNESS ON RLE APPEARS TO BE WITHDRAWING FROM LINE DRAWN AROUND IT. POWERGLIDE DOES NOT DRAW BLOOD.
[2022-04-08 05:49] LABS: BASOPHILS ABSOLUTE AUTO 0.08 K/mm3 (0.00-0.23); BASOPHILS PERCENT AUTO 1 % (0-2); EOSINOPHILS ABSOLUTE AUTO 0.07 K/mm3 (0.00-0.68); EOSINOPHILS PERCENT AUTO 1 % (0-6); Hematocrit 38.5 % (33.0-51.0); IMMATURE GRAN ABSOLUTE AUTO 0.43 K/mm3 (0.00-0.10); IMMATURE GRAN PERCENT AUTO 5 % (0-1); LYMPHOCYTES ABSOLUTE AUTO 2.05 K/mm3 (0.84-5.20); LYMPHOCYTES PERCENT AUTO 23 % (21-46); MONOCYTES ABSOLUTE AUTO 0.66 K/mm3 (0.16-1.47); MONOCYTES PERCENT AUTO 7 % (4-13); Mean Corpuscular HGB 30.7 pg (26.0-34.0); Mean Corpuscular HGB Conc 33.8 g/dL (31.5-36.5); Mean Corpuscular Volume 91 fL (80-100); Mean Platelet Volume 10.4 fL (9.1-12.4); NEUTROPHILS PERCENT AUTO 64 % (41-73); NRBC ABSOLUTE 0.02 K/mm3 (0.00-0.02); NRBC Auto 0.2 /100 WBC (0.0-0.2); Platelet Count 197 K/mm3 (150-400); RDW Coefficient Variation 12.4 % (11.7-14.2); Red Blood Cell Count 4.24 M/mm3 (3.80-5.20); White Blood Cell Count 9.09 K/mm3 (4.00-11.30)
[2022-04-08 06:08] LABS: Bun/Creatinine Ratio 23.4 (12.0-20.0); Calcium, Blood 8.9 mg/dL (8.5-10.1); Creatinine, Blood 0.51 mg/dL (0.40-1.00)
--- NOTE | 2022-04-08 18:39 | NUR ---
SHIFT SUMMARY PATIENT ALERT AND ORIENTED THROUGHOUT SHIFT. SOMEWHAT WITHDRAWN. ABLE TO STAND AND TAKE STEPS WITH SBA WITH PHYSICAL THERAPY TODAY. PAIN MANAGEMENT IMPROVED. REDNESS TO RLE SLOWLY RECEDING. BOURNE DC'D AT 1720. TOLERATING ADA DIET AND LIQUIDS. SALINE LOCKED. ROUTINE IV ABX. ATTENDS IN PLACE AFTER BOURNE REMOVAL. O2 WEANED TO RA, SATTING ABOVE 90%.
--- NOTE | 2022-04-09 04:53 | NUR ---
SHIFT SUMMARY: PT IS ALERT AND ORIENTED. PT IS CALM AND COOPERATIVE WITH CARE. PT IS A ONE PERSON ASSIST TO THE BSC. PT CALLS APPROPRIATELY. PT REPORTS RLE PAIN, MEDICATING PER EMAR. PT DENIES NAUSEA, VOMITING, AND SOB. PT SLEPT MUCH OF THE NIGHT WHEN NOT DISTURBED. NO ACUTE CHANGES OR COMPLICATIONS. CASH CONTINUE TO MONITOR AND REPORT TO DAY NURSE.
[2022-04-09 09:15] LABS: Albumin, Blood 2.5 g/dL (3.4-5.0); Albumin/Globulin Ratio 0.5 (0.8-1.8); Bilirubin, Total 0.6 mg/dL (0.1-1.0); Bun/Creatinine Ratio 22.3 (12.0-20.0); Calcium, Blood 9.1 mg/dL (8.5-10.1); Creatinine, Blood 0.45 mg/dL (0.40-1.00); Globulin, Blood 5.4 g/dL (2.2-4.0); Potassium, Blood 3.9 mmol/L (3.5-5.5); Total Protein, Blood 7.9 g/dL (6.4-8.2)
--- NOTE | 2022-04-09 19:44 | NUR ---
END OF SHIFT SUMMARY: PATIENT REPORTED PAIN THROUGHOUT THE SHIFT IN HER LOWER RIGHT EXTREMITY. MEDICATED PER PRNS FOR SOME RELIEF. PATIENT AMBULATED IN THE ROOM AND WAS INDEPENDENT WITH HER SHOWER. PATIENT TOLERATED WELL. PATIENT WAS ABLE TO HAVE BOWEL MOVEMENT BY THE AFTERNOON TODAY. BY THE AFTERNOON, PATIENT EXPERIENCED A LOWERING OF HER SBP TO THE HIGH 140'S. PATIENT ELEVATED HER RLE FOR A COUPLE HOURS TODAY. PATIENT REPORTED THAT IT EXACERBATED HER PAIN. PATIENT LYING FLAT IN THE BED. MINIMAL TO NO IMPROVEMENT NOTED IN THE REDNESS AND SWELLING OF RLE. LARGE BLISTER STILL INTACT AT THE END OF SHIFT.
--- NOTE | 2022-04-10 04:47 | NUR ---
SHIFT MOSTLY UNREMARKABLE. PATIENT WAS INDEPENDENTLY MOVING WITHIN ROOM AND DID NOT CALL FOR ASSISTANCE WITH AMBULATION. PAIN WELL MANAGED ON CURRENT REGIMEN. ABX ADMINISTERED WITHOUT DIFFICULTY. ONE BLISTER ON RIGHT LEG POPPED EARLY IN EVENING. CLEANED EXUDATE. SHIFT OTHERWISE UNREMARKABLE. CALL LIGHT LEFT WITHIN REACH.
[2022-04-10] MEDS ORDERED: ACET325 PO (12:59)
[2022-04-10] MEDS ORDERED: VISBIOME 112.51 EACH PO (13:00)
[2022-04-10] MEDS ORDERED: OXYC5 PO (13:01)
[2022-04-10] MEDS ORDERED: CEPH500 PO (13:01)
--- NOTE | 2022-04-10 14:17 | NUR ---
DISCHARGE SUMMARY PATIENT IS ALERT AND ORIENTED. PATIENT HAS BEEN IND IN ROOM ALL SHIFT. PATIENT HAS BEEN PLEASENT AND COOPERATIVE WITH CARE. PATIENT HAS HAD NO ACUTE EVENTS THIS SHIFT. VITAL SIGNS REVIEWED. PATIENT IS BEING DISCHARGED HOME. [facility] IS TRANSPORTING PATIENT.
== END 2022-04-10 14:04 | disposition home health service (06) | DRG 871 ==
LOC: ER 09:35 → ERHOLD 15:49 → MEDS 15:49 → PCU 20:18 → MEDS 04-07 17:26
PROVIDERS: Emergency Medicine; Family Medicine; Nurse Practitioner Acute Care; Student in an Organized Health Care Education/Training Program; ADMIT Hospitalist
PROC: 3E03329 Introduction of Other Anti-infective into Peripheral Vein, Percutaneous Approach (ICD-10-PCS; principal; 2022-04-03)
PROC: 00JU3ZZ Inspection of Spinal Canal, Percutaneous Approach (ICD-10-PCS; 2022-04-03)
DX: A41.4 Sepsis due to anaerobes (principal); G92.8 Other toxic encephalopathy; J96.01 Acute respiratory failure with hypoxia; G82.20 Paraplegia, unspecified; Z68.42 Body mass index [BMI] 45.0-49.9, adult; N39.0 Urinary tract infection, site not specified; L03.115 Cellulitis of right lower limb; E87.20 Acidosis, unspecified; Z20.822 Contact with and (suspected) exposure to COVID-19; R65.20 Severe sepsis without septic shock; F31.9 Bipolar disorder, unspecified; I10 Essential (primary) hypertension; G89.29 Other chronic pain; B96.1 Klebsiella pneumoniae [K. pneumoniae] as the cause of diseases classified elsewhere; E11.65 Type 2 diabetes mellitus with hyperglycemia; G40.909 Epilepsy, unspecified, not intractable, without status epilepticus; G47.33 Obstructive sleep apnea (adult) (pediatric); E11.40 Type 2 diabetes mellitus with diabetic neuropathy, unspecified; T14.8XXS Other injury of unspecified body region, sequela; Z86.73 Personal history of transient ischemic attack (TIA), and cerebral infarction without residual deficits; Z98.890 Other specified postprocedural states; Z87.891 Personal history of nicotine dependence; Z91.018 Allergy to other foods; Z79.4 Long term (current) use of insulin; Z79.52 Long term (current) use of systemic steroids; Z79.82 Long term (current) use of aspirin; Z79.899 Other long term (current) drug therapy; X58.XXXS Exposure to other specified factors, sequela
CPT/HCPCS: 0241U; 36415; 51702; 62270; 71045; 73700; 80048; 80053; 80202; 81001; 81025; 82248; 82947; 83605; 83735; 84100; 84145; 85025; 85610; 85730; 87040; 87077; 87086; 87186; 93005; 93010; 93971; 94640; 94664; 94760; 94762; 96365-59; 96366-59; 96367-59; 96368; 96375-59; 97110; 97116; 97163; 97530; 99285-25; A9270; C1751; J0133; J0360; J0690; J0696; J1170; J1650; J1815; J1885; J2405; J2543; J2550; J3010; J3370; J7030; J7050; J7060

== ENCOUNTER 2022-05-18 19:39 | Emergency (ER) | payer OTHER ==
[~2022-05-18] VITALS: Ht 167.6 cm; Wt 155.6 kg
[~2022-05-18 19:39] MED LIST changes: +VISBIOME 112.51 EACH PO
[2022-05-18 20:33] LABS: BASOPHILS ABSOLUTE AUTO 0.03 K/mm3 (0.00-0.23); BASOPHILS PERCENT AUTO 0 % (0-2); EOSINOPHILS PERCENT AUTO 1 % (0-6); Hematocrit 42.8 % (33.0-51.0); IMMATURE GRAN ABSOLUTE AUTO 0.03 K/mm3 (0.00-0.10); IMMATURE GRAN PERCENT AUTO 0 % (0-1); LYMPHOCYTES ABSOLUTE AUTO 2.52 K/mm3 (0.84-5.20); LYMPHOCYTES PERCENT AUTO 27 % (21-46); MONOCYTES ABSOLUTE AUTO 0.54 K/mm3 (0.16-1.47); MONOCYTES PERCENT AUTO 6 % (4-13); Mean Corpuscular HGB Conc 32.7 g/dL (31.5-36.5); Mean Corpuscular Volume 92 fL (80-100); Mean Platelet Volume 10.6 fL (9.1-12.4); NEUTROPHILS ABSOLUTE AUTO 6.21 K/mm3 (1.96-9.15); NEUTROPHILS PERCENT AUTO 66 % (41-73); Platelet Count 286 K/mm3 (150-400); RDW Coefficient Variation 12.4 % (11.7-14.2); RDW Standard Deviation 41.1 fL (35.1-46.3); Red Blood Cell Count 4.66 M/mm3 (3.80-5.20); White Blood Cell Count 9.43 K/mm3 (4.00-11.30)
[2022-05-18 20:47] LABS: Albumin, Blood 3.3 g/dL (3.4-5.0); Albumin/Globulin Ratio 0.6 (0.8-1.8); Bilirubin, Total 0.4 mg/dL (0.1-1.0); Bun/Creatinine Ratio 26.8 (12.0-20.0); Calcium, Blood 8.5 mg/dL (8.5-10.1); Creatinine, Blood 0.71 mg/dL (0.40-1.00); Globulin, Blood 5.4 g/dL (2.2-4.0); Potassium, Blood 5.1 mmol/L (3.5-5.5); Total Protein, Blood 8.7 g/dL (6.4-8.2)
== END 2022-05-19 02:15 | disposition home or self-care (01) ==
LOC: ER 19:39
PROVIDERS: Student in an Organized Health Care Education/Training Program
DX: M79.89 Other specified soft tissue disorders (principal); R45.1 Restlessness and agitation; I10 Essential (primary) hypertension; E11.9 Type 2 diabetes mellitus without complications; K21.9 Gastro-esophageal reflux disease without esophagitis; Z91.018 Allergy to other foods; Z79.82 Long term (current) use of aspirin; Z79.899 Other long term (current) drug therapy; Z79.4 Long term (current) use of insulin; Z87.891 Personal history of nicotine dependence
CPT/HCPCS: 71046; 80053; 84484; 85025; 85379; 93005; 93010; 93971; J7030

== ENCOUNTER 2022-09-20 12:27 | Inpatient (IN) | payer OTHER ==
[~2022-09-20] VITALS: Ht 167.6 cm; Wt 160.8 kg
[2022-09-20] VITALS (12 sets, daily range): BP systolic 80–118; BP diastolic 38–76
[~2022-09-20 12:27] MED LIST changes: +FEROSUL325 M1 PO; +GLIP10ER PO; +STEGLATRO15 MG PO
[2022-09-20 12:54] LABS: BASOPHILS ABSOLUTE AUTO 0.02 K/mm3 (0.00-0.23); BASOPHILS PERCENT AUTO 0 % (0-2); EOSINOPHILS ABSOLUTE AUTO 0.06 K/mm3 (0.00-0.68); EOSINOPHILS PERCENT AUTO 0 % (0-6); Hemoglobin 12.4 g/dL (11.5-16.0); IMMATURE GRAN ABSOLUTE AUTO 0.06 K/mm3 (0.00-0.10); IMMATURE GRAN PERCENT AUTO 0 % (0-1); LYMPHOCYTES ABSOLUTE AUTO 1.85 K/mm3 (0.84-5.20); LYMPHOCYTES PERCENT AUTO 12 % (21-46); MONOCYTES ABSOLUTE AUTO 0.83 K/mm3 (0.16-1.47); MONOCYTES PERCENT AUTO 5 % (4-13); Mean Corpuscular HGB 29.8 pg (26.0-34.0); Mean Corpuscular HGB Conc 32.6 g/dL (31.5-36.5); Mean Corpuscular Volume 91 fL (80-100); Mean Platelet Volume 10.6 fL (9.1-12.4); NEUTROPHILS PERCENT AUTO 82 % (41-73); Platelet Count 227 K/mm3 (150-400); RDW Coefficient Variation 12.4 % (11.7-14.2); RDW Standard Deviation 41.2 fL (35.1-46.3); Red Blood Cell Count 4.16 M/mm3 (3.80-5.20); White Blood Cell Count 16.02 K/mm3 (4.00-11.30)
[2022-09-20 13:12] LABS: Albumin, Blood 3.1 g/dL (3.4-5.0); Albumin/Globulin Ratio 0.7 (0.8-1.8); Bilirubin, Total 0.8 mg/dL (0.1-1.0); Bun/Creatinine Ratio 28.8 (12.0-20.0); Calcium, Blood 8.6 mg/dL (8.5-10.1); Creatinine, Blood 2.12 mg/dL (0.40-1.00); Globulin, Blood 4.4 g/dL (2.2-4.0); Potassium, Blood 5.6 mmol/L (3.5-5.5); Total Protein, Blood 7.5 g/dL (6.4-8.2)
[2022-09-20 15:12] LABS: Base Excess Venous -3.8 mmol/L; Bicarbonate Venous 20.6 mmol/L (24.0-30.0); PCO2 Venous 52.9 mmHg (38-42)
[2022-09-20 15:13] LABS: pH Blood Venous 7.25 (7.34-7.37)
[2022-09-20] MEDS ORDERED: RYBELSUS3 MG PO (16:34)
[2022-09-20 17:41] LABS: Calcium, Blood 8.3 mg/dL (8.5-10.1); Creatinine, Blood 1.94 mg/dL (0.40-1.00); Potassium, Blood 5.3 mmol/L (3.5-5.5)
--- NOTE | 2022-09-20 18:51 | NUR ---
ADMIT/ END OF SHIFT NOTE. PT ADMITTED FROM ED INTO ROOM [id number]. BP HAVE BEEN LABILE, SBP 80-120s. SPOKE WITH MD, CLARIFIED IVF RATE 200mL/hr TO RUN OVERNIGHT. GIVEN ADA DIET AND PRN PAIN MEDS. ACHS CBGs. WOULD LIKE CBG DONE AT 0230. PLAN TO HAVE CT TO RULE OUT PE. SIGNIFICANT OTHER WAS UPDATED.
[2022-09-20 19:41] LABS: Adenovirus Not Detected (NOT DETECT); Bordetella pertussis Not Detected (NOT DETECT); Chlamydophila pneumoniae Not Detected (NOT DETECT); Coronavirus 229E Not Detected (NOT DETECT); Coronavirus HKU1 Not Detected (NOT DETECT); Coronavirus NL63 Not Detected (NOT DETECT); Coronavirus OC43 Not Detected (NOT DETECT); Human Metapneumovirus Not Detected (NOT DETECT); Human Rhinovirus/Enterovirus Not Detected (NOT DETECT); Influenza A/2009-H1 Not Detected (NOT DETECT); Influenza A/H1 Not Detected (NOT DETECT); Influenza A/H3 Not Detected (NOT DETECT); Influenza B Not Detected (NOT DETECT); Mycoplasma pneumoniae Not Detected (NOT DETECT); Parainfluenza Virus 1 Not Detected (NOT DETECT); Parainfluenza Virus 2 Not Detected (NOT DETECT); Parainfluenza Virus 3 Not Detected (NOT DETECT); Parainfluenza Virus 4 Not Detected (NOT DETECT); Respiratory Syncytial Virus Not Detected (NOT DETECT); SARS-Cov-2 (COVID-19), BioFire Not Detected (NOT DETECT)
[2022-09-20 21:34] LABS: Bun/Creatinine Ratio 31.2 (12.0-20.0); Creatinine, Blood 2.02 mg/dL (0.40-1.00); Potassium, Blood 5.1 mmol/L (3.5-5.5)
[2022-09-20 23:52] LABS: C DIFFICILE DNA NEGATIVE (Negative)
[2022-09-21 03:41] VITALS: BP 114/60
--- NOTE | 2022-09-21 05:34 | NUR ---
SHIFT SUMMARY: MENTATION VARYING THROUGHOUT SHIFT. AT TIMES PT IS CRYING OUT IN PAIN, THEN SEVERAL MINUTES LATER SOUND ASLEEP. PAIN MEDICATED WITH PO TYLENOL X 2, IV FENTYNAL X 1, AND HEATING PAD PLACED TO HELP WITH PAIN CONTROL. PT CONTINUES TO COMPLAIN OF PAIN. EDUCATION PROVIDED FOR PT ABOUT CAREFUL PAIN CONTROL TO MAKE SURE PT IS SAFE DUE TO HOW DROWSY SHE HAS BEEN. PT COMPLAINING OF CHEST PAIN. NO CHANGES NOTED TO TELEMETRY. TROPONINS NEGATIVE IN ED. DR. LEWIS INFROMED OF CONTINUED COMPLAINTS OF CHEST PAIN, RECEIVED ORDERS TO CONTINUE MONITOR TROPONINS TO SEE IF THEY TREND UP. AT THIS TIME TROPONINS REMAIN NEGATIVE, WILL CONTINUE TO MONITOR. HR SINUS TACH THROUGHOUT SHIFT FROM 110'S-130'S. O2 SATS > 92% ON 2 LPM. PT HAVING MULTIPLE LARGE, LOOSE BM'S DURING BEGINNING OF SHIFT. PT REPORTS THIS IS NOT NORMAL FOR HER. C-DIFF RULE OUT COMPLETED. LOOSE STOOLS SUBSIDED AT THIS TIME.
[2022-09-21 06:45] LABS: BASOPHILS ABSOLUTE AUTO 0.02 K/mm3 (0.00-0.23); BASOPHILS PERCENT AUTO 0 % (0-2); EOSINOPHILS ABSOLUTE AUTO 0.05 K/mm3 (0.00-0.68); EOSINOPHILS PERCENT AUTO 1 % (0-6); Hematocrit 36.4 % (33.0-51.0); Hemoglobin 11.7 g/dL (11.5-16.0); IMMATURE GRAN ABSOLUTE AUTO 0.03 K/mm3 (0.00-0.10); IMMATURE GRAN PERCENT AUTO 0 % (0-1); LYMPHOCYTES ABSOLUTE AUTO 1.62 K/mm3 (0.84-5.20); LYMPHOCYTES PERCENT AUTO 15 % (21-46); MONOCYTES ABSOLUTE AUTO 0.62 K/mm3 (0.16-1.47); MONOCYTES PERCENT AUTO 6 % (4-13); Mean Corpuscular HGB 29.7 pg (26.0-34.0); Mean Corpuscular HGB Conc 32.1 g/dL (31.5-36.5); Mean Corpuscular Volume 92 fL (80-100); Mean Platelet Volume 10.9 fL (9.1-12.4); NEUTROPHILS ABSOLUTE AUTO 8.51 K/mm3 (1.96-9.15); NEUTROPHILS PERCENT AUTO 78 % (41-73); Platelet Count 211 K/mm3 (150-400); RDW Coefficient Variation 12.7 % (11.7-14.2); RDW Standard Deviation 42.8 fL (35.1-46.3); Red Blood Cell Count 3.94 M/mm3 (3.80-5.20); White Blood Cell Count 10.85 K/mm3 (4.00-11.30)
[2022-09-21 07:03] LABS: Albumin, Blood 2.7 g/dL (3.4-5.0); Albumin/Globulin Ratio 0.7 (0.8-1.8); Bilirubin, Total 0.5 mg/dL (0.1-1.0); Calcium, Blood 8.1 mg/dL (8.5-10.1); Creatinine, Blood 1.46 mg/dL (0.40-1.00); Globulin, Blood 4.1 g/dL (2.2-4.0); Potassium, Blood 5.3 mmol/L (3.5-5.5); Total Protein, Blood 6.8 g/dL (6.4-8.2)
[2022-09-21 07:49] VITALS: BP 108/63
--- NOTE | 2022-09-21 10:39 | NUR ---
DR AGUIRRE AND DR MABRY IN TO SEE PT.
[2022-09-21 11:15] VITALS: BP 111/64
[2022-09-21 16:24] VITALS: BP 107/65
--- NOTE | 2022-09-21 16:58 | NUR ---
SUMMARY NO ACUTE CHANGES T/O SHIFT. PT WAS VERY PAINFUL AT BEGINNING OF SHIFT, CRYING OUT. NEW ORDERS OBTAINED FOR [employer], GAVE ONE TAB PER ORDERS AT 1030. PT HAS BEEN ABLE TO REST OFF AND ON T/O SHIFT. DID CRY OUT DURING PHYSICAL THERAPY, AT WHICH TIME, WAS ABLE TO STAND AT BEDSIDE AND SIT ON EDGE OF BED BUT UNABLE TO TAKE ANY STEPS. MORE DIFFICULT FOR PT TO TURN TO R SIDE IN BED THAN LEFT. INCONTINENT; PUREWICK IN PLACE, WICKING YELLOW URINE. IV FLUIDS INFUSING PER ORDERS. CALL LIGHT IN REACH.
[2022-09-21 20:58] VITALS: BP 114/68
--- NOTE | 2022-09-21 23:33 | NUR ---
ASSUMED PT CARE FORM BRIT NEGRETE ON . PT IS A&OX2. ABLE TO FOLLOW DIRECTIONS AND MAKE NEEDS KNOWN. PT DENEIS ANY COMPLAINTS OF SOB OR CHEST PAIN THIS EVENING. HR SINUS TACH IN THE LOW 100'S. O2 SATS > 92% ON RA WHEN AWAKE, WILL MONITOR WHEN SLEEPING. WEANED OFF 2 LPM O2 DUE TO SATURATING AT 100% ON 2 LPM. DENIES USING O2 AT HOME. PT COMPLAINING OF INTERMITTENT NAUSEA. MEDICATED WITH IV ZOFRAN WITHOUT SUCCESS. MULTIPLE EMESIS AFTER RECEIVING ZOFRAN. SPOKE WITH DR. JOHNSON, RECEIVED ORDER FOR GI COCKTAIL. PT RESTING COMFORTABLY IN BED AT THIS TIME, REPORTS IMPROVED NAUSEA, WILL MONITOR. PT REPORTS PAIN IN BACK IS 7/10 AND IMPROVED THIS EVENING. REPOSITIONED FOR PAIN RELIEF, NO MEDICATIONS GIVEN AT THIS TIME. LEFT RESTING IN BED WITH CALL LIGHT IN REACH.
[2022-09-22 01:05] VITALS: BP 142/88
[2022-09-22 03:57] VITALS: BP 123/82
[2022-09-22 04:55] LABS: BASOPHILS ABSOLUTE AUTO 0.02 K/mm3 (0.00-0.23); BASOPHILS PERCENT AUTO 0 % (0-2); EOSINOPHILS PERCENT AUTO 1 % (0-6); Hematocrit 35.6 % (33.0-51.0); Hemoglobin 11.3 g/dL (11.5-16.0); IMMATURE GRAN ABSOLUTE AUTO 0.02 K/mm3 (0.00-0.10); IMMATURE GRAN PERCENT AUTO 0 % (0-1); LYMPHOCYTES ABSOLUTE AUTO 1.57 K/mm3 (0.84-5.20); LYMPHOCYTES PERCENT AUTO 20 % (21-46); MONOCYTES ABSOLUTE AUTO 0.51 K/mm3 (0.16-1.47); MONOCYTES PERCENT AUTO 6 % (4-13); Mean Corpuscular HGB 29.5 pg (26.0-34.0); Mean Corpuscular HGB Conc 31.7 g/dL (31.5-36.5); Mean Corpuscular Volume 93 fL (80-100); Mean Platelet Volume 11.1 fL (9.1-12.4); NEUTROPHILS ABSOLUTE AUTO 5.73 K/mm3 (1.96-9.15); NEUTROPHILS PERCENT AUTO 72 % (41-73); Platelet Count 203 K/mm3 (150-400); RDW Coefficient Variation 12.7 % (11.7-14.2); RDW Standard Deviation 43.2 fL (35.1-46.3); Red Blood Cell Count 3.83 M/mm3 (3.80-5.20); White Blood Cell Count 7.95 K/mm3 (4.00-11.30)
[2022-09-22 05:21] LABS: Bun/Creatinine Ratio 35.3 (12.0-20.0); Calcium, Blood 8.4 mg/dL (8.5-10.1); Creatinine, Blood 0.82 mg/dL (0.40-1.00)
--- NOTE | 2022-09-22 06:21 | NUR ---
PT NAUSEATED INTERMITTENTLY THROUGHOUT SHIFT. MEDICATED FOR NAUSEA, SEE EMAR. REPOSITIONED FOR COMFORT OFF BACK. NO ACUTE CHANGES NOTED OVERNIGHT. CALL LIGHT IN REACH.
[2022-09-22 07:49] VITALS: BP 142/74
--- NOTE | 2022-09-22 13:21 | NUR ---
TRANSFER NOTE ALERT, ORIENTED, WITHDRAWN WITH FLAT AFFECT AND SOMETIMES SLOW TO RESPOND. OCCASIONAL N/V AND STOMACH PAIN, CONTROLLED WITH PREMEAL REGLAN AND MAALOX. TOLERATING ADA DIET, CHEM BGS COVERED PER SS. VOIDING CLEAR YELLOW URINE VIA PUREWICK, ATTENDS OCC WET. NS STOPPED. SBA WITH 2 PERSON, FWW, GB TO TRANSFER TO RECLINER. TELE DC'D. O2 WEANED TO RA. TRANSFER TO MEDICAL NO TELE ORDER PLACED. REPORT CALLED TO DEISY OREILLY RN. PATIENT LEFT UNIT IN BED FOR ROOM 358 AT 1300.
[2022-09-22 15:47] VITALS: BP 117/69
[2022-09-22 19:32] VITALS: BP 150/83
--- NOTE | 2022-09-22 19:39 | NUR ---
END OF SHIFT SUMMARY: PATIENT ARRIVED TO UNIT EARLY THIS AFTERNOON. PATIENT REPORTED IMPROVEMENTS IN HER GASTRIC UPSET AND PAIN. PATIENT DID NOT REQUIRE ANY PRN MEDICATIONS FOR NAUSEA. NO DRY HEAVING THIS AFTERNOON AND EVENING. PATIENT WAS ALERT AND ORIENTED X4. PATIENT WOKE EASILY TO SPEAKING HER NAME. PATIENT CONTINUED TO REPORT FATIGUE, BUT STAYED AWAKE WATCHING TV THIS AFTERNOON. ATTEMPTED TO DISCUSS NUTRITION WITH THE PATIENT. PATIENT REPORTS THAT HER SPOUSE DOES THE SHOPPING AND THAT IT IS HER SON AND CAREGIVER THAT PERFORM THE COOKING. OFFERED A PHONE CONFERENCE WITH HER SPOUSE AND A WORLD TRAVEL COUNSELOR HERE AT [facility]. PATIENT DID NOT PROVIDE ANY INDICATION THAT HER PARTNER WOULD BE INTERESTED IN THAT.
[2022-09-23 03:17] VITALS: BP 135/73
--- NOTE | 2022-09-23 04:42 | NUR ---
Shift Summary Pt c/o severe lower back pain t/o shift, medicated per EMAR. Pain well managed, pt slept t/o most of the night. Pt statse very little nausea this shift, did not request any PRN. Purewick in place for incontinence. VSS, pleasant and cooperative with care.
[2022-09-23 05:07] VITALS: BP 139/76
[2022-09-23 07:36] VITALS: BP 149/77
[2022-09-23 15:22] VITALS: BP 184/90
[2022-09-23 15:26] VITALS: BP 187/89
--- NOTE | 2022-09-23 16:37 | NUR ---
SHIFT SUMMARY PT AWAKE DURING SHIFT REPORT, RESTING QUIETLY, WATCHING TV. PURWICK IN PLACE D/T INCONTINENCE. DR SULLIVAN AND DR MABRY IN TO SEE PT THIS MORNING AND AGAIN DURING THE DAY. PT WANTING TO GO HOME RATHER THAN GO TO SNF AT D/C. PT/OT IN TO REASSESS PT AND DISCUSS HOME MOBILITY. PT ABLE TO GET UP WITH THERAPY AND AMBULATE AROUND BED IN RM. O/T ABLE TO OBSERVE AND ASSIST PT IN GETTING DRESSED. D/C ORDERS PLACED. CONTENT SPECIALIST JAVIER TO ARRANGE TRANSPORT. PT SITTING TO EOB, WAITING FOR TX. D/C INSTRUCTIONS REVIEWED WITH PT; VERBALIZED UNDERSTANDING. CALL LT IN REACH.
--- NOTE | 2022-09-23 17:25 | NUR ---
1715 W/C TX HERE TO TAKE PT HOME. ALL BELONGINGS WENT WITH PT. PT ABLE TO WALK TO W/C AND TX SELF W/O DIFFICULTY.
== END 2022-09-23 17:16 | disposition home or self-care (01) | DRG 177 ==
LOC: ER 12:27 → PCU 14:43 → MEDS 09-22 12:55
PROVIDERS: Family Medicine; Internal Medicine; Student in an Organized Health Care Education/Training Program; ADMIT Hospitalist
DX: J15.6 Pneumonia due to other Gram-negative bacteria (principal); G92.8 Other toxic encephalopathy; J96.01 Acute respiratory failure with hypoxia; N17.9 Acute kidney failure, unspecified; G82.20 Paraplegia, unspecified; Z68.43 Body mass index [BMI] 50.0-59.9, adult; E87.1 Hypo-osmolality and hyponatremia; Z20.822 Contact with and (suspected) exposure to COVID-19; G40.909 Epilepsy, unspecified, not intractable, without status epilepticus; E87.5 Hyperkalemia; E11.40 Type 2 diabetes mellitus with diabetic neuropathy, unspecified; F31.9 Bipolar disorder, unspecified; I10 Essential (primary) hypertension; K21.9 Gastro-esophageal reflux disease without esophagitis; E66.9 Obesity, unspecified; E86.0 Dehydration; R07.89 Other chest pain; M54.42 Lumbago with sciatica, left side; T14.8XXS Other injury of unspecified body region, sequela; Z86.73 Personal history of transient ischemic attack (TIA), and cerebral infarction without residual deficits; Z98.890 Other specified postprocedural states; Z87.891 Personal history of nicotine dependence; Z91.018 Allergy to other foods; Z79.4 Long term (current) use of insulin; Z79.82 Long term (current) use of aspirin; Z79.899 Other long term (current) drug therapy; X58.XXXD Exposure to other specified factors, subsequent encounter
CPT/HCPCS: 0202U; 36415; 51701; 71045; 71260; 74177; 80048; 80053; 82803; 82947; 83605; 83735; 83880; 84145; 84484; 85025; 85379; 87040; 87493; 93005; 93010; 93970; 94640; 94644; 94664; 94762; 96365-59; 96375-59; 97110; 97116; 97162; 97166; 97530; 97535; 99285-25; A9270; C9113; J0456; J0696; J1644; J1815; J1885; J2405; J2765; J3010; J7030; J7050; Q9967

== ENCOUNTER → 2022-10-31 | Outpatient (CLI) | payer OTHER ==
[~2022-10-31] MED LIST changes: +RYBELSUS3 MG PO
[2022-10-31 18:54] LABS: Albumin, Blood 3.6 g/dL (3.4-5.0); Albumin/Globulin Ratio 0.9 (0.8-1.8); Bilirubin, Total 0.4 mg/dL (0.1-1.0); Bun/Creatinine Ratio 30.3 (12.0-20.0); Calcium, Blood 9.2 mg/dL (8.5-10.1); Creatinine, Blood 1.19 mg/dL (0.40-1.00); Globulin, Blood 4.2 g/dL (2.2-4.0); Potassium, Blood 4.8 mmol/L (3.5-5.5); Total Protein, Blood 7.8 g/dL (6.4-8.2)
[2022-11-03 11:09] LABS: HBSAG SCREEN Negative (Negative); HCV AB Non Reactive (Non Reactive); HEP A AB, IGM Negative (Negative); HEP B CORE AB, TOT Negative (Negative)
== END | disposition home or self-care (01) ==
LOC: LAB SHORT 15:22 → LAB 15:22
PROVIDERS: Family Medicine
DX: Z11.59 Encounter for screening for other viral diseases (principal); R60.0 Localized edema
CPT/HCPCS: 80053; 86704; 86708; 86803; 87340

== ENCOUNTER → 2022-11-26 | Outpatient (CLI) | payer OTHER ==
[2022-11-26 18:57] LABS: Albumin, Blood 3.6 g/dL (3.4-5.0); Albumin/Globulin Ratio 0.7 (0.8-1.8); Bilirubin, Total 0.6 mg/dL (0.1-1.0); Bun/Creatinine Ratio 22.4 (12.0-20.0); Calcium, Blood 9.2 mg/dL (8.5-10.1); Creatinine, Blood 0.81 mg/dL (0.40-1.00); Globulin, Blood 5.2 g/dL (2.2-4.0); Potassium, Blood 4.3 mmol/L (3.5-5.5); Total Protein, Blood 8.8 g/dL (6.4-8.2)
== END | disposition home or self-care (01) ==
LOC: LAB SHORT 13:57 → LAB 13:57
PROVIDERS: Family Medicine
DX: R60.0 Localized edema (principal)
CPT/HCPCS: 80053

== ENCOUNTER → 2023-01-01 | Outpatient (CLI) | payer OTHER ==
[2023-01-01 19:48] LABS: BASOPHILS ABSOLUTE AUTO 0.04 K/mm3 (0.00-0.23); BASOPHILS PERCENT AUTO 0 % (0-2); EOSINOPHILS ABSOLUTE AUTO 0.45 K/mm3 (0.00-0.68); EOSINOPHILS PERCENT AUTO 5 % (0-6); Hematocrit 46.3 % (33.0-51.0); Hemoglobin 15.5 g/dL (11.5-16.0); IMMATURE GRAN ABSOLUTE AUTO 0.02 K/mm3 (0.00-0.10); IMMATURE GRAN PERCENT AUTO 0 % (0-1); LYMPHOCYTES PERCENT AUTO 33 % (21-46); MONOCYTES ABSOLUTE AUTO 0.49 K/mm3 (0.16-1.47); MONOCYTES PERCENT AUTO 5 % (4-13); Mean Corpuscular HGB 29.2 pg (26.0-34.0); Mean Corpuscular HGB Conc 33.5 g/dL (31.5-36.5); Mean Corpuscular Volume 87 fL (80-100); Mean Platelet Volume 11.1 fL (9.1-12.4); NEUTROPHILS ABSOLUTE AUTO 5.08 K/mm3 (1.96-9.15); NEUTROPHILS PERCENT AUTO 56 % (41-73); Platelet Count 271 K/mm3 (150-400); RDW Standard Deviation 38.6 fL (35.1-46.3); Red Blood Cell Count 5.31 M/mm3 (3.80-5.20); White Blood Cell Count 9.08 K/mm3 (4.00-11.30)
[2023-01-01 20:04] LABS: Albumin, Blood 3.6 g/dL (3.4-5.0); Albumin/Globulin Ratio 0.7 (0.8-1.8); Bilirubin, Total 0.6 mg/dL (0.1-1.0); Bun/Creatinine Ratio 24.4 (12.0-20.0); Calcium, Blood 9.3 mg/dL (8.5-10.1); Creatinine, Blood 0.7 mg/dL (0.40-1.00); Globulin, Blood 5.3 g/dL (2.2-4.0); Potassium, Blood 4.5 mmol/L (3.5-5.5); Total Protein, Blood 8.9 g/dL (6.4-8.2)
[2023-01-06 16:07] LABS: A/G RATIO 0.8 (0.7-1.7); ALBUMIN 3.6 g/dL (2.9-4.4); ALPHA-1-GLOBULIN 0.2 g/dL (0.0-0.4); ALPHA-2-GLOBULIN 1.1 g/dL (0.4-1.0); BETA GLOBULIN 1.3 g/dL (0.7-1.3); GAMMA GLOBULIN 1.7 g/dL (0.4-1.8); GLOBULIN, TOTAL 4.4 g/dL (2.2-3.9); M-SPIKE 0.2 g/dL (Not Observed)
[2023-01-06 17:07] LABS: M-SPIKE, % Not Observed % (Not Observed); PROTEIN,TOTAL,URINE 7.3 mg/dL (Not Estab.)
== END ==
LOC: LAB SHORT 12:00 → LAB 12:00
PROVIDERS: Family Medicine
DX: D89.2 Hypergammaglobulinemia, unspecified (principal); I10 Essential (primary) hypertension; G89.4 Chronic pain syndrome; M43.00 Spondylolysis, site unspecified
CPT/HCPCS: 80053; 84156; 84165; 84166; 85025

== ENCOUNTER → 2023-01-13 | Outpatient (CLI) | payer OTHER | LOC: LAB 15:50 → LAB SHORT 15:50 | DX: R30.0 Dysuria (principal) | CPT/HCPCS: 87077; 87086; 87147; 87186 ==

== ENCOUNTER 2023-01-22 15:59 | Emergency (ER) | payer OTHER ==
[~2023-01-22] VITALS: Ht 167.6 cm; Wt 156.0 kg
[2023-01-22 16:19] VITALS: BP 146/101
[2023-01-22] MEDS ORDERED: LIDOCAINE1 EACH TOP (18:43)
[2023-01-22] MEDS ORDERED: Robaxin750 MG PO (18:43)
== END 2023-01-22 19:17 | disposition home or self-care (01) ==
LOC: ER 15:59
DX: M54.42 Lumbago with sciatica, left side (principal); Z91.018 Allergy to other foods; Z79.899 Other long term (current) drug therapy; Z79.82 Long term (current) use of aspirin; Z79.4 Long term (current) use of insulin; E11.40 Type 2 diabetes mellitus with diabetic neuropathy, unspecified; G40.909 Epilepsy, unspecified, not intractable, without status epilepticus; K21.9 Gastro-esophageal reflux disease without esophagitis; I10 Essential (primary) hypertension; Z87.891 Personal history of nicotine dependence
CPT/HCPCS: 96372; 99283-25; A9270; J1885

== ENCOUNTER 2023-03-12 21:25 | Emergency (ER) | payer OTHER ==
[~2023-03-12] VITALS: Ht 167.6 cm; Wt 155.6 kg
[~2023-03-12 21:25] MED LIST changes: +LIDOCAINE1 EACH TOP; +Robaxin750 MG PO
[2023-03-12 21:27] VITALS: BP 153/82
[2023-03-12 22:39] LABS: Influenza A, PCR NEGATIVE (NEGATIVE); Influenza B, PCR NEGATIVE (NEGATIVE); Resp Syncytial Virus, PCR NEGATIVE (NEGATIVE)
[2023-03-12 22:44] LABS: SARS-Cov-2 (COVID-19) PCR, MMC POSITIVE (NEGATIVE)
[2023-03-12 23:01] LABS: Source, Urine Clean Catch
[2023-03-12 23:12] LABS: Bilirubin, Urine Neg (Neg); Blood, Urine 1+ (Neg); Glucose Qualitative, Urine 4+ (Neg); Ketones, Urine 1+ (Neg); Leukocyte Esterase, Urine 3+ (Neg); Nitrite, Urine Neg (Neg); Protein, Urine Neg (Neg); Urobilinogen, Urine NORM (Normal)
[2023-03-12 23:19] LABS: Appearance, Urine Cloudy (Clear); Color, Urine Yellow (P-Yellow)
[2023-03-12 23:20] LABS: Bacteria Many /hpf; Red Blood Cells, Urine 0-2 /hpf (0-2); Squamous Epithelial Cells Many /hpf (Few); White Blood Cells, Urine 50-100 /hpf (0-5)
[2023-03-13] MEDS ORDERED: ACET500 PO (01:37)
[2023-03-13] MEDS ORDERED: Ibuprofen600 MG PO (01:37)
[2023-03-13] MEDS ORDERED: AMOCLA875 PO (01:39)
== END 2023-03-13 02:18 | disposition home or self-care (01) ==
LOC: ER 21:25
PROVIDERS: Emergency Medicine
DX: U07.1 COVID-19 (principal); J02.0 Streptococcal pharyngitis; N39.0 Urinary tract infection, site not specified; E86.0 Dehydration; E11.40 Type 2 diabetes mellitus with diabetic neuropathy, unspecified; G40.909 Epilepsy, unspecified, not intractable, without status epilepticus; K21.9 Gastro-esophageal reflux disease without esophagitis; I10 Essential (primary) hypertension; Z87.891 Personal history of nicotine dependence
CPT/HCPCS: 0241U; 71045; 81001; 87077; 87081; 87086; 87186; 87430; 93005; 93010; 96374; 99285-25; A9270; J1885; J7030

== ENCOUNTER → 2023-06-03 | Outpatient (CLI) | payer OTHER ==
[~2023-06-03] MED LIST changes: +ACET500 PO; +AMOCLA875 PO; +Ibuprofen600 MG PO
[2023-06-03 15:54] LABS: BASOPHILS ABSOLUTE AUTO 0.03 K/mm3 (0.00-0.23); BASOPHILS PERCENT AUTO 0 % (0-2); EOSINOPHILS ABSOLUTE AUTO 0.11 K/mm3 (0.00-0.68); EOSINOPHILS PERCENT AUTO 1 % (0-6); Hematocrit 43.8 % (33.0-51.0); Hemoglobin 14.7 g/dL (11.5-16.0); IMMATURE GRAN ABSOLUTE AUTO 0.03 K/mm3 (0.00-0.10); IMMATURE GRAN PERCENT AUTO 0 % (0-1); LYMPHOCYTES PERCENT AUTO 25 % (21-46); MONOCYTES ABSOLUTE AUTO 0.43 K/mm3 (0.16-1.47); MONOCYTES PERCENT AUTO 4 % (4-13); Mean Corpuscular HGB 29.7 pg (26.0-34.0); Mean Corpuscular HGB Conc 33.6 g/dL (31.5-36.5); Mean Corpuscular Volume 89 fL (80-100); NEUTROPHILS ABSOLUTE AUTO 6.99 K/mm3 (1.96-9.15); NEUTROPHILS PERCENT AUTO 69 % (41-73); Platelet Count 243 K/mm3 (150-400); RDW Coefficient Variation 12.6 % (11.7-14.2); Red Blood Cell Count 4.95 M/mm3 (3.80-5.20); White Blood Cell Count 10.09 K/mm3 (4.00-11.30)
[2023-06-03 16:25] LABS: CHOL/HDL RATIO 3.4; Cholesterol 108 mg/dL (50-200); HDL Cholesterol 32 mg/dL (>39); LDL/HDL RATIO 1.6; Low Density Lipoprotein Chol 52 mg/dL (0-110); Triglycerides 120 mg/dL (30-160); Very Low Density Lipoprot Chol 24 mg/dL (6-32)
[2023-06-04 14:07] LABS: A/G RATIO 1.2 (1.2-2.2); BILIRUBIN, TOTAL 0.4 mg/dL (0.0-1.2); CALCIUM, SERUM 9.2 mg/dL (8.7-10.2); CREATININE, SERUM 0.86 mg/dL (0.57-1.00); GLOBULIN, TOTAL 3.3 g/dL (1.5-4.5); POTASSIUM, SERUM 4.6 mmol/L (3.5-5.2); PROTEIN, TOTAL, SERUM 7.2 g/dL (6.0-8.5)
== END | disposition home or self-care (01) ==
LOC: LAB SHORT 14:18 → LAB 14:18
PROVIDERS: Family Medicine
DX: E78.2 Mixed hyperlipidemia (principal); E13.42 Other specified diabetes mellitus with diabetic polyneuropathy; Z79.899 Other long term (current) drug therapy
CPT/HCPCS: 80053; 80061; 83036; 85025

== ENCOUNTER 2023-09-21 16:54 | Emergency (ER) | payer OTHER ==
[~2023-09-21] VITALS: Ht 167.6 cm; Wt 156.5 kg
[2023-09-21 17:18] VITALS: BP 145/106
[2023-09-21 17:48] LABS: BASOPHILS ABSOLUTE AUTO 0.02 K/mm3 (0.00-0.23); BASOPHILS PERCENT AUTO 0 % (0-2); EOSINOPHILS ABSOLUTE AUTO 0.12 K/mm3 (0.00-0.68); EOSINOPHILS PERCENT AUTO 2 % (0-6); Hematocrit 44.4 % (33.0-51.0); Hemoglobin 14.7 g/dL (11.5-16.0); IMMATURE GRAN ABSOLUTE AUTO 0.03 K/mm3 (0.00-0.10); IMMATURE GRAN PERCENT AUTO 1 % (0-1); LYMPHOCYTES ABSOLUTE AUTO 2.32 K/mm3 (0.84-5.20); LYMPHOCYTES PERCENT AUTO 36 % (21-46); MONOCYTES ABSOLUTE AUTO 0.54 K/mm3 (0.16-1.47); MONOCYTES PERCENT AUTO 8 % (4-13); Mean Corpuscular HGB 29.5 pg (26.0-34.0); Mean Corpuscular HGB Conc 33.1 g/dL (31.5-36.5); Mean Corpuscular Volume 89 fL (80-100); NEUTROPHILS ABSOLUTE AUTO 3.49 K/mm3 (1.96-9.15); NEUTROPHILS PERCENT AUTO 54 % (41-73); Platelet Count 224 K/mm3 (150-400); RDW Coefficient Variation 12.8 % (11.7-14.2); RDW Standard Deviation 41.3 fL (35.1-46.3); Red Blood Cell Count 4.99 M/mm3 (3.80-5.20); White Blood Cell Count 6.52 K/mm3 (4.00-11.30)
[2023-09-21 18:04] LABS: Albumin, Blood 3.5 g/dL (3.4-5.0); Albumin/Globulin Ratio 0.7 (0.8-1.8); Bilirubin, Total 0.7 mg/dL (0.1-1.0); Bun/Creatinine Ratio 23.7 (12.0-20.0); Calcium, Blood 9.7 mg/dL (8.5-10.1); Creatinine, Blood 0.8 mg/dL (0.40-1.00); Globulin, Blood 4.8 g/dL (2.2-4.0); Potassium, Blood 4.4 mmol/L (3.5-5.5); Total Protein, Blood 8.3 g/dL (6.4-8.2)
[2023-09-21] MEDS ORDERED: Norco 7.5-3251 EACH PO (18:16)
[2023-09-21] MEDS ORDERED: CYCL10 PO (18:17)
[2023-09-21] MEDS ORDERED: ALOGLIPTIN25 M7 PO (18:17)
[2023-09-21] MEDS ORDERED: DULOXETINE HCL60 M1 PO (18:17)
[2023-09-21] MEDS ORDERED: ARIPIPRAZOLE10 M4 PO (18:17)
[2023-09-21] MEDS ORDERED: METO100ER PO (18:18)
[2023-09-21] MEDS ORDERED: RYBELSUS7 MG PO (18:18)
[2023-09-21] MEDS ORDERED: ASPIRIN REGIMEN81 MG PO (18:18)
[2023-09-21] MEDS ORDERED: ATOR40TA PO (18:18)
[2023-09-21] MEDS ORDERED: METOPROLOL TART25 MG PO (18:18)
[2023-09-21] MEDS ORDERED: METFORMIN HCL500 M3 PO (18:18)
[2023-09-21] MEDS ORDERED: PLAVIX75 MG PO (18:19)
[2023-09-21] MEDS ORDERED: Neurontin800 MG PO (18:19)
[2023-09-21] MEDS ORDERED: Cephalexin Monohydrate 500 MG Cap PO ONE (18:25)
[2023-09-21] MEDS ORDERED: CEPH500 PO (18:26)
== END 2023-09-21 18:51 | disposition home or self-care (01) ==
LOC: ER 16:54
PROVIDERS: Physician Assistant
DX: S91.301A Unspecified open wound, right foot, initial encounter (principal); K21.9 Gastro-esophageal reflux disease without esophagitis; I10 Essential (primary) hypertension; E11.40 Type 2 diabetes mellitus with diabetic neuropathy, unspecified; X58.XXXA Exposure to other specified factors, initial encounter; Z79.82 Long term (current) use of aspirin; Z79.84 Long term (current) use of oral hypoglycemic drugs; Z79.4 Long term (current) use of insulin; Z79.899 Other long term (current) drug therapy; Z91.018 Allergy to other foods; Z87.891 Personal history of nicotine dependence
CPT/HCPCS: 73620; 80053; 85025; 99283-25; A9270

== ENCOUNTER 2023-10-01 23:07 | Inpatient (IN) | payer OTHER ==
[~2023-10-01] VITALS: Ht 167.6 cm; Wt 156.5 kg
[2023-10-03 07:21] VITALS: BP 152/73
== END 2023-10-03 14:57 | disposition home or self-care (01) | DRG 872 ==
LOC: ER 23:07 → MEDS 10-02 00:48
PROVIDERS: ADMIT Internal Medicine
DX: A41.9 Sepsis, unspecified organism (principal); L03.115 Cellulitis of right lower limb; G82.20 Paraplegia, unspecified; I10 Essential (primary) hypertension; K21.9 Gastro-esophageal reflux disease without esophagitis; G40.909 Epilepsy, unspecified, not intractable, without status epilepticus; F31.9 Bipolar disorder, unspecified; E11.42 Type 2 diabetes mellitus with diabetic polyneuropathy; Z86.73 Personal history of transient ischemic attack (TIA), and cerebral infarction without residual deficits; Z79.84 Long term (current) use of oral hypoglycemic drugs; Z79.82 Long term (current) use of aspirin; Z87.891 Personal history of nicotine dependence; Z79.4 Long term (current) use of insulin

== ENCOUNTER 2025-02-15 10:56 | Emergency (ER) | payer OTHER ==
[~2025-02-15] VITALS: Ht 167.6 cm; Wt 136.1 kg
[~2025-02-15 10:56] MED LIST changes: +ALOGLIPTIN25 M7 PO; +ARIPIPRAZOLE10 M4 PO; +ASPIRIN REGIMEN81 MG PO; +ATOR40TA PO; +CYCL10 PO; +Cleocin HCl150 MG PO; +DULOXETINE HCL60 M1 PO; +METFORMIN HCL500 M3 PO; +METO100ER PO; +METOPROLOL TART25 MG PO; +Neurontin800 MG PO; +Norco 7.5-3251 EACH PO; +PLAVIX75 MG PO; +RYBELSUS7 MG PO
[2025-02-15] MEDS ORDERED: OxyCODONE 7.5 mg/Acetam 325 mg TABLET PO ONE (11:05)
[2025-02-15] MEDS ORDERED: Morphine Sulfate 4 MG/1 ML Injection IV ONE ×2 (12:15→13:20)
[2025-02-15] MEDS ORDERED: Ondansetron HCl 2 MG / ML 2ML Vial IV ONE (12:15)
[2025-02-15] MEDS ORDERED: HYDROcodone 7.5-APAP 325 TAB PO ONE (14:45)
[2025-02-15] MEDS ORDERED: OXYACE7.5T PO (16:46)
[2025-02-15] MEDS ORDERED: Ketorolac Tromethamine 30mg Vial IV ONE (20:45)
[2025-02-15 21:30] VITALS: BP 108/65
== END 2025-02-15 21:45 | disposition home or self-care (01) ==
LOC: ER 10:56
DX: S82.451A Displaced comminuted fracture of shaft of right fibula, initial encounter for closed fracture (principal); S82.251A Displaced comminuted fracture of shaft of right tibia, initial encounter for closed fracture; Z79.84 Long term (current) use of oral hypoglycemic drugs; Z79.899 Other long term (current) drug therapy; E11.40 Type 2 diabetes mellitus with diabetic neuropathy, unspecified; K21.9 Gastro-esophageal reflux disease without esophagitis; Z87.891 Personal history of nicotine dependence; W17.89XA Other fall from one level to another, initial encounter; Y92.810 Car as the place of occurrence of the external cause
CPT/HCPCS: 29505; 73562-RT; 73610; 96374-59; 96375-59; 99283-25; A9270; J1885; J2270; J2405

== ENCOUNTER 2025-02-17 14:58 | Inpatient (IN) | payer OTHER ==
[2025-02-17] VITALS (28 sets, daily range): BP systolic 81–130; BP diastolic 35–94
[~2025-02-17] VITALS: Ht 167.6 cm; Wt 153.7 kg
[~2025-02-17 14:58] MED LIST changes: +OXYACE7.5T PO
[2025-02-17 16:16] LABS: BASOPHILS ABSOLUTE AUTO 0.02 K/mm3 (0.00-0.23); BASOPHILS PERCENT AUTO 0 % (0-2); EOSINOPHILS ABSOLUTE AUTO 0.11 K/mm3 (0.00-0.68); EOSINOPHILS PERCENT AUTO 1 % (0-6); Hematocrit 35.8 % (33.0-51.0); Hemoglobin 12.1 g/dL (11.5-16.0); IMMATURE GRAN ABSOLUTE AUTO 0.03 K/mm3 (0.00-0.10); IMMATURE GRAN PERCENT AUTO 0 % (0-1); LYMPHOCYTES ABSOLUTE AUTO 1.62 K/mm3 (0.84-5.20); LYMPHOCYTES PERCENT AUTO 16 % (21-46); MONOCYTES ABSOLUTE AUTO 0.70 K/mm3 (0.16-1.47); MONOCYTES PERCENT AUTO 7 % (4-13); Mean Corpuscular HGB Conc 33.8 g/dL (31.5-36.5); Mean Corpuscular Volume 88 fL (80-100); NEUTROPHILS ABSOLUTE AUTO 7.74 K/mm3 (1.96-9.15); NEUTROPHILS PERCENT AUTO 76 % (41-73); NRBC ABSOLUTE 0.00 K/mm3 (0.00-0.02); NRBC Auto 0.0 /100 WBC (0.0-0.2); Platelet Count 255 K/mm3 (150-400); RDW Coefficient Variation 12.5 % (11.7-14.2); RDW Standard Deviation 40.0 fL (35.1-46.3)
[2025-02-17] MEDS ORDERED: NS 1,000 ML IV SCH ×2 (16:30→17:10)
[2025-02-17 16:37] LABS: Alanine Aminotransfer (ALT/SGP 38 U/L (12-78); Albumin, Blood 2.8 g/dL (3.4-5.0); Albumin/Globulin Ratio 0.6 (0.8-1.8); Anion Gap 17 mmol/L (3-11); Aspartate Aminotrans (AST/SGOT 29 U/L (12-37); Bilirubin, Total 1.1 mg/dL (0.1-1.0); Blood Urea Nitrogen 46 mg/dL (8-24); CO2, Blood 20 mmol/L (21-32); Calcium, Blood 7.4 mg/dL (8.5-10.1); Chloride, Blood 87 mmol/L (98-108); Creatinine, Blood 5.44 mg/dL (0.40-1.00); Globulin, Blood 4.7 g/dL (2.2-4.0); Glucose, Blood 761 mg/dL (70-99); Potassium, Blood 4.7 mmol/L (3.5-5.5); Sodium, Blood 119 mmol/L (136-145); Total Protein, Blood 7.5 g/dL (6.4-8.2)
[2025-02-17] MEDS ORDERED: Insulin Human Regular 100 UNIT in NS 100 ML IV SCH (16:50)
[2025-02-17 18:05] LABS: pH Blood Venous 7.17 (7.34-7.37)
[2025-02-17] MEDS ORDERED: FLU VACC TS2025-26(6MOS UP)/PF 45 MCG/0.5 ML SYRINGE IM SCH (18:05)
[2025-02-17] MEDS ORDERED: Metoclopramide HCl 5MG / ML 2ML Vial IV PRN (18:10)
[2025-02-17] MEDS ORDERED: Ondansetron HCl 2 MG / ML 2ML Vial IV PRN (18:10)
[2025-02-17 19:06] LABS: Magnesium, Blood 2.1 mg/dL (1.6-2.4)
[2025-02-17 19:12] LABS: Source, Urine Foley catheter
[2025-02-17 19:18] LABS: Bilirubin, Urine Neg (Neg); Glucose Qualitative, Urine 4+ (Neg); Ketones, Urine Neg (Neg); Leukocyte Esterase, Urine 3+ (Neg); Protein, Urine 3+ (Neg); Specific Gravity, Urine 1.020 (1.003-1.022); Urobilinogen, Urine NORM (Normal)
[2025-02-17 19:28] LABS: Color, Urine Yellow (P-Yellow); Red Blood Cells, Urine 0-2 /hpf (0-2); White Blood Cells, Urine TNTC /hpf (0-5)
[2025-02-17 19:43] LABS: U Amphetamine Screen Not Detected; U Barbituate Screen Not Detected; U Benzodiazapine Screen Not Detected; U Buprenorphine Screen Not Detected; U Cannabinoids Screen Not Detected; U Cocaine Screen Not Detected; U Methadone Screen Not Detected; U Methamphetamine Screen Not Detected; U Opiates Screen DETECTED; U Oxycodone Screen DETECTED; U Phencyclidine Screen Not Detected
[2025-02-17 19:44] LABS: Anion Gap 14.0 mmol/L (3-11); Blood Urea Nitrogen 47.0 mg/dL (8-24); CO2, Blood 20.0 mmol/L (21-32); Calcium, Blood 7.1 mg/dL (8.5-10.1); Chloride, Blood 92.0 mmol/L (98-108); Creatinine, Blood 5.42 mg/dL (0.40-1.00); Glucose, Blood 723.0 mg/dL (70-99); Potassium, Blood 4.6 mmol/L (3.5-5.5); Sodium, Blood 121.0 mmol/L (136-145)
[2025-02-17 19:45] LABS: pH Blood Venous 7.13 (7.34-7.37)
[2025-02-17] MEDS ORDERED: Cefepime HCl 1,000 MG in NS 100 ML IV SCH (20:00)
[2025-02-17 20:11] LABS: Alanine Aminotransfer (ALT/SGP 33 U/L (12-78); Albumin, Blood 2.4 g/dL (3.4-5.0); Albumin/Globulin Ratio 0.6 (0.8-1.8); Anion Gap 15 mmol/L (3-11); Aspartate Aminotrans (AST/SGOT 24 U/L (12-37); Bilirubin, Total 0.8 mg/dL (0.1-1.0); Blood Urea Nitrogen 45 mg/dL (8-24); CO2, Blood 18 mmol/L (21-32); Calcium, Blood 6.7 mg/dL (8.5-10.1); Chloride, Blood 95 mmol/L (98-108); Creatinine, Blood 5.15 mg/dL (0.40-1.00); Globulin, Blood 4.1 g/dL (2.2-4.0); Glucose, Blood 636 mg/dL (70-99); Potassium, Blood 4.2 mmol/L (3.5-5.5); Sodium, Blood 124 mmol/L (136-145); Total Protein, Blood 6.5 g/dL (6.4-8.2)
[2025-02-17] MEDS ORDERED: Sodium Bicarb 8.4% Inj 100 MEQ in Sodium Chloride 0.45% 1,000 ML IV SCH (20:30)
[2025-02-17] MEDS ORDERED: Potassium Chloride 10 Meq Tablet SA PO ONE (20:35)
[2025-02-17 20:49] LABS: Glucose, Blood 557 mg/dL (70-99)
[2025-02-17] MEDS ORDERED: Heparin Sodium,Porcine 5,000 UNIT/0.5 ML SDV SC SCH (21:00)
[2025-02-17 21:15] LABS: pH Blood Venous 7.17 (7.34-7.37)
[2025-02-17 21:51] LABS: Glucose, Blood 504 mg/dL (70-99)
[2025-02-17 23:22] LABS: pH Blood Venous 7.16 (7.34-7.37)
[2025-02-17 23:43] LABS: Anion Gap 12.0 mmol/L (3-11); Blood Urea Nitrogen 49.0 mg/dL (8-24); CO2, Blood 23.0 mmol/L (21-32); Calcium, Blood 7.3 mg/dL (8.5-10.1); Chloride, Blood 98.0 mmol/L (98-108); Creatinine, Blood 5.27 mg/dL (0.40-1.00); Glucose, Blood 343.0 mg/dL (70-99); Potassium, Blood 3.7 mmol/L (3.5-5.5); Sodium, Blood 129.0 mmol/L (136-145)
[2025-02-18] VITALS (43 sets, daily range): BP systolic 86–156; BP diastolic 45–137
[2025-02-18 02:10] LABS: Anion Gap 12.0 mmol/L (3-11); Blood Urea Nitrogen 48.0 mg/dL (8-24); CO2, Blood 23.0 mmol/L (21-32); Calcium, Blood 7.0 mg/dL (8.5-10.1); Chloride, Blood 100.0 mmol/L (98-108); Creatinine, Blood 5.14 mg/dL (0.40-1.00); Glucose, Blood 181.0 mg/dL (70-99); Potassium, Blood 3.4 mmol/L (3.5-5.5); Sodium, Blood 132.0 mmol/L (136-145)
[2025-02-18] MEDS ORDERED: D5W-1/2NS 1,000 ML IV SCH (02:15)
[2025-02-18 04:59] LABS: BASOPHILS ABSOLUTE AUTO 0.01 K/mm3 (0.00-0.23); BASOPHILS PERCENT AUTO 0 % (0-2); EOSINOPHILS ABSOLUTE AUTO 0.14 K/mm3 (0.00-0.68); EOSINOPHILS PERCENT AUTO 2 % (0-6); Hematocrit 28.9 % (33.0-51.0); Hemoglobin 9.9 g/dL (11.5-16.0); IMMATURE GRAN ABSOLUTE AUTO 0.02 K/mm3 (0.00-0.10); IMMATURE GRAN PERCENT AUTO 0 % (0-1); LYMPHOCYTES ABSOLUTE AUTO 1.10 K/mm3 (0.84-5.20); LYMPHOCYTES PERCENT AUTO 15 % (21-46); MONOCYTES ABSOLUTE AUTO 0.78 K/mm3 (0.16-1.47); MONOCYTES PERCENT AUTO 11 % (4-13); Mean Corpuscular HGB Conc 34.3 g/dL (31.5-36.5); Mean Corpuscular Volume 86 fL (80-100); NEUTROPHILS ABSOLUTE AUTO 5.10 K/mm3 (1.96-9.15); NEUTROPHILS PERCENT AUTO 71 % (41-73); NRBC ABSOLUTE 0.00 K/mm3 (0.00-0.02); NRBC Auto 0.0 /100 WBC (0.0-0.2); Platelet Count 184 K/mm3 (150-400); RDW Coefficient Variation 12.6 % (11.7-14.2); RDW Standard Deviation 39.8 fL (35.1-46.3)
[2025-02-18] MEDS ORDERED: FentaNYL Citrate 50 MCG/ML 2 ML Injection IV PRN (05:10)
[2025-02-18 05:18] LABS: Magnesium, Blood 1.9 mg/dL (1.6-2.4); Phosphorus, Blood 4.8 mg/dL (2.5-4.9)
[2025-02-18 05:20] LABS: Alanine Aminotransfer (ALT/SGP 28.0 U/L (12-78); Albumin, Blood 2.2 g/dL (3.4-5.0); Albumin/Globulin Ratio 0.6 (0.8-1.8); Anion Gap 13.0 mmol/L (3-11); Aspartate Aminotrans (AST/SGOT 19.0 U/L (12-37); Bilirubin, Total 0.6 mg/dL (0.1-1.0); Blood Urea Nitrogen 47.0 mg/dL (8-24); CO2, Blood 22.0 mmol/L (21-32); Calcium, Blood 6.8 mg/dL (8.5-10.1); Chloride, Blood 100.0 mmol/L (98-108); Creatinine, Blood 5.1 mg/dL (0.40-1.00); Globulin, Blood 3.8 g/dL (2.2-4.0); Glucose, Blood 238.0 mg/dL (70-99); Potassium, Blood 3.7 mmol/L (3.5-5.5); Sodium, Blood 131.0 mmol/L (136-145); Total Protein, Blood 6.0 g/dL (6.4-8.2); pH Blood Venous 7.20 (7.34-7.37)
[2025-02-18] MEDS ORDERED: CALCIUM GLUC IN NACL, ISO-OSM 50 ML IV ONE (05:45)
[2025-02-18] MEDS ORDERED: Insulin Glargine-Yfgn 100 Unit/mL 3 ML SYR SC ONE (05:45)
[2025-02-18] MEDS ORDERED: Insulin Glargine 100 Unit/ML 3 ML SYR SC SCH ×2 (06:07→17:00)
--- NOTE | 2025-02-18 06:41 | NUR ---
SHIFT SUMMARY: PT HAS BEEN ON BIPAP THROUGH THE NIGHT WITHOUT MUCH CHANGE IN PH OR VBG. SHE IS TOLERATING THE BIPAP WELL THOUGH. BLOOD SUGAR AND ANION GAP IS NOW WITHIN NORMAL RANGE, STILL ON INSULIN GTT AND D51/2NS FOR TRANSITION. PT PAIN HAS INCREASED THIS AM. SHE IS MORE ALERT THIS AM AND IS NOW HAVING SIGNIFICANT PAIN TO HER RIGHT LEG FROM THE FRACTURE AND PAIN TO HER LEFT SHOULDER. HR IS IN THE 90S, SINUS AND BP IS STABLE OFF THE LEVO GTT. PT DOES NOT MOVE MUCH ON HER OWN AND DOES NOT LIKE TO BE REPOSITIONED DUE TO DISCOMFORT. SHE ALSO DOES NOT SEEM INTERESTED IN EATING OR DRINKING ANYTHING YET.
[2025-02-18] MEDS ORDERED: Insulin Human Lispro 100 Units/ML 3ML Syringe SC SCH ×2 (07:30→11:30)
--- NOTE | 2025-02-18 09:45 | NUR ---
AM NOTE: THIS RN ASSUMED CARE OF PT AT APPROX 0700, BEDSIDE REPORT FROM NOC RN. PT DROWSY BUT WAKES EASILY TO VERBAL STIMULI. ALERT DURING BREAKFAST, ORIENTED X4. ABLE TO MAKE NEEDS KNOWN TO STAFF & PARTICIPATE IN CARE. INSULIN GTT & D5 1/2NS OFF PER ORDERS, TRANSITIONED TO 1/2NS @ 100ML/HR. PT ABLE TO TOLERATE BREAKFAST; CBG ACHS, MEDICATED W/ INSULIN PER SS. LEVO GTT ON STANDBY, MAP >65. HR 100'S, SINUS TACH ON MONITOR. SPO2 >90% ON BIPAP / W/ 2L BLEED IN; 2L NC WHILE AWAKE. AFEBRILE. TEMP BOURNE IN PLACE, PATENT & DRAINING YELLOW PURULENT URINE TO GRAVITY. PT C/O PAIN TO RLE, RECENT TIBIAL PLATEAU FX W/ SPLINT IN PLACE. PT REPORTS BEING WHEELCHAIR DEPENDENT FOLLOWING FX BUT STATES SHE IS ABLE TO AMBULATE SOME AT BASELINE. SHE REPORTS LIVING ALONE. PT REQUESTING TO REST AT THIS TIME, CALL LIGHT IN REACH.
[2025-02-18] MEDS ORDERED: AMLODIPINE-OLM1 EACH PO (09:55)
[2025-02-18] MEDS ORDERED: BUSPIRONE HCL7.5 M1 PO (09:56)
[2025-02-18] MEDS ORDERED: INSULIN LI100 UNIT/7 (09:59)
[2025-02-18] MEDS ORDERED: METO100ER PO (10:01)
[2025-02-18] MEDS ORDERED: Crestor40 MG PO (10:01)
[2025-02-18] MEDS ORDERED: NYAMYC15 G1 TOP (10:04)
[2025-02-18] MEDS ORDERED: NS 1,000 ML IV SCH (13:30)
--- NOTE | 2025-02-18 16:05 | NUR ---
TRANSFER TO PCU: PT WAS TRANSFERRED TO PCU-11 BY BED AT APPROX 1555 BY THIS RN. PT DROWSY BUT ORIENTED X4. VSS AT TIME OF TRANSFER. SINUS RHYTHM ON MONITOR, HR 90-100'S. BP STABLE, MAP >65. SPO2 >90% ON ROOM AIR WHILE AWAKE, 2-4L VIA NC OR BIPAP WHILE ASLEEP. AFEBRILE W/ CORE TEMP. BOURNE PATENT & DRAINING CLEARER YELLOW URINE THIS AFTERNOON. NS INFUSING AT 100 ML/HR PER EMAR. TOLERATING PO INTAKE WELL. CBG MANAGED PER ORDERS. PT DENIES PAIN TO MD THIS AFTERNOON, RESTING IN BED. ABLE TO ASSIST W/ REPOSITIONING FROM SIDE TO SIDE. SPLINT TO RLE REMAINS IN PLACE. ALL BELONGINGS TRANSFERRED TO PCU W/ PT.
[2025-02-18] MEDS ORDERED: HYDROcodone 5-APAP 325 TAB PO PRN ×2 (16:40→20:30)
--- NOTE | 2025-02-18 19:00 | NUR ---
ARRIVAL TO PCU / SHIFT SUMMARY PT ARRIVED TO PCU AT APPROXIMATELY 1545. TRANSFERED FROM ICU BED TO HOSPITAL BED VIA LIFT WITH 4 CLINICAL STAFF MEMBERS. A&Ox4, CALLS AND COMMUNICATES NEEDS APPROPRIATELY. BP STABLE, SINUS 90's, DENIES CP/PRESSURE. SpO2> 92% 2L VIA NC, DENIES SOB, BIPAP AT BESIDE. RLE SPLINT IN POOR POSITION, DISCUSSED WITH PHYSICIAN, ORDERS PLACED FOR ORTHO CONSULT. INSTRUCTED BY ORTHO DR TO REMOVED SPLINT AND LEAVE OFF. PRESSURE INJURIES NOTED UNDER SPLINT, LINEN SUPPLY LOAD BUILDER AT BEDSIDE TO ASSIST WITH SKIN ASSESSMENT AND WOUND/SKIN CARE - PHOTOS IN CHART. COCCYX AND MAC AREA WITH REDNESS / ABRASIONS AND MILDLY THICK WHITE DISCHARGE, PHOTOS IN CHART, PHYSICIAN NOTIFIED - ORDERS PLACED. BOURNE CATH PATENT, DRAINING CLEAR YELLOW URINE TO GRAVITY. ABRASION / PRESSURE INJURY ON NOSE FROM BIPAP MASK, PHOTOS IN CHART. MANAGED PAIN PER EMAR. NO OTHER EVENTS, WILL REPORT TO ONCOMING RN.
--- NOTE | 2025-02-18 20:28 | NUR ---
PATIENTS CBG WAS CHECKED FOR NIGHTSHIFT, CBG ENDED UP BEING 478. DR. REGAN WAS NOTIFIED AND ASKED IF SHE WANTED TO ADD MORE HUMALOG TO BE GIVEN WELL CHANGE PRN PAIN MEDS DUE TO PATIENT INTERMITTENTLY CRYING/MOANING IN PAIN. DR. REGAN SAID "GIVE A TOTAL OF 12 UNITS OF HUMALOG FOR THAT BLOOD SUGAR AND THE PRN NORCO MED CAN BE CHANGED FROM Q6H TO Q4H PRN." ORDERS PER PLACED PER MD TELEPHONE ORDERS.
[2025-02-18] MEDS ORDERED: Insulin Human Lispro 100 Units/ML 3ML Syringe SC ONE (20:30)
--- NOTE | 2025-02-18 20:36 | NUR ---
DR. REGAN JUST CALLED BACK SAYING "ACTUALLY GIVE THE PATIENT A TOTAL OF 10 UNITS HUMALOG SINCE PATIENT RECIEVED SEMGLEE EARLIER THIS SHIFT."
[2025-02-19 03:45] VITALS: BP 126/81
--- NOTE | 2025-02-19 04:24 | NUR ---
SHIFT SUMMARY: PATIENT IS A&OX4, BUT DID HAVE SLIGHT CONFUSION AT 0400 BUT WAS EASILY REORIENTED TO WHICH UNIT SHE WAS ON. TELE SHOWS SINUS RHYTHM @ 90'S BPM. PATIENT HAS RIGHT ANKLE PAIN 10/10, AND HAS BEEN MANAGED WITH IV 50 MCG FENTANYL AND PO NORCO PER JUL WELL ICE PACK THERAPY INTERMITTENTLY/ELEVATED WITH PILLOWS. PATIENT HAS BEEN ON CPAP MOST OF THE SHIFT WITH 2L OF OXYGEN BLEED IN WITH >90% SPO2. BOURNE DRAINING TO GRAVITY WITH YELLOW/SEDIMENT URINE OUTPUT. 2P ASSIST WHEN REPOSITIONING IN BED. IV NS RUNNING AT 100ML/HR PER JUL. PATIENT IS LAYING IN BED WITH CALL LIGHT IN REACH. PATIENT CALLS APPROPRIATELY AND IS ABLE TO MAKE HER NEEDS KNOWN. TO BE ENDORSED TO ON COMING NURSE.
[2025-02-19 04:43] LABS: BASOPHILS ABSOLUTE AUTO 0.02 K/mm3 (0.00-0.23); BASOPHILS PERCENT AUTO 0 % (0-2); EOSINOPHILS ABSOLUTE AUTO 0.18 K/mm3 (0.00-0.68); EOSINOPHILS PERCENT AUTO 2 % (0-6); Hematocrit 38.5 % (33.0-51.0); Hemoglobin 13.1 g/dL (11.5-16.0); IMMATURE GRAN ABSOLUTE AUTO 0.05 K/mm3 (0.00-0.10); IMMATURE GRAN PERCENT AUTO 1 % (0-1); LYMPHOCYTES ABSOLUTE AUTO 1.81 K/mm3 (0.84-5.20); LYMPHOCYTES PERCENT AUTO 23 % (21-46); MONOCYTES ABSOLUTE AUTO 1.08 K/mm3 (0.16-1.47); MONOCYTES PERCENT AUTO 14 % (4-13); Mean Corpuscular HGB Conc 34.0 g/dL (31.5-36.5); Mean Corpuscular Volume 88 fL (80-100); NEUTROPHILS ABSOLUTE AUTO 4.74 K/mm3 (1.96-9.15); NEUTROPHILS PERCENT AUTO 60 % (41-73); NRBC ABSOLUTE 0.00 K/mm3 (0.00-0.02); NRBC Auto 0.0 /100 WBC (0.0-0.2); Platelet Count 179 K/mm3 (150-400); RDW Coefficient Variation 12.8 % (11.7-14.2); RDW Standard Deviation 40.8 fL (35.1-46.3)
[2025-02-19 05:17] LABS: Alanine Aminotransfer (ALT/SGP 30.0 U/L (12-78); Albumin, Blood 2.5 g/dL (3.4-5.0); Albumin/Globulin Ratio 0.5 (0.8-1.8); Anion Gap 14.0 mmol/L (3-11); Aspartate Aminotrans (AST/SGOT 24.0 U/L (12-37); Bilirubin, Total 0.6 mg/dL (0.1-1.0); Blood Urea Nitrogen 52.0 mg/dL (8-24); CO2, Blood 20.0 mmol/L (21-32); Calcium, Blood 7.6 mg/dL (8.5-10.1); Chloride, Blood 100.0 mmol/L (98-108); Creatinine, Blood 6.0 mg/dL (0.40-1.00); Globulin, Blood 5.0 g/dL (2.2-4.0); Glucose, Blood 401.0 mg/dL (70-99); Potassium, Blood 4.3 mmol/L (3.5-5.5); Sodium, Blood 130.0 mmol/L (136-145); Total Protein, Blood 7.5 g/dL (6.4-8.2)
[2025-02-19] MEDS ORDERED: NS 500 ML IV ONE (05:30)
--- NOTE | 2025-02-19 05:31 | NUR ---
THIS RN NOTICED THAT PATIENTS LAB RESULTS THIS MORNING SHOWED ANION GAP OF 14, POTASSIUM 4.3, AND GLUCOSE AT 401. DR. REGAN WAS CALLED AND NOTIFIED OF LAB RESULTS SINCE IT COULD POSSIBLY INDICATE PATIENT NEEDING TO BE PLACED BACK ON INSULIN GTT IN ICU. SAID "LET'S TRY A 500ML NS BOLUS AND THEN RECHECK BLOOD SUGAR AFTER THAT AND GO FROM THERE". ORDERS HAVE BEEN PLACED. WAITING FOR PHARMACY TO APPROVE ORDERS.
[2025-02-19 07:41] VITALS: BP 136/79
[2025-02-19] MEDS ORDERED: Insulin Glargine 100 Unit/ML 3 ML SYR SC ONE (08:00)
[2025-02-19 11:20] LABS: Alanine Aminotransfer (ALT/SGP 29.0 U/L (12-78); Albumin, Blood 2.4 g/dL (3.4-5.0); Albumin/Globulin Ratio 0.5 (0.8-1.8); Anion Gap 12.0 mmol/L (3-11); Aspartate Aminotrans (AST/SGOT 20.0 U/L (12-37); Bilirubin, Total 0.6 mg/dL (0.1-1.0); Blood Urea Nitrogen 50.0 mg/dL (8-24); CO2, Blood 22.0 mmol/L (21-32); Calcium, Blood 7.7 mg/dL (8.5-10.1); Chloride, Blood 100.0 mmol/L (98-108); Creatinine, Blood 5.99 mg/dL (0.40-1.00); Globulin, Blood 5.0 g/dL (2.2-4.0); Glucose, Blood 440.0 mg/dL (70-99); Potassium, Blood 4.2 mmol/L (3.5-5.5); Sodium, Blood 130.0 mmol/L (136-145); Total Protein, Blood 7.4 g/dL (6.4-8.2)
[2025-02-19 11:35] VITALS: BP 141/84
[2025-02-19] MEDS ORDERED: Insulin Human Lispro 100 Units/ML 3ML Syringe SC ONE (13:50)
[2025-02-19 15:42] VITALS: BP 154/107
[2025-02-19] MEDS ORDERED: Insulin Human Lispro 100 Units/ML 3ML Syringe SC SCH (16:30)
--- NOTE | 2025-02-19 17:36 | NUR ---
SHIFT SUMMARY A&Ox4, CALLS AND COMMUNICATES NEEDS APPROPRIATELY. BP STABLE, SINUS 90's, DENIES CP/PRESSURE. SpO2> 92% RA. 2L VIA NC OR CPAP WHILE ASLEEP, DENIES SOB. BOURNE CATH PATENT, DRAINING CLEAR YELLOW URINE TO GRAVITY. CBGs >350 THROUGHOUT SHIFT, PHYSICIAN NOTIFIED, ORDERS PLACED. CT OF RLE DONE, INSTRUCTED BY LUC HUITRON TO LEAVE RLE UNDRESSED / NO SPLINT. MANAGED PTs PAIN PER EMAR. NS @ 100mLs/HR. NO OTHER EVENTS, WILL REPORT TO ONCOMING RN.
[2025-02-19 20:03] VITALS: BP 107/84
[2025-02-19] MEDS ORDERED: Insulin Glargine-Yfgn 100 Unit/mL 3 ML SYR SC SCH (21:00)
[2025-02-19] MEDS ORDERED: Insulin Glargine 100 Unit/ML 3 ML SYR SC SCH (21:00)
[2025-02-19 23:41] VITALS: BP 129/85
[2025-02-20] MEDS ORDERED: HYDROcodone 5-APAP 325 TAB PO PRN (01:10)
[2025-02-20 03:49] VITALS: BP 141/71
--- NOTE | 2025-02-20 05:03 | NUR ---
NOC SHIFT SUMMARY PT WAS A&OX4 AT START OF SHIFT ANSWERING QUESTIONS AND MAKING NEEDS KNOWN, THE SHIFT WENT ON SHE REFUSED TO ANSWER QUESTIONS AND WOULD JUST STATE "I DON'T KNOW" TO EVERYTHING ASKED. ONLY WOULD STATE NAME AND WHEN RECIEVING REQUESTED PRN PAIN MEDICATION. PT WILL CRY OUT AND MOAN LOUDLY TO GET STAFF ATTENTION BUT WILL NOT USE CALL LIGHT. EDUCATED LAST WAXER LIGHT AND PURPOSE OF IT. PT STILL DID NOT USE CALL LIGHT FOR THE DURATION OF THE SHIFT. BED IN LOW, BED ALARM ON FOR SAFETY, AND CALL LIGHT IN REACH. PT Q2 REPOSTIONING DURING THE SHIFT, 2-3 PERSON REPOSTION (PT UNABLE TO HELP W/ REPOSTION. LIFT USED AT TIMES FOR REPOSTION WELL. BOURNE IN PLACE DRAINING PALE YELLOW URINE TO GRAVITY, CATH CARE PROVIDED. NO BM THIS SHIFT. PT REMAINS ON TELE, SR/ST, CURRENTY ST AT A RATE OF 114. CPAP WORN FOR NOC, HOWEVER PT WILL TAKE IT OFF AND DESAT TO THE MID 80'S. HOWEVER IS AGREEABLE TO PUT CPAP BACK ON WHEN STAFF ENTER THE ROOM TO ASSIT HER. CORE TEMP MONITORED T/O SHIFT (SEE VITALS). PT MEDICATED PER EMAR W/PRN PAIN MEDICATION. PT HAS POOR PAIN CONTROL AND STATES PAIN IS A 10/10 MOST OF THE SHIFT. CARE CONTINUES, WILL REPORT TO UNCOMING RN.
[2025-02-20 05:10] LABS: BASOPHILS ABSOLUTE AUTO 0.02 K/mm3 (0.00-0.23); BASOPHILS PERCENT AUTO 0 % (0-2); EOSINOPHILS ABSOLUTE AUTO 0.20 K/mm3 (0.00-0.68); EOSINOPHILS PERCENT AUTO 2 % (0-6); Hematocrit 33.6 % (33.0-51.0); Hemoglobin 11.0 g/dL (11.5-16.0); IMMATURE GRAN ABSOLUTE AUTO 0.04 K/mm3 (0.00-0.10); IMMATURE GRAN PERCENT AUTO 1 % (0-1); LYMPHOCYTES ABSOLUTE AUTO 1.41 K/mm3 (0.84-5.20); LYMPHOCYTES PERCENT AUTO 16 % (21-46); MONOCYTES ABSOLUTE AUTO 0.94 K/mm3 (0.16-1.47); MONOCYTES PERCENT AUTO 11 % (4-13); Mean Corpuscular HGB Conc 32.7 g/dL (31.5-36.5); Mean Corpuscular Volume 90 fL (80-100); NEUTROPHILS ABSOLUTE AUTO 6.18 K/mm3 (1.96-9.15); NEUTROPHILS PERCENT AUTO 70 % (41-73); NRBC ABSOLUTE 0.00 K/mm3 (0.00-0.02); NRBC Auto 0.0 /100 WBC (0.0-0.2); Platelet Count 202 K/mm3 (150-400); RDW Coefficient Variation 13.2 % (11.7-14.2); RDW Standard Deviation 42.6 fL (35.1-46.3)
[2025-02-20 05:56] LABS: Alanine Aminotransfer (ALT/SGP 29.0 U/L (12-78); Albumin, Blood 2.3 g/dL (3.4-5.0); Albumin/Globulin Ratio 0.5 (0.8-1.8); Anion Gap 13.0 mmol/L (3-11); Aspartate Aminotrans (AST/SGOT 25.0 U/L (12-37); Bilirubin, Total 0.4 mg/dL (0.1-1.0); Blood Urea Nitrogen 47.0 mg/dL (8-24); CO2, Blood 18.0 mmol/L (21-32); Calcium, Blood 7.6 mg/dL (8.5-10.1); Chloride, Blood 105.0 mmol/L (98-108); Creatinine, Blood 5.91 mg/dL (0.40-1.00); Globulin, Blood 4.9 g/dL (2.2-4.0); Glucose, Blood 300.0 mg/dL (70-99); Magnesium, Blood 1.8 mg/dL (1.6-2.4); Phosphorus, Blood 5.8 mg/dL (2.5-4.9); Potassium, Blood 4.1 mmol/L (3.5-5.5); Sodium, Blood 132.0 mmol/L (136-145); Total Protein, Blood 7.2 g/dL (6.4-8.2)
[2025-02-20] MEDS ORDERED: NS 1,000 ML IV SCH (06:50)
[2025-02-20 07:37] VITALS: BP 124/76
[2025-02-20 11:36] VITALS: BP 126/80
[2025-02-20 15:53] VITALS: BP 150/82
--- NOTE | 2025-02-20 17:57 | NUR ---
SHIFT SUMMARY ASSUMED CARE OF PATIENT AT 0700 AFTER BEDSIDE SHIFT REPORT. PATIENT WAS GROGGY A&0 X 3 AND UNABLE TO EXPLAIN HOW SHE BROKE HER LEG. PATIENT USES CPAP AT NIGHT AND 3L NC T/O SHIFT. PLACED PATIENT ON CPAP DURING NAPS. O2 SAT >94%. PERFORMED BED BATH AND MAC CARE. VITALS SIGNS ARE STABLE. PATIENT HAS REPORTED PAIN SEVERAL TIMES DURING SHIFT. MEDICATED PER EMAR. FOLLEY CATHETER IS IN PLACE DRAINING TO GRAVITY. LEFT AC PIV AND RIGHT FOREARM BOTH FLUSH. PATIENT IS A 2P ASSIST FOR REPOSITIONING.
[2025-02-20 21:00] VITALS: BP 145/103
[2025-02-20] MEDS ORDERED: CefTRIAXone Sodium 1,000 MG in NS 100 ML IV SCH (21:00)
--- NOTE | 2025-02-20 23:52 | NUR ---
TRANSFER OF CARE @ APPROX 2348 REPORT GIVEN BY THIS RN TO MEDICAL FLOOR PROCUREMENT INSPECTOR GELY @ APPROX 2325 PT TAKEN VIA BED TO MEDICAL ROOM 2348, TANA Parekh RN AND KATHARINA Emanuel RN AT BEDSIDE ON ARIVAL NO ACUTE CHANGED FROM PREVIOUS ASSESSMENT
[2025-02-20 23:55] VITALS: BP 125/67
[2025-02-21 03:51] VITALS: BP 126/103
--- NOTE | 2025-02-21 04:15 | NUR ---
Increased [place] Frequency While already waiting for the Photographic Artist to return my call, I was asked by Remigio Alfaro, Break Nurse, to request IV toradol as an adjunt to her current pain regimen because d/t ineffective pain relief. Due to poor renal function, Dr. Michael Gray did not want to order toradol. Requested an increase frequency to [facility] instead and Dr. Gray was okay with this request. T.O. received to change current [place] order from q6h prn to q4h prn. Order updated.
[2025-02-21] MEDS ORDERED: HYDROcodone 5-APAP 325 TAB PO PRN (04:20)
--- NOTE | 2025-02-21 04:27 | NUR ---
SHIFT SUMMARY PT TRANSFERRED FROM PCU TO THE MEDICAL FLOOR. REPORT RECEIVED FROM ELLY NEGRETE AT PCU. PT ARRIVED IN A BARIATRIC BED. PT BROUGHT ALL HER BELONINGS WITH HER. EDUCATED MINE BOSS LIGHT. LIFT PT. BUTTOCKS AND BODY FLOATED WITH PILLOWS. PT TOLERATED CPAP FOR FEW HRS TONIGHT. PT VOCALIZES WHEN IN PAIN, YELLING OUT IN THE ROOM. MEDICATED PER EMAR FOR RLE PAIN. BED AT THE LOWEST POSITION, CALL LIGHT W/I REACH. PT IS A/O X3, SLOW RESPONSES, GROGGY INTERMITTENTLY, EASILY AROUSABLE. BED AT THE LOWEST POSITION, CALL LIGHT W/I REACH.
[2025-02-21 04:56] LABS: BASOPHILS ABSOLUTE AUTO 0.02 K/mm3 (0.00-0.23); BASOPHILS PERCENT AUTO 0 % (0-2); EOSINOPHILS ABSOLUTE AUTO 0.15 K/mm3 (0.00-0.68); EOSINOPHILS PERCENT AUTO 2 % (0-6); Hematocrit 32.9 % (33.0-51.0); Hemoglobin 10.8 g/dL (11.5-16.0); IMMATURE GRAN ABSOLUTE AUTO 0.05 K/mm3 (0.00-0.10); IMMATURE GRAN PERCENT AUTO 1 % (0-1); LYMPHOCYTES ABSOLUTE AUTO 1.36 K/mm3 (0.84-5.20); LYMPHOCYTES PERCENT AUTO 19 % (21-46); MONOCYTES ABSOLUTE AUTO 0.72 K/mm3 (0.16-1.47); MONOCYTES PERCENT AUTO 10 % (4-13); Mean Corpuscular HGB Conc 32.8 g/dL (31.5-36.5); Mean Corpuscular Volume 88 fL (80-100); NEUTROPHILS ABSOLUTE AUTO 4.97 K/mm3 (1.96-9.15); NEUTROPHILS PERCENT AUTO 68 % (41-73); NRBC ABSOLUTE 0.00 K/mm3 (0.00-0.02); NRBC Auto 0.0 /100 WBC (0.0-0.2); Platelet Count 201 K/mm3 (150-400); RDW Coefficient Variation 13.1 % (11.7-14.2); RDW Standard Deviation 42.2 fL (35.1-46.3)
[2025-02-21 05:20] LABS: Alanine Aminotransfer (ALT/SGP 24.0 U/L (12-78); Albumin, Blood 2.3 g/dL (3.4-5.0); Albumin/Globulin Ratio 0.4 (0.8-1.8); Anion Gap 13.0 mmol/L (3-11); Aspartate Aminotrans (AST/SGOT 18.0 U/L (12-37); Bilirubin, Total 0.4 mg/dL (0.1-1.0); Blood Urea Nitrogen 43.0 mg/dL (8-24); CO2, Blood 19.0 mmol/L (21-32); Calcium, Blood 7.9 mg/dL (8.5-10.1); Chloride, Blood 106.0 mmol/L (98-108); Creatinine, Blood 5.58 mg/dL (0.40-1.00); Globulin, Blood 5.2 g/dL (2.2-4.0); Glucose, Blood 302.0 mg/dL (70-99); Magnesium, Blood 1.7 mg/dL (1.6-2.4); Phosphorus, Blood 5.9 mg/dL (2.5-4.9); Potassium, Blood 4.0 mmol/L (3.5-5.5); Sodium, Blood 134.0 mmol/L (136-145); Total Protein, Blood 7.5 g/dL (6.4-8.2)
--- NOTE | 2025-02-21 06:16 | NUR ---
.N: VERBAL LAB ORDERS ENTERED TO [facility] THIS MORNING @0615. PER ORDER, TO CALL DR. MA WITH LAB RESULTS SOON THEY COME IN. WILL NOTIFY THE INCOMING DAY SHIFT NURSE.
[2025-02-21 06:41] LABS: Creatinine, Blood 5.89 mg/dL (0.40-1.00)
[2025-02-21 07:25] VITALS: BP 121/71
--- NOTE | 2025-02-21 07:48 | NUR ---
PER DR MA: DECREASE NS TO 75mL/hr. NO KETONE RESULTS D/T UNABLE TO DRAW VBG D/T PT UNABLE TO TOLERATE.
--- NOTE | 2025-02-21 09:42 | NUR ---
ASSUMPTION OF CARE: THIS RN ASSUMED CARE OF PATIENT. AWAKE DURING SHIFT CHANGE REPORT. LYING IN BED c HOB ELEVATED, SOBBING. PAIN IN LE 03/03. ADMINISTERED 50MCG FENTANYL IV; EFFECTIVE AFTER TEN MINUTES WITH EVEN, UNLABORED BREATHS. MAINTAINING SPO2 >92% c 3LPM/NC, WHICH IS BASELINE. CPAP @ BEDSIDE. MOST RECENT TELE STRIP IN CHART INTERPRETED SINUS TACH @ 120. BED IN LOWEST POSITION. CALL LIGHT WITHIN REACH. ACUTE NEEDS MET.
[2025-02-21 11:55] VITALS: BP 118/78
[2025-02-21 11:57] LABS: pH Blood Venous 7.25 (7.34-7.37)
--- NOTE | 2025-02-21 11:58 | NUR ---
CALL FROM FABIEN IN RT: PT CRITICAL pH OF 7.25. INCREASED FROM 12/20 RESULT OF 7.20.
[2025-02-21 16:06] VITALS: BP 122/79
[2025-02-21 17:26] VITALS: BP 148/92
--- NOTE | 2025-02-21 17:26 | NUR ---
PATIENT TRANSFERRED TO PCU20 TO BETTER ADEQUATELY TREAT PAIN AND MONITOR RESPIRATORY STATUS.
--- NOTE | 2025-02-21 17:27 | NUR ---
PT ARRIVED TO PCU 20 ON BIPAP AVAP SETTINGS 14/6. PT ALERT AND ORIENTED X3. ALBE TO ANSWER SOME QUESTIONS. PT WAS GIVEN FENTANYL IV PRIOR TO TRANSFER AND THAT PAIN REMAINS AT 10/10 ON RIGHT LEG AND ANKLE. VITALS HRR 108 ST, SBP 140'S, SATS 99% ON AVAP, AFEBRILE. NS RUNNING AT 50MLS/HR. BOURNE DRAINING YELLOW URINE VIA GRAVITY. WILL CONTINUE TO MONITOR
[2025-02-21 18:15] LABS: pH Blood Venous 7.25 (7.34-7.37)
[2025-02-21] MEDS ORDERED: Sodium Bicarb 8.4% Inj 100 MEQ in Sodium Chloride 0.45% 1,000 ML IV SCH (19:00)
[2025-02-21 19:36] VITALS: BP 133/74
[2025-02-22] VITALS (7 sets, daily range): BP systolic 112–162; BP diastolic 65–92
[2025-02-22 04:20] LABS: BASOPHILS ABSOLUTE AUTO 0.02 K/mm3 (0.00-0.23); BASOPHILS PERCENT AUTO 0 % (0-2); EOSINOPHILS ABSOLUTE AUTO 0.15 K/mm3 (0.00-0.68); EOSINOPHILS PERCENT AUTO 2 % (0-6); Hematocrit 29.4 % (33.0-51.0); Hemoglobin 9.8 g/dL (11.5-16.0); IMMATURE GRAN ABSOLUTE AUTO 0.05 K/mm3 (0.00-0.10); IMMATURE GRAN PERCENT AUTO 1 % (0-1); LYMPHOCYTES ABSOLUTE AUTO 1.61 K/mm3 (0.84-5.20); LYMPHOCYTES PERCENT AUTO 25 % (21-46); MONOCYTES ABSOLUTE AUTO 0.69 K/mm3 (0.16-1.47); MONOCYTES PERCENT AUTO 11 % (4-13); Mean Corpuscular HGB Conc 33.3 g/dL (31.5-36.5); Mean Corpuscular Volume 87 fL (80-100); NEUTROPHILS ABSOLUTE AUTO 3.96 K/mm3 (1.96-9.15); NEUTROPHILS PERCENT AUTO 61 % (41-73); NRBC ABSOLUTE 0.00 K/mm3 (0.00-0.02); NRBC Auto 0.0 /100 WBC (0.0-0.2); Platelet Count 205 K/mm3 (150-400); RDW Coefficient Variation 13.2 % (11.7-14.2); RDW Standard Deviation 41.4 fL (35.1-46.3)
[2025-02-22 04:47] LABS: Alanine Aminotransfer (ALT/SGP 21.0 U/L (12-78); Albumin, Blood 2.2 g/dL (3.4-5.0); Albumin/Globulin Ratio 0.4 (0.8-1.8); Anion Gap 11.0 mmol/L (3-11); Aspartate Aminotrans (AST/SGOT 15.0 U/L (12-37); Bilirubin, Direct 0.2 mg/dL (0.0-0.3); Bilirubin, Indirect 0.1 mg/dL (0.1-0.7); Bilirubin, Total 0.3 mg/dL (0.1-1.0); Blood Urea Nitrogen 40.0 mg/dL (8-24); CO2, Blood 22.0 mmol/L (21-32); Calcium, Blood 8.0 mg/dL (8.5-10.1); Chloride, Blood 107.0 mmol/L (98-108); Creatinine, Blood 5.19 mg/dL (0.40-1.00); Globulin, Blood 4.9 g/dL (2.2-4.0); Glucose, Blood 195.0 mg/dL (70-99); Magnesium, Blood 1.7 mg/dL (1.6-2.4); Phosphorus, Blood 5.9 mg/dL (2.5-4.9); Potassium, Blood 3.7 mmol/L (3.5-5.5); Sodium, Blood 136.0 mmol/L (136-145); Total Protein, Blood 7.1 g/dL (6.4-8.2)
--- NOTE | 2025-02-22 05:55 | NUR ---
SHIFT SUMMARY: PATIENT IS A&OX4, SOMETIMES FORGOT WHY SHE NEEDED THE BIPAP ON BUT WAS EASILY REEDUCATED/REORIENTED ON WHY AND WOULD VERBALIZED UNDERSTANDING OF EDUCATION. TELE SHOWS SINUS TACH IN THE 100'S TO 110'S BPM. PAIN IS MANAGED WITH PO NORCO PER JUL AND ICE PACK APPLIED INTERMITTENTLY WITH EXTREMITY ELEVATED ON PILLOWS. WHEN ASLEEP PATIENT IS ON BIPAP WITH 3L OXYGEN BLEED IN, BUT WHILE AWAKE PATIENT IS ON ROOM AIR WITH >90% SPO2. OTHER VITALS ARE STABLE. PATIENT DID HAVE X1 NAUSEA/VOMITING EPISODE BUT HAS BEEN MANAGED WITH IV ZOFRAN PER JUL - IT SHOULD BE NOTED PATIENT HAS NOT HAD A BM CHARTED IN 3 OR 4 DAYS PER I&O'S AND NO STOOL SOFTENERS ORDERED IN JUL. BOURNE IS DRAINING TO GRAVITY YELLOW URINE OUTPUT - 24 HOUR URINE COLLECTION WAS STARTED AT 0500 THIS MORNING PER ORDERS. BICARB GTT RUNNING AT 50ML/HR PER JUL. PATIENT IS LAYING IN BED WITH CALL LIGHT IN REACH.
[2025-02-22] MEDS ORDERED: Insulin Glargine 100 Unit/ML 3 ML SYR SC SCH (09:00)
--- NOTE | 2025-02-22 12:15 | NUR ---
UPDATE ORTHO CONTACTED PER MD REQUEST FOR UPDATE TO WEIGHT BERRING ORDER AND TO SEE IF A SPLINT IS NEEDING TO BE PLACED. ORTHO TO REVIEW CHART AND SEE PT TODAY.
--- NOTE | 2025-02-22 13:03 | NUR ---
UPDATE MELITA PT SIGNIFICANT OTHER, CONTACTED AND UPDATED PER REQUEST.
[2025-02-22 13:37] LABS: pH Blood Venous 7.35 (7.34-7.37)
[2025-02-22] MEDS ORDERED: Metoprolol Tartrate 1 MG/ML 5 ML VIAL IV PRN (15:40)
[2025-02-22] MEDS ORDERED: Magnesium Hydroxide Conc 10 ML UDC PO PRN (16:00)
--- NOTE | 2025-02-22 18:24 | NUR ---
SHIFT [employer] PT A/OX4 AND COOPERATIVE OF CARE. PT ABLE TO EXPRESS NEEDS AND CALLED APPROPIATELY. PT VSS THROUGHOUT SHIFT WITH O2 SATS IN THE 90'S ON RA. NO RPEORT OF CHEST PAIN/PRESSURE THROUGHOUT HSIFT. NO REPORT OF SOB/DYSPNEA THROUGHOUT SHIFT. PT SEEN BY ORTHO TODAY, SPLINT IN PLACE. ORTHO SAID NON WEIGHT BEARING ORDERED. PT BLOOD SUGARS IMPROVED DURING THIS SHIFT, SEE LABS. PT REFUSED SOME Q2 TURBS THIS SHIFT, PT REPORTED THAT THE PAIN IS TOO MUCH. PT REPORTED PAIN DURING SHIFT, TREATED PER EMAR. 24 HR URINE RENAINS IN PACE, URINE IN RED JUGS, ON ICE, AND IN BATHROOM.
[2025-02-23] VITALS (7 sets, daily range): BP systolic 156–178; BP diastolic 75–94
[2025-02-23 05:05] LABS: BASOPHILS ABSOLUTE AUTO 0.02 K/mm3 (0.00-0.23); BASOPHILS PERCENT AUTO 0 % (0-2); EOSINOPHILS ABSOLUTE AUTO 0.18 K/mm3 (0.00-0.68); EOSINOPHILS PERCENT AUTO 2 % (0-6); Hematocrit 31.7 % (33.0-51.0); Hemoglobin 10.5 g/dL (11.5-16.0); IMMATURE GRAN ABSOLUTE AUTO 0.09 K/mm3 (0.00-0.10); IMMATURE GRAN PERCENT AUTO 1 % (0-1); LYMPHOCYTES ABSOLUTE AUTO 1.94 K/mm3 (0.84-5.20); LYMPHOCYTES PERCENT AUTO 26 % (21-46); MONOCYTES ABSOLUTE AUTO 0.80 K/mm3 (0.16-1.47); MONOCYTES PERCENT AUTO 11 % (4-13); Mean Corpuscular HGB Conc 33.1 g/dL (31.5-36.5); Mean Corpuscular Volume 88 fL (80-100); NEUTROPHILS ABSOLUTE AUTO 4.43 K/mm3 (1.96-9.15); NEUTROPHILS PERCENT AUTO 59 % (41-73); NRBC ABSOLUTE 0.00 K/mm3 (0.00-0.02); NRBC Auto 0.0 /100 WBC (0.0-0.2); Platelet Count 207 K/mm3 (150-400); RDW Coefficient Variation 13.0 % (11.7-14.2); RDW Standard Deviation 42.2 fL (35.1-46.3)
--- NOTE | 2025-02-23 05:32 | NUR ---
SHIFT SUMMARY PATIENT A/OX4. PLEASANT AND COOPERATIVE WITH CARE. FLAT AFFECT AT BEGINNING OF SHIFT THAT SEEMED TO GO AWAY AFTER RAPPORT WAS ESTABLISHED. PATIENT TURNED PERIODICALLY IN BED AND WAS ABLE TO ASSIST IN MOBILIZING IN BED. PATIENT MEDICATED Q4 PRN WITH 2 TABS OR NORCO 5/325 FOR R LEG PAIN AND GENERALIZED PAIN. FREQUENTLY REPORTING 10/10 PAIN. AT END OF SHIFT, PATIENT WAS NOT ABLE TO TOLERATE WAITING UNTIL NEXT DOSE AND PROVIDER WAS NOTIFIED. AWAITING ORDERS AT THIS TIME. LS CTA, SR-ST ON MONITOR 90-100'S. PATIENT ELENI PO INTAKE. 24 HOUR URINE COMPLETED AND SPECIMEN DELIVERED TO LAB. PATIENT DID NOT SLEEP MUCH DURING SHIFT BUT DID UTILIZE CPAP. CALL LIGHT REMAINED IN REACH, BUT PATIENT DID NOT UTILIZE AT ALL DURING SHIFT. BED IN LOWEST POSITION. PLAN OF CARE ONGOING.
[2025-02-23] MEDS ORDERED: HYDROmorphone HCl/Pf 1MG SYR IV PRN (05:45)
[2025-02-23 06:58] LABS: Albumin, Blood 2.1 g/dL (3.4-5.0); Anion Gap 13 mmol/L (3-11); Blood Urea Nitrogen 37 mg/dL (8-24); CO2, Blood 23 mmol/L (21-32); Calcium, Blood 8.2 mg/dL (8.5-10.1); Chloride, Blood 106 mmol/L (98-108); Creatinine, Blood 4.73 mg/dL (0.40-1.00); Glucose, Blood 147 mg/dL (70-99); Magnesium, Blood 1.6 mg/dL (1.6-2.4); Phosphorus, Blood 5.3 mg/dL (2.5-4.9); Potassium, Blood 3.5 mmol/L (3.5-5.5); Sodium, Blood 138 mmol/L (136-145)
[2025-02-23 07:31] LABS: Protein, Urine Quantitative 55.4 mg/dL (0.0-11.9)
--- NOTE | 2025-02-23 19:08 | NUR ---
SHIFT SUMMARY PT A/OX4 AND COOERATIVE OF MOST CARE, REFUSING SOME TURNS DUE TO PAIN. PT ABLE TO EXPRESS NEEDS AND CALLED APPROPIATE. PT BP ELVATED BUT STABLE. OTHER VSS THROUGHOUT HSIFT WITH O2 SATS IN THE 90'S ON RA. NO REPORT OF CHEST PAIN/PRESSURE. NO REPORT OF SOB/DYSPNEA. PT SEEN BY THERAPY TODAY, SEE THERAPIST NOTES. PT PAIN BETTER MANAGED TODAY. PT BLOOD SUGARS IN THE 100-200'S TODAY, INSULIN COVERAGE PER [facility]. BOURNE REMAINED ON PLACE AND PATENT.
[2025-02-24] VITALS (12 sets, daily range): BP systolic 149–207; BP diastolic 62–112
[2025-02-24] MEDS ORDERED: Lidocaine 4% 1 Patch TOP ONE (01:35)
--- NOTE | 2025-02-24 01:45 | NUR ---
UPDATE PATIENT C/O INCREASING PAIN IN R LEG. MEDICATED AT 2339 WITH NORCO 10/325MG PO. DISCUSSED NON-PHARMACOLOGIC PAIN MANAGEMENT STRATEGIES WITH PATIENT. PATIENT NOT WANTING TO REPOSITION AT THIS TIME. PATIENT IS TEARFUL AND WANTING SOMETHING FOR BREAKTHROUGH PAIN. CALLED RESIDENT, DR GOODWIN AND DISCSUSSED WITH HER. RECEIVED ORDER FOR LIDOCAINE PATCH.
[2025-02-24 04:20] LABS: BASOPHILS ABSOLUTE AUTO 0.02 K/mm3 (0.00-0.23); BASOPHILS PERCENT AUTO 0 % (0-2); EOSINOPHILS ABSOLUTE AUTO 0.16 K/mm3 (0.00-0.68); EOSINOPHILS PERCENT AUTO 2 % (0-6); Hematocrit 29.8 % (33.0-51.0); Hemoglobin 9.9 g/dL (11.5-16.0); IMMATURE GRAN ABSOLUTE AUTO 0.08 K/mm3 (0.00-0.10); IMMATURE GRAN PERCENT AUTO 1 % (0-1); LYMPHOCYTES ABSOLUTE AUTO 1.82 K/mm3 (0.84-5.20); LYMPHOCYTES PERCENT AUTO 23 % (21-46); MONOCYTES ABSOLUTE AUTO 0.68 K/mm3 (0.16-1.47); MONOCYTES PERCENT AUTO 8 % (4-13); Mean Corpuscular HGB Conc 33.2 g/dL (31.5-36.5); Mean Corpuscular Volume 88 fL (80-100); NEUTROPHILS ABSOLUTE AUTO 5.30 K/mm3 (1.96-9.15); NEUTROPHILS PERCENT AUTO 66 % (41-73); NRBC ABSOLUTE 0.00 K/mm3 (0.00-0.02); NRBC Auto 0.0 /100 WBC (0.0-0.2); Platelet Count 204 K/mm3 (150-400); RDW Coefficient Variation 12.8 % (11.7-14.2); RDW Standard Deviation 41.0 fL (35.1-46.3)
--- NOTE | 2025-02-24 05:06 | NUR ---
SHIFT SUMMARY PATIENT A/OX4. MOOD OVERALL IMPROVING. PATIENT ABLE TO MAKE NEEDS KNOWN. MEDICATED WITH PRN NORCO FOR RIGHT LEG PAIN APPROX EVERY 4 HOURS. PAIN NOT WELL CONTROLLED. LIDOCAINE PATCH ADDED TO R LEG WITH MINIMAL CHANGE IN PAIN LEVEL. DISCUSSED PAIN CONTROL GOALS AND EXPECTATIONS WITH PATIENT. SHE REPORTED THAT HER GOAL IS TO HAVE NO PAIN. EDUCATED HER THAT PAIN MEDICATION IS INTENDED TO REDUCE PAIN, NOT NECESSARILY ELIMINATE. SHE VERBALIZED UNDERSTANDING. PATIENT TURNED PERIODICALLY IN BED AND ABLE TO MOVE HER UPPER BODY WITH MINAMAL ASSISTANCE. GOOD ORAL INTAKE AND URINE OUTPUT. NO RESP DISTRESS. WORE CPAP ONLY SHORT PERIOD, BUT WAS AWAKE MOST OF SHIFT. OVERALL PATIENT APPRECIATIVE OF CARE. CALL LIGHT IN REACH, BED IN LOWEST POSITION, PLAN OF CARE ONGOING.
[2025-02-24] MEDS ORDERED: Labetalol HCL 5 MG/ML 4ML Injection (Single Dose) IV PRN (08:25)
[2025-02-24 10:10] LABS: Albumin, Blood 2.2 g/dL (3.4-5.0); Anion Gap 13 mmol/L (3-11); Blood Urea Nitrogen 38 mg/dL (8-24); CO2, Blood 25 mmol/L (21-32); Calcium, Blood 8.1 mg/dL (8.5-10.1); Chloride, Blood 103 mmol/L (98-108); Creatinine, Blood 3.75 mg/dL (0.40-1.00); Glucose, Blood 183 mg/dL (70-99); Phosphorus, Blood 4.8 mg/dL (2.5-4.9); Potassium, Blood 3.5 mmol/L (3.5-5.5); Sodium, Blood 137 mmol/L (136-145)
[2025-02-24 11:20] LABS: GBM, IGG MULTIPLEX BEAD ASSAY 0 AU/mL (0-19); MYELOPEROXIDASE (MPO) AB,IGG 0 AU/mL (0-19); SERINE PROTEINASE 3 PR3 AB,IGG 1 AU/mL (0-19)
[2025-02-24] MEDS ORDERED: DULoxetine HCL 60 MG Capsule DR PO SCH (12:30)
[2025-02-24] MEDS ORDERED: Miconazole Nitrate 2% 85 GM PWD TOP SCH (14:00)
--- NOTE | 2025-02-24 16:34 | NUR ---
SHIFT NOTE: PT A/OX4 MORE ALERT AND RESPONDING WELL TO STAFF. SHE IS SITTING IN BED, SMILING AND INTERACTING WITH STAFF. PAIN MANAGEMENT DISCUSSED WITH MD AND ORDERS CHANGED TO OXYCODONE. PT REPORTS IMPROVED PAIN MANAGEMENT. PT ON RA WHEN AWAKE BUT NEEDING 2L NC WHEN SLEEPING TO MAINTAIN SPO2>90%. SBP HAS BEEN ELEVATED, MD AWARE AND ORDERED LABATALOL. LABATALOL GIVEN TWICE T/O DAY WITH GOOD EFFECT. PT'S HOME MEDS ORDERED WELL. PT HAS HAD GOOD PO INTAKE AND OUTPUT. SHE HAS HAD LARGE BM THIS SHIFT, AND URINE CONTINUES TO DRAIN TO GRAVITY IN BOURNE CATH. PT HAS BEEN REPOSITIONED BY STAFF AND SOME BY HER SELF WITH HER RIGHT LEG IMMOBILIZER IN PLACE. CALL LIGHT IN REACH, PT CALLS APPROPRIATELY. CARE CONTINUES
[2025-02-25] VITALS (9 sets, daily range): BP systolic 140–185; BP diastolic 80–108
[2025-02-25 05:06] LABS: BASOPHILS ABSOLUTE AUTO 0.02 K/mm3 (0.00-0.23); BASOPHILS PERCENT AUTO 0 % (0-2); EOSINOPHILS ABSOLUTE AUTO 0.19 K/mm3 (0.00-0.68); EOSINOPHILS PERCENT AUTO 2 % (0-6); Hematocrit 29.9 % (33.0-51.0); Hemoglobin 10.0 g/dL (11.5-16.0); IMMATURE GRAN ABSOLUTE AUTO 0.08 K/mm3 (0.00-0.10); IMMATURE GRAN PERCENT AUTO 1 % (0-1); LYMPHOCYTES ABSOLUTE AUTO 1.73 K/mm3 (0.84-5.20); LYMPHOCYTES PERCENT AUTO 22 % (21-46); MONOCYTES ABSOLUTE AUTO 0.62 K/mm3 (0.16-1.47); MONOCYTES PERCENT AUTO 8 % (4-13); Mean Corpuscular HGB Conc 33.4 g/dL (31.5-36.5); Mean Corpuscular Volume 87 fL (80-100); NEUTROPHILS ABSOLUTE AUTO 5.26 K/mm3 (1.96-9.15); NEUTROPHILS PERCENT AUTO 67 % (41-73); NRBC ABSOLUTE 0.00 K/mm3 (0.00-0.02); NRBC Auto 0.0 /100 WBC (0.0-0.2); Platelet Count 212 K/mm3 (150-400); RDW Coefficient Variation 12.7 % (11.7-14.2); RDW Standard Deviation 40.5 fL (35.1-46.3)
[2025-02-25 05:28] LABS: Albumin, Blood 2.3 g/dL (3.4-5.0); Anion Gap 9 mmol/L (3-11); Blood Urea Nitrogen 40 mg/dL (8-24); CO2, Blood 26 mmol/L (21-32); Calcium, Blood 8.5 mg/dL (8.5-10.1); Chloride, Blood 101 mmol/L (98-108); Creatinine, Blood 2.93 mg/dL (0.40-1.00); Glucose, Blood 371 mg/dL (70-99); Magnesium, Blood 1.7 mg/dL (1.6-2.4); Phosphorus, Blood 3.9 mg/dL (2.5-4.9); Potassium, Blood 3.9 mmol/L (3.5-5.5); Sodium, Blood 132 mmol/L (136-145)
--- NOTE | 2025-02-25 06:31 | NUR ---
SHIFT SUMMARY NO SIGNIFICANT EVENTS OVERNIGHT. MENTAL STATUS UNCHANGED. MOOD IMPROVING. PATIENT COOPERATIVE WITH CARE. PATIENT MEDICATED PRN FOR R LEG PAIN. CONSISTENTLY REPORTED 9-10/10 PAIN LEVEL ALTHOUGH FLACC AND FACE SCALE SCORED LOWER. REINFORCED IMPORTANCE OF NON-PHARMACOLOGICAL PAIN CONTROL METHODS. PATIENT VERBALIZED UNDERSTANDING. PATIENT WORE CPAP FOR SHORT PERIOD WHILE SLEEPING, BUT WAS AWAKE MUCH OF THE NIGHT. GOOD INTAKE AND URINE OUTPUT. PATIENT HAD LARGE BM. PLAN OF CARE ONGOING.
--- NOTE | 2025-02-25 08:15 | NUR ---
ASSUMPTION NOTE: THIS RN TO ASSUME CARE OF PATIENT. PATIENT IS ALERT AND ORIENTED X4, SLOW TO RESPOND AT TIMES. PATIENT DENIED ANY CHEST PAIN/PRESSURE. PATIENT GIVEN MORNING MEDICATIONS AND INSULN PER SLIIDNG SCALE AND ORDERS. PATIENT GIVEN BREAKFAST,SITITNG UP IN BED IN LOWEST LOCKED POSITION & STATING NOTHING ELSE IS NEEDED AT THIS TIME.
[2025-02-25] MEDS ORDERED: DULoxetine HCL 60 MG Capsule DR PO SCH (09:00)
[2025-02-25] MEDS ORDERED: Insulin Glargine 100 Unit/ML 3 ML SYR SC ONE (11:00)
[2025-02-25] MEDS ORDERED: HydrALAZINE HCl 20 MG / ML 1ML Vial IV PRN (11:40)
--- NOTE | 2025-02-25 11:47 | NUR ---
MD ROUNDED: MD ROUNDED AND SPOKE WITH PATIENT REGARDING ADDING NEW MEDICATIONS FOR BLOOD PRESUSRE IT CONTINUES TO BE ELEVATED. MD GAVE VERBAL ORDER TO REMOVE BOURNE & PLACE A PUREWICK INSTEAD. PATIENT AWARE WE WILL DO THAT & START SOME NEW MEDICATIONS.
[2025-02-25 12:08] LABS: ANTINUCLEAR AB (ANA),HEP-2,IGG Detected (<1:80)
--- NOTE | 2025-02-25 17:12 | NUR ---
SHIFT SUMMARY: PATIENT IS ALERT AND ORIENTE X4, SLOW TO RESPOND AT TIMES. SATTING >92% ON ROOM AIR. PATIENT IS ON TELE SHOWING SINUS RYTHM IN 90'S. PATIENT'S BOURNE WAS DISCONTINUED TODAY, DID BLADDER SCAN AND PATIENT RETAINED 950 UPON STRAIGHT CATH. MD STARTED VAGINCAL ANTIBIOTICS AFTER PULLING IT, SEE EMAR. PATIENT WAS MEDICATED WITH PAIN MEDICATIONS THROUGOUT SHIFT FOR LEG/NEUROPAHTY PAIN. FAMILY CALLED THROUGHOUT SHIFT AND TALKED WITH PATIENT. PATIENT ENCOURAGED TO GET TO THE CHAIR TODAY BUT DECLINED. BLOOD SUGARS CONITNUED TO BE ELEVATED THRUGOUT SHIFT AND SOME CHANGES WERE MADE TO MEDICATIONS BEING GIVEN. PATIENT WAS ABLE TO GET SOME REST THORUHGOUT SHIFT. CURRENTLY WATHCING TV, STATNING NOTHING ELSE IS NEEDED, BED IN LOWEST LOCKED POSITION & CALL LIGHT WITHIN REACH.
[2025-02-25] MEDS ORDERED: Insulin Glargine-Yfgn 100 Unit/mL 3 ML SYR SC SCH (21:00)
[2025-02-25] MEDS ORDERED: Insulin Glargine 100 Unit/ML 3 ML SYR SC SCH (21:00)
[2025-02-25] MEDS ORDERED: Miconazole 2% Vaginal Cream 45 GM VAG SCH (21:00)
[2025-02-26 03:23] VITALS: BP 151/83
[2025-02-26 04:03] LABS: BASOPHILS ABSOLUTE AUTO 0.02 K/mm3 (0.00-0.23); BASOPHILS PERCENT AUTO 0 % (0-2); EOSINOPHILS ABSOLUTE AUTO 0.23 K/mm3 (0.00-0.68); EOSINOPHILS PERCENT AUTO 3 % (0-6); Hematocrit 33.3 % (33.0-51.0); Hemoglobin 10.9 g/dL (11.5-16.0); IMMATURE GRAN ABSOLUTE AUTO 0.08 K/mm3 (0.00-0.10); IMMATURE GRAN PERCENT AUTO 1 % (0-1); LYMPHOCYTES ABSOLUTE AUTO 2.28 K/mm3 (0.84-5.20); LYMPHOCYTES PERCENT AUTO 26 % (21-46); MONOCYTES ABSOLUTE AUTO 0.60 K/mm3 (0.16-1.47); MONOCYTES PERCENT AUTO 7 % (4-13); Mean Corpuscular HGB Conc 32.7 g/dL (31.5-36.5); Mean Corpuscular Volume 89 fL (80-100); NEUTROPHILS ABSOLUTE AUTO 5.51 K/mm3 (1.96-9.15); NEUTROPHILS PERCENT AUTO 63 % (41-73); NRBC ABSOLUTE 0.00 K/mm3 (0.00-0.02); NRBC Auto 0.0 /100 WBC (0.0-0.2); Platelet Count 230 K/mm3 (150-400); RDW Coefficient Variation 12.7 % (11.7-14.2); RDW Standard Deviation 41.3 fL (35.1-46.3)
[2025-02-26 04:22] LABS: Anion Gap 8.0 mmol/L (3-11); Blood Urea Nitrogen 40.0 mg/dL (8-24); CO2, Blood 28.0 mmol/L (21-32); Calcium, Blood 8.8 mg/dL (8.5-10.1); Chloride, Blood 102.0 mmol/L (98-108); Creatinine, Blood 2.24 mg/dL (0.40-1.00); Glucose, Blood 282.0 mg/dL (70-99); Potassium, Blood 4.0 mmol/L (3.5-5.5); Sodium, Blood 134.0 mmol/L (136-145)
--- NOTE | 2025-02-26 05:36 | NUR ---
ASSUMED CARE OF PT AT 1900. PT AWAKE AND ORIENTED X 4, ABLE TO USE CALL LIGHT APPROPRIATELY. PT HAS BEEN UNABLE TO VOID INDEPENDENTLY SINCE BOURNE WAS REMOVED IN THE AM. PT HAD TO BE SC TWICE ON . AT 2200, BLADDER SCAN SHOWED VOLUME > 800ML. MD NOTIFIED AND NEW ORDERS RECIEVED TO PLACE BOURNE. BOURNE WAS INSERTED WITH IMMEDIATE OUTPUT OF 1200ML. PT HAS NOT REQUIRED ANY PRN BP MEDICATIONS THIS SHIFT. ALL VSS. PAIN MEDICATION ADMINISTERED PRN. BED IN LOWEST POSITION AND CALL LIGHT WITHIN REACH.
[2025-02-26 07:55] VITALS: BP 175/89
--- NOTE | 2025-02-26 10:35 | NUR ---
MD ROUNDED: MD ROUNDED AND PATIENT AWARE SHE IS NOW MEDICAL STATUS WITHOUT TELE & PATIENT AWARE. MD TO DIG INTO HISTORY REGARDING PATIENTS SPINAL INJURY & WHETHER OR NOT SHE WAS ON LITHIUM. MD AWARE THAT BOURNE WAS REPLACED LAST NIGHT WELL.
[2025-02-26 11:17] VITALS: BP 141/79
--- NOTE | 2025-02-26 14:48 | NUR ---
TRANSFER SUMMARY: PATIENT IS ALERT AND OREITNED X4 & COOPERATIVE WITH HER CARE, IS ABLE TO MAKE NEESD KNOWN, DOES ANSWER SLOWLY. PATIENT SATTING >92% ON ROOM AIR. PATIENT BELONGINGS TAKEN UP WITH HER AND REPORT WAS GIVEN PRIOR TO TRANSFFERING. FAMILY AT BEDSIDE PRIOR TO LEAVING PCU AND WAS MADE AWARE OF THE CHAGNE IN ROOM.
--- NOTE | 2025-02-26 15:07 | NUR ---
Report received from PENELOPE Livingston. Patient transported via bed to room 337 from PCU. Patient oriented to room, call light upon arrival. Patient denied pain, SOB, CP, N/V/D at this time. Vidal catheter in place and draining yellow urine. Call light within reach, bed in lowest position.
[2025-02-26 16:41] VITALS: BP 151/78
--- NOTE | 2025-02-26 17:14 | NUR ---
ENd of shift summary: Patient is alert and oriented x4; pleasant and cooperative with care. Patient with no acute changes since arrival to room. All medications administered per EMAR. Patient denies SOB, CP, N/V/D and has minimal pain at this time. Vidal catheter in place and draining yellow urine. Utilizing call light appropriately; call light within reach and bed in lowest position. Will continue to monitor until next shift nurse arrives and report is given.
[2025-02-26 19:30] VITALS: BP 149/78
[2025-02-26] MEDS ORDERED: NS 250 ML IV PRN (20:20)
[2025-02-27] VITALS (7 sets, daily range): BP systolic 148–187; BP diastolic 80–99
--- NOTE | 2025-02-27 00:05 | NUR ---
GAVER REPORT TO [facility]G RYAN FOR TRANSFER OF CARE @ [id number].
--- NOTE | 2025-02-27 04:39 | NUR ---
CALL PLACED TO MD: CALL PLACED TO REGARDING BLOOD PRESSURE. PT WAS GIVEN APRESOLINE FOR BP OVER 160. VS RECHECKED AND BP WAS 165/80. ORDERS FOR LABETOL BUT CARDIAC MONITORING REQUIRED. MD CALLED AND DR. CLARKE STATED TO HOLD LABETOL AND CARDIAC MONITORING DUE TO NOT WANTING TO DROP PTS BP TO LOW.
--- NOTE | 2025-02-27 04:49 | NUR ---
SHIFT SUMMARY: PT IS AOX4. PT HAD SEVERAL SNACKS THROUGH OUT THE NIGHT. PT EDUCATED ON MAINTAING A DIABETIC DIET. PT MEDICATED PER EMAR. NO ACUTE CHANGES THIS SHIFT.
[2025-02-27 05:56] LABS: BASOPHILS ABSOLUTE AUTO 0.03 K/mm3 (0.00-0.23); BASOPHILS PERCENT AUTO 0 % (0-2); EOSINOPHILS ABSOLUTE AUTO 0.23 K/mm3 (0.00-0.68); EOSINOPHILS PERCENT AUTO 3 % (0-6); Hematocrit 30.0 % (33.0-51.0); Hemoglobin 10.0 g/dL (11.5-16.0); IMMATURE GRAN ABSOLUTE AUTO 0.05 K/mm3 (0.00-0.10); IMMATURE GRAN PERCENT AUTO 1 % (0-1); LYMPHOCYTES ABSOLUTE AUTO 2.81 K/mm3 (0.84-5.20); LYMPHOCYTES PERCENT AUTO 31 % (21-46); MONOCYTES ABSOLUTE AUTO 0.58 K/mm3 (0.16-1.47); MONOCYTES PERCENT AUTO 6 % (4-13); Mean Corpuscular HGB Conc 33.3 g/dL (31.5-36.5); Mean Corpuscular Volume 89 fL (80-100); NEUTROPHILS ABSOLUTE AUTO 5.40 K/mm3 (1.96-9.15); NEUTROPHILS PERCENT AUTO 59 % (41-73); NRBC ABSOLUTE 0.00 K/mm3 (0.00-0.02); NRBC Auto 0.0 /100 WBC (0.0-0.2); Platelet Count 247 K/mm3 (150-400); RDW Coefficient Variation 12.9 % (11.7-14.2); RDW Standard Deviation 41.4 fL (35.1-46.3)
[2025-02-27 06:17] LABS: Albumin, Blood 2.3 g/dL (3.4-5.0); Anion Gap 7 mmol/L (3-11); Blood Urea Nitrogen 40 mg/dL (8-24); CO2, Blood 27 mmol/L (21-32); Calcium, Blood 8.9 mg/dL (8.5-10.1); Chloride, Blood 103 mmol/L (98-108); Creatinine, Blood 1.96 mg/dL (0.40-1.00); Glucose, Blood 300 mg/dL (70-99); Magnesium, Blood 1.6 mg/dL (1.6-2.4); Phosphorus, Blood 3.0 mg/dL (2.5-4.9); Potassium, Blood 3.7 mmol/L (3.5-5.5); Sodium, Blood 133 mmol/L (136-145)
--- NOTE | 2025-02-27 17:33 | NUR ---
SHIFT SUMMARY PT AOX4, COOPERATIVE, ABLE TO MAKE NEEDS KNOWN. PT HAS BEEN BEDREST FOR DURATION OF SHIFT. TOLERATING MEDICATIONS. ON ROOM AIR, NO TELE. PT RATES 10/10 RLE PAIN, MEDICATING PER EMAR. DID ORDER MRI, WHICH WE TRANSFERRED DOWN TO IMAGING. AFTER MEASURING MRI COMPARED TO PT, TRANSFORMER ASSEMBLER AND THIS RN AGREED INPATIENT MRI WOULD BE IMPOSSIBLE. THIS RN INQUIRED IF POSSIBLE TO GO FEET FIRST AN ATTEMPT TO GET PT LUMBAR IMAGES, TRANSFORMER ASSEMBLER REPORTS ONLY HEAD FIRST AVAILABLE. THE PT FINALLY REFUSED TO ATTEMPT TO PERFORM PROCEDURE AND WE BROUGHT PT BACK TO ROOM. ALL SHIFT, PT HAS HAD FLAT EFFECT, SLOW TO RESPOND, AND UNINTERESTED. BLOOD SUGARS HAVE BEEN AROUND 250ISH. THIS RN HAS DENIED PT SUGAR DURING AFTERNOON/EVENING TIME EDUCATED PT ABOUT BLOOD SUGAR LEVELS AND EFFECTS ON INFECTION CONTROL. BED IN LOWEST POSITION, CALL LIGHT WITHIN REACH.
[2025-02-27] MEDS ORDERED: Insulin Glargine 100 Unit/ML 3 ML SYR SC SCH (21:00)
[2025-02-28 03:53] VITALS: BP 153/75
[2025-02-28 06:03] LABS: Hematocrit 34.8 % (33.0-51.0); Hemoglobin 11.1 g/dL (11.5-16.0)
--- NOTE | 2025-02-28 06:16 | NUR ---
SHIFT SUMMARY: Pt is admitted for LEA/ DKA and is a full code. Is alert and able to make needs known. ADLs have been a mix of 1-2p depending on activity but did not get out of bed. Pain has been managed with PRN medications. IV to right forearm is patent with dressing that is CDI. pedraza in place and draining clear yellow urine.
[2025-02-28 06:23] LABS: Albumin, Blood 2.6 g/dL (3.4-5.0); Anion Gap 9 mmol/L (3-11); Blood Urea Nitrogen 35 mg/dL (8-24); CO2, Blood 28 mmol/L (21-32); Calcium, Blood 8.8 mg/dL (8.5-10.1); Chloride, Blood 104 mmol/L (98-108); Creatinine, Blood 1.71 mg/dL (0.40-1.00); Glucose, Blood 195 mg/dL (70-99); Magnesium, Blood 1.7 mg/dL (1.6-2.4); Phosphorus, Blood 4.0 mg/dL (2.5-4.9); Potassium, Blood 4.0 mmol/L (3.5-5.5); Sodium, Blood 137 mmol/L (136-145)
[2025-02-28 07:21] VITALS: BP 183/91
[2025-02-28] MEDS ORDERED: Alogliptin Benzoate 25 MG TAB PO SCH (09:00)
[2025-02-28] MEDS ORDERED: Insulin Glargine 100 Unit/ML 3 ML SYR SC SCH (09:00)
[2025-02-28 10:32] VITALS: BP 131/77
[2025-02-28 15:48] LABS: ALBUMIN %,URINE 16.8 %; ALPHA-1 %,URINE 15.2 %; ALPHA-2 %,URINE 22.0 %; BETA GLOBULIN %,URINE 30.1 %; GAMMA GLOBULIN %,URINE 15.9 %; HOURS COLLECTED 24 hr; PARAPROTEIN %,URINE 0.0 %; PARAPROTEIN EXCRETION/24 HOUR 0.0
--- NOTE | 2025-02-28 15:54 | NUR ---
SHIFT SUMMARY PT AOX4, COOPERATIVE, ABLE TO MAKE NEEDS KNOWN. PT IS BEDREST FOR THE SHIFT. PT REQUEST TO MOVE TO LIFT ROOM, CLINICAL SOCIAL WORK AIDE AWARE. CATHETER INTACT AND WILL DC WITH IT. TOLERATING MEDICATIONS. PT CBG DOING BETTER. PT STILL HAS FLAT EFFECT STILL. SUPPOSED TO DC TO SNF WHEN APPROVED. BED IN LOWEST POSITION, CALL LIGHT WITHIN REACH.
[2025-02-28 16:22] VITALS: BP 134/56
[2025-02-28 20:12] VITALS: BP 126/72
[2025-03-01 05:19] LABS: Hematocrit 31.4 % (33.0-51.0); Hemoglobin 10.1 g/dL (11.5-16.0)
[2025-03-01 05:52] VITALS: BP 109/70
[2025-03-01 05:52] LABS: Albumin, Blood 2.5 g/dL (3.4-5.0); Anion Gap 8 mmol/L (3-11); Blood Urea Nitrogen 36 mg/dL (8-24); CO2, Blood 28 mmol/L (21-32); Calcium, Blood 8.9 mg/dL (8.5-10.1); Chloride, Blood 103 mmol/L (98-108); Creatinine, Blood 1.47 mg/dL (0.40-1.00); Glucose, Blood 182 mg/dL (70-99); Magnesium, Blood 1.8 mg/dL (1.6-2.4); Phosphorus, Blood 4.1 mg/dL (2.5-4.9); Potassium, Blood 3.9 mmol/L (3.5-5.5); Sodium, Blood 135 mmol/L (136-145)
[2025-03-01 07:32] VITALS: BP 152/90
[2025-03-01] MEDS ORDERED: OXAYDO5 M1 PO (10:27)
--- NOTE | 2025-03-01 13:57 | NUR ---
1352-DC PT PICKED UP BY TRANSPORT VIA WC. PT LEFT WITH ALL BELONGINGS. REPORT GIVEN TO [facility] NURSE VIVIANE. ALL QUESTIONS ANSWERED. HARD SCRIPT FOR OXY IR IN PT'S PACKET UPON DC.
== END 2025-03-01 14:31 | DRG 682 ==
LOC: ER 14:58 → PCU 17:37 → ICUE 17:37 → PCU 02-18 15:54 → MEDS 02-20 23:42 → PCU 02-21 17:19 → MEDS 02-26 14:31
PROVIDERS: Emergency Medicine; Family Medicine; Internal Medicine Nephrology; Nurse Practitioner Acute Care; ADMIT Internal Medicine
PROC: 3E03329 Introduction of Other Anti-infective into Peripheral Vein, Percutaneous Approach (ICD-10-PCS; principal; 2025-02-17)
PROC: 5A09357 Assistance with Respiratory Ventilation, Less than 24 Consecutive Hours, Continuous Positive Airway Pressure (ICD-10-PCS; 2025-02-17)
PROC: 0T9B70Z Drainage of Bladder with Drainage Device, Via Natural or Artificial Opening (ICD-10-PCS; 2025-02-17)
PROC: 3E033XZ Introduction of Vasopressor into Peripheral Vein, Percutaneous Approach (ICD-10-PCS; 2025-02-17)
DX: N17.0 Acute kidney failure with tubular necrosis (principal); E11.10 Type 2 diabetes mellitus with ketoacidosis without coma; G93.41 Metabolic encephalopathy; S82.141A Displaced bicondylar fracture of right tibia, initial encounter for closed fracture; G82.20 Paraplegia, unspecified; N39.0 Urinary tract infection, site not specified; E87.1 Hypo-osmolality and hyponatremia; E87.4 Mixed disorder of acid-base balance; Z68.44 Body mass index [BMI] 60.0-69.9, adult; Z99.3 Dependence on wheelchair; F31.9 Bipolar disorder, unspecified; R33.9 Retention of urine, unspecified; E11.65 Type 2 diabetes mellitus with hyperglycemia; E66.01 Morbid (severe) obesity due to excess calories; D64.9 Anemia, unspecified; R54 Age-related physical debility; E11.40 Type 2 diabetes mellitus with diabetic neuropathy, unspecified; K21.9 Gastro-esophageal reflux disease without esophagitis; G40.909 Epilepsy, unspecified, not intractable, without status epilepticus; T14.8XXA Other injury of unspecified body region, initial encounter; Z93.3 Colostomy status; Z79.84 Long term (current) use of oral hypoglycemic drugs; Z79.899 Other long term (current) drug therapy; Z79.4 Long term (current) use of insulin; W18.30XA Fall on same level, unspecified, initial encounter; Z86.73 Personal history of transient ischemic attack (TIA), and cerebral infarction without residual deficits; Z79.02 Long term (current) use of antithrombotics/antiplatelets; Z91.018 Allergy to other foods; Z79.82 Long term (current) use of aspirin; Z98.890 Other specified postprocedural states; Z87.891 Personal history of nicotine dependence
CPT/HCPCS: 36415; 51701; 51702; 73700; 76882; 80048; 80053; 80069; 81001; 81050; 82010; 82248; 82330; 82550; 82565; 82803; 82947; 83036; 83516; 83605; 83735; 83930; 84100; 84156; 84166; 85014; 85018; 85025; 86039; 86334; 86335; 87040; 87077; 87086; 87186; 93306; 94660; 94762; 96360; 97110; 97161; 97530; 99285-25; A9270; J0360; J0612; J0692; J0696; J1171; J1644; J1815; J2405; J3010; J7030; J7040; J7042; J7050; J7120

== ENCOUNTER 2025-04-17 00:41 | Day surgery (SDC) | payer OTHER ==
[~2025-04-17 00:41] MED LIST changes: +AMLODIPINE-OLM1 EACH PO; +BUSPIRONE HCL7.5 M1 PO; +Crestor40 MG PO; +INSULIN LI100 UNIT/7; +NYAMYC15 G1 TOP; +OXAYDO5 M1 PO
[2025-04-17] MEDS ORDERED: Lidocaine HCl 4% Cream 5 GM ONE (12:25)
== END 2025-04-17 23:00 | disposition home or self-care (01) ==
LOC: WOUND 00:41
DX: E11.622 Type 2 diabetes mellitus with other skin ulcer (principal); L97.312 Non-pressure chronic ulcer of right ankle with fat layer exposed; E11.42 Type 2 diabetes mellitus with diabetic polyneuropathy; I10 Essential (primary) hypertension; Z88.8 Allergy status to other drugs, medicaments and biological substances; Z91.018 Allergy to other foods
CPT/HCPCS: A6213; A9270; G0463

== ENCOUNTER 2025-04-25 07:56 | Day surgery (SDC) | payer OTHER ==
[2025-04-25] MEDS ORDERED: Lidocaine HCl 4% Cream 5 GM ONE (13:47)
== END 2025-04-25 23:25 | disposition home or self-care (01) ==
LOC: WOUND 07:56
DX: E11.622 Type 2 diabetes mellitus with other skin ulcer (principal); L97.313 Non-pressure chronic ulcer of right ankle with necrosis of muscle; L97.312 Non-pressure chronic ulcer of right ankle with fat layer exposed; I89.0 Lymphedema, not elsewhere classified; E11.42 Type 2 diabetes mellitus with diabetic polyneuropathy; I10 Essential (primary) hypertension; E66.01 Morbid (severe) obesity due to excess calories; Z68.44 Body mass index [BMI] 60.0-69.9, adult
CPT/HCPCS: A6213; A9270

== ENCOUNTER 2025-05-02 02:34 | Day surgery (SDC) | payer OTHER ==
[2025-05-02] MEDS ORDERED: Lidocaine HCl 4% Cream 5 GM ONE (13:59)
== END 2025-05-02 23:20 | disposition home or self-care (01) ==
LOC: WOUND 02:34
DX: E11.622 Type 2 diabetes mellitus with other skin ulcer (principal); L97.313 Non-pressure chronic ulcer of right ankle with necrosis of muscle; E11.42 Type 2 diabetes mellitus with diabetic polyneuropathy; I89.0 Lymphedema, not elsewhere classified; I10 Essential (primary) hypertension; E66.01 Morbid (severe) obesity due to excess calories
CPT/HCPCS: A6213; A9270

== ENCOUNTER 2025-05-23 14:15 | Day surgery (SDC) | payer OTHER | END 2025-05-23 23:00 | disposition home or self-care (01) | LOC: WOUND | DX: E11.622 Type 2 diabetes mellitus with other skin ulcer (principal); L97.313 Non-pressure chronic ulcer of right ankle with necrosis of muscle; I10 Essential (primary) hypertension; E11.42 Type 2 diabetes mellitus with diabetic polyneuropathy | CPT/HCPCS: A6213; G0463 ==